=== PATIENT | female | born 1950 | race Caucasian/White ===

== ENCOUNTER 2017-02-24 13:08 | Outpatient (CLI) | payer MEDICARE | END 2017-02-24 13:09 | disposition home or self-care (01) | DX: M51.24 Other intervertebral disc displacement, thoracic region (principal); M79.2 Neuralgia and neuritis, unspecified ==

== ENCOUNTER 2017-04-18 17:46 | Outpatient (CLI) | payer MEDICARE | END 2017-04-18 17:47 | disposition EMS.NT | DX: R41.0 Disorientation, unspecified (principal) ==

== ENCOUNTER 2017-07-02 13:13 | Emergency (ER) | payer MEDICARE ==
[2017-07-02 13:26] VITALS: BP 136/83
[2017-07-02 14:40] LABS: BASOPHILS # (AUTO) 0.1 10^3/uL (0.0-0.1); BASOPHILS % (AUTO) 0.7 %; EOSINOPHILS # (AUTO) 0.1 10^3/uL (0.0-0.7); EOSINOPHILS % (AUTO) 0.8 %; LYMPHOCYTES # (AUTO) 1.5 10^3/uL (1.5-3.5); LYMPHOCYTES % (AUTO) 16.9 %; MEAN CORPUSCULAR HEMOGLOBIN 32.4 pg (27.0-31.0); MEAN CORPUSCULAR VOLUME 95.4 fL (81.0-99.0); MEAN PLATELET VOLUME 6.7 fL (7.9-10.8); MONOCYTES # (AUTO) 0.8 10^3/uL (0.0-1.0); MONOCYTES % (AUTO) 9.2 %; NEUTROPHILS # (AUTO) 6.4 10^3/uL (1.5-6.6); NEUTROPHILS % (AUTO) 72.4 %; NUCLEATED RED BLOOD CELLS AUTO 0.1 /100WBC; RED BLOOD COUNT 4.93 10^6/uL (4.20-5.40); RED CELL DISTRIBUTION WIDTH 13.6 % (12.0-15.0); UNCORRECTED WHITE BLOOD COUNT 8.8 x10^3/uL; WHITE BLOOD COUNT 8.8 x10^3/uL (4.8-10.8)
[2017-07-02 14:55] LABS: ALBUMIN/GLOBULIN RATIO 1.3 (1.0-2.2); BILIRUBIN,TOTAL 1.2 mg/dL (0.2-1.0); CALCIUM 9.6 mg/dL (8.5-10.3); CREATININE 0.7 mg/dL (0.4-1.0); POTASSIUM 4.3 mmol/L (3.5-5.0); TOTAL PROTEIN 7.7 g/dL (6.7-8.2)
[2017-07-02] MEDS ORDERED: ONDANSETRON 4 MG/2 ML VIAL IVP STA (15:16)
[2017-07-02] MEDS ORDERED: SODIUM CHLORIDE 0.9% 1,000 ML IV ONE (15:16)
[2017-07-02] MEDS ORDERED: ONDANSETRON 4 MG/2 ML VIAL ONE (15:37)
[2017-07-02] MEDS ORDERED: ONDANSETRON ODT 4 MG TABLET TL STA (16:10)
[2017-07-02] MEDS ORDERED: ONDANSETRON ODT 4 MG TABLET ONE (16:14)
--- NOTE | 2017-07-02 17:17 | ED Physician Documentation ---
PD HPI ABD PAIN - Stated complaint Stated Complaint: NAUSEA/FEMALE - Chief complaint Chief Complaint: Abd Pain - History obtained from History obtained from: Patient - History of Present Illness Timing - duration: Weeks (several) Timing - details: Still present Location: Epigastric Worsened by: Eating Similar symptoms before: Has not had sx before - Additional information Additional information: The patient is a 67-year-old female who presents with 2 complaints. She complains of being unable to swallow food or water, but states she can drink Diet Coke or red wine without difficulty. She states she has had no food for the past 3 days. She reports similar symptoms intermittently for the past 3 weeks. She denies abdominal pain or fever. She denies chest pain, cough, or shortness of breath. Her second complaint is vaginal soreness. She i concerned that she has a yeast infection. She reports associated dysuria. Review of Systems Constitutional: denies: Fever Nose: denies: Congestion Throat: denies: Sore throat Cardiac: denies: Chest pain / pressure Respiratory: denies: Dyspnea, Cough GI: reports: Nausea. denies: Abdominal Pain, Vomiting, Diarrhea : reports: Dysuria. denies: Frequency, Discharge Skin: denies: Rash Musculoskeletal: denies: Back pain Neurologic: denies: Focal weakness, Numbness, Headache PD PAST MEDICAL HISTORY - Past Medical History Past Medical History: Yes Cardiovascular: None Respiratory: None Neuro: None Endocrine/Autoimmune: Systemic lupus erythematosus GI: Other HEENT: Chronic sinusitis Musculoskeletal: Rheumatoid arthritis - Past Surgical History Past Surgical History: Yes General: Colonoscopy HEENT: Tonsil/Adenoidectomy - Present Medications Home Medications: Ambulatory Orders Medication Instructions Recorded Confirmed Acetaminophen [Tylenol] 650 mg PO Q6H PRN 02/09/14 07/02/17 Pseudoephedrine Syrup [Sudafed] 30 mg PO Q6HR PRN 02/09/14 07/02/17 Ondansetron Odt [Zofran] 4 mg TL Q6H PRN #10 tablet 07/02/17 - Allergies Allergies/Adverse Reactions: Allergies Allergy/AdvReac Type Severity Reaction Status Date / Time erythromycin base Allergy Severe Cramps Verified 07/02/17 13:27 [Erythromycin Base] Penicillins Allergy Severe Rash Verified 07/02/17 13:27 codeine AdvReac Severe Nausea Verified 07/02/17 13:27 - Social History Does the pt smoke?: No Smoking Status: Never smoker Does the pt have substance abuse?: No - Immunizations Immunizations are current?: No Immunizations: TDAP >10years/unknown PD ED PE NORMAL - Vitals Vital signs reviewed: Yes (normal) - General General: Alert and oriented X 3, Well developed/nourished, Other (Anxious appearing.) - HEENT HEENT: Atraumatic, EOMI, Pharynx benign - Neck Neck: No adenopathy, No JVD - Cardiac Cardiac: RRR, No murmur - Respiratory Respiratory: No respiratory distress, Clear bilaterally - Abdomen Abdomen: Normal bowel sounds, Soft, No organomegaly, Other (Mild epigastric tenderness to palpation. No rebound or guarding.) - Female Female : Puff Iron Operator present - Back Back: No CVA TTP - Derm Derm: No rash - Extremities Extremities: No edema, No calf tenderness / cord - Neuro Neuro: Alert and oriented X 3, No motor deficit, Normal speech PD ED PE EXPANDED - Female Female : Normal external, Normal exam, Cultures sent, Puff Iron Operator present, Other (The patient was so anxious about the pelvic exam that she would totally stiffen up with mere touching of her labia. The only way I was able to do a speculum exam was to have her spread her own labia. She was too anxious to allow bimanual exam.). No: Vaginal Discharge Results - Vitals Vitals: Oxygen O2 Source Room air - Labs Labs: Microbiology 07/02/17 16:30 Wet Prep - Final Vaginal 07/02/17 16:40 PATRICK Preparation - Final Other - Vaginal Laboratory Tests 07/02/17 07/02/17 07/02/17 14:34 14:34 15:20 WBC 8.8 RBC 4.93 Hgb 16.0 Hct 47.0 MCV 95.4 MCH 32.4 H MCHC 34.0 RDW 13.6 Plt Count 217 MPV 6.7 L Neut # 6.4 Lymph # 1.5 [place] # 0.8 Eos # 0.1 Baso # 0.1 Absolute Nucleated RBC 0.01 Nucleated RBCs 0.1 Sodium 138 Potassium 4.3 Chloride 97 L Carbon Dioxide 28 Anion Gap 13.0 BUN 7 Creatinine 0.7 Estimated GFR (MDRD) 83 L Glucose 107 H Calcium 9.6 Total Bilirubin 1.2 H AST 195 H ALT 143 H Alkaline Phosphatase 111 Total Protein 7.7 Albumin 4.4 Globulin 3.3 Albumin/Globulin Ratio 1.3 Lipase 23 Urine Color Cancelled Urine Clarity Cancelled Urine pH Cancelled Ur Specific [place] Cancelled Urine Protein Cancelled Urine Glucose (UA) Cancelled Urine Ketones Cancelled Urine Occult Blood Cancelled Urine Nitrite Cancelled Urine Bilirubin Cancelled Urine Urobilinogen Cancelled Ur Leukocyte Esterase Cancelled Ur Microscopic Review Cancelled Urine Culture Comments Cancelled PD MEDICAL DECISION MAKING - ED course Complexity details: reviewed results, re-evaluated patient, considered differential, d/w patient ED course: The patient's presentation is significant for epigastric abdominal discomfort with intermittent difficulty swallowing. Her CBC is normal, but her chemistry panel reveals mildly elevated liver enzymes with a total bilirubin of 1.2, AST 195, ALT 143. Alkaline phosphatase is normal at 111, and lipase is normal at 23. The urine sample she collected was contaminated with toilet tissue, and she was unable to provide another urine sample. Wet mount and PATRICK prep from vaginal source were negative. GC and chlamydia cultures are pending. Multiple attempts at starting a peripheral IV were unsuccessful because of the patient's extreme anxiety, causing her to move her arm with any attempt at IV placement. In fact she complained vociferously about even the tourniquet touching her arm. Treatment in the emergency department included administration of Zofran 4 mg orally. She subsequently demonstrated ability to drink water without recurrent nausea. Before providing a clean urine sample she insisted on leaving the emergency department, stating that she had already been here too long and needed to get home. I do not have adequate explanations for her symptoms of intermittent difficulty swallowing and vaginal soreness. Urinary tract infection remains a consideration, but the patient is not willing to stay to provide a urine specimen. The possibility of esophageal stricture is considered, but her symptoms are atypical for that diagnosis. With a normal lipase, I doubt pancreatitis. Her symptoms also are not typical for biliary colic. I discussed with her the importance of outpatient follow-up, as well as potentially worrisome signs or symptoms that should prompt reevaluation in the emergency department. I discussed with her that in addition to a urinalysis, an ultrasound of the right upper quadrant to evaluate her liver and gallbladder may be an appropriate next step in her evaluation. Departure - Departure Disposition: 01 Home, Self Care Clinical Impression: Elevated liver enzymes Vomiting Qualifiers: Vomiting type: unspecified Vomiting Intractability: non-intractable Nausea presence: with nausea Qualified Code(s): R11.2 - Nausea with vomiting, unspecified Abdominal pain Qualifiers: Abdominal location: right upper quadrant Qualified Code(s): R10.11 - Right upper quadrant pain Condition: Stable Instructions: ED Nausea Vomiting Prescriptions: Ondansetron Odt [Zofran] 4 mg TL Q6H PRN #10 tablet PRN Reason: Nausea / Vomiting Comments: Drink plenty of fluids. Use Zofran as prescribed if needed for nausea. Follow up with primary physician within 2 weeks. Call to schedule an appointment. Return to the emergency department if you develop increasing abdominal pain, persistent vomiting, or otherwise worsening symptoms. Discharge Date/Time: 07/02/17 17:28
[2017-07-02] MEDS ORDERED: SODIUM CHLORIDE FLUSH 0.9% 10 ML SYRINGE IVP ONE (17:19)
== END 2017-07-02 17:28 | disposition home or self-care (01) ==
LOC: ED 13:13
DX: R10.11 Right upper quadrant pain (principal); R11.2 Nausea with vomiting, unspecified; R74.8 Abnormal levels of other serum enzymes
CPT/HCPCS: 36415; 80053; 83690; 85025; 87210; 87220; 87491; 87591; 99283; Q0162; 81001; 81003; 87086

== ENCOUNTER 2017-07-19 10:44 | Emergency (ER) | payer MEDICARE ==
[2017-07-19 11:36] LABS: BILIRUBIN,URINE NEGATIVE (NEGATIVE); UA w/ MICROSCOPIC CHARGE YES
[2017-07-19 11:59] LABS: UR CULTURE IF IND NOT INDICATED; WBC,URINE 0-3 /HPF (0-5)
[2017-07-19 12:17] VITALS: BP 130/66
[2017-07-19] MEDS ORDERED: SODIUM CHLORIDE 0.9% 1,000 ML IV ONE ×2 (12:30→14:00)
--- NOTE | 2017-07-19 12:34 | ED Physician Documentation ---
PD HPI NVD - Stated complaint Stated Complaint: VOMITING - Chief complaint Chief Complaint: Abd Pain - History obtained from History obtained from: Patient - History of Present Illness Timing - onset: How many weeks ago (5) Timing - duration: Weeks (5) Timing - details: Gradual onset, Still present Associated symptoms: Abdominal pain, Dizzy, Near syncope / syncope, Loss of appetite, Weight loss Contributing factors: Alcohol use Improved by: Laying still Worsened by: Moving Similar symptoms before: Has not had sx before Recently seen: Emergency Dept (Seen here) - Additonal information Additional information: 67-year-old female with a history of celiac disease who complains of a 5 week history of a decreased appetite difficulty eating foods and vomiting. She indicates she has vomited daily for the whole 5 weeks. She is having some lower abdominal pain but is not severe. She is not having urinary symptoms and she denies diarrhea. She does indicate a decreased caliber of her stool and a more formed firm stool than usual. She denies any consumption of wheat or wheat products. She indicates that she was well prior to the onset of these symptoms 5 weeks ago. She thinks that she has lost about 10 pounds. She feels dehydrated. Review of Systems Constitutional: reports: Myalgias, Fatigue. denies: Fever Eyes: denies: Decreased vision Nose: denies: Congestion Throat: denies: Sore throat Cardiac: denies: Chest pain / pressure, Palpitations Respiratory: denies: Dyspnea, Cough GI: reports: Abdominal Pain, Nausea, Vomiting, Constipation. denies: Diarrhea : denies: Dysuria, Frequency Skin: denies: Rash Musculoskeletal: reports: Back pain. denies: Neck pain, Extremity pain, Extremity swelling Neurologic: reports: Generalized weakness. denies: Focal weakness, Numbness PD PAST MEDICAL HISTORY - Past Medical History Cardiovascular: None Respiratory: None Neuro: None Endocrine/Autoimmune: Systemic lupus erythematosus GI: Other HEENT: Chronic sinusitis Musculoskeletal: Rheumatoid arthritis - Past Surgical History Past Surgical History: Yes General: Colonoscopy HEENT: Tonsil/Adenoidectomy - Present Medications Home Medications: Ambulatory Orders Medication Instructions Recorded Confirmed Ondansetron Odt [Zofran] 4 mg TL Q6H PRN #10 tablet 07/19/17 - Allergies Allergies/Adverse Reactions: Allergies Allergy/AdvReac Type Severity Reaction Status Date / Time erythromycin base Allergy Severe Cramps Verified 07/19/17 11:06 [Erythromycin Base] Penicillins Allergy Severe Rash Verified 07/19/17 11:06 codeine AdvReac Severe Nausea Verified 07/19/17 11:06 - Social History Does the pt smoke?: No Smoking Status: Never smoker Does the pt have substance abuse?: No - Immunizations Immunizations are current?: No Immunizations: TDAP >10years/unknown - POLST Patient has POLST: No PD ED PE NORMAL - Vitals Vital signs reviewed: Yes (tachy and hypertensive) - General General: No acute distress, Well developed/nourished - HEENT HEENT: Atraumatic, PERRL, EOMI - Neck Neck: Supple, no meningeal sign - Cardiac Cardiac: Other (tachy with hyperdynamic precordium. ) - Respiratory Respiratory: No respiratory distress, Clear bilaterally - Abdomen Abdomen: Soft, Non tender - Back Back: No CVA TTP, No spinal TTP - Derm Derm: Normal color, Warm and dry, No rash - Extremities Extremities: No deformity, No edema - Neuro Neuro: No motor deficit, No sensory deficit, Normal speech - Psych Psych: Normal mood, Normal affect Results - Vitals Vitals: Vital Signs - 24 hr 07/19/17 07/19/17 10:45 12:17 Temperature 36.4 C L Heart Rate 118 H 83 Respiratory 18 16 Rate Blood Pressure 147/91 H 130/66 O2 Saturation 95 96 Oxygen O2 Source Room air - Labs Labs: Laboratory Tests 07/19/17 07/19/17 07/19/17 11:15 13:20 13:20 WBC 7.1 RBC 4.52 Hgb 14.7 Hct 43.0 MCV 95.3 MCH 32.6 H MCHC 34.2 RDW 13.4 Plt Count 148 MPV 7.5 L Neut # 5.6 Lymph # 0.8 L [place] # 0.7 Eos # 0.0 Baso # 0.0 Absolute Nucleated RBC 0.00 Nucleated RBCs 0.0 Sodium 135 Potassium 3.9 Chloride 97 L Carbon Dioxide 28 Anion Gap 10.0 BUN 9 Creatinine 0.8 Estimated GFR (MDRD) 71 L Glucose 106 H Calcium 8.4 L Total Bilirubin 1.2 H AST 257 H ALT 160 H Alkaline Phosphatase 91 Troponin I Total Protein 6.3 L Albumin 3.7 Globulin 2.6 Albumin/Globulin Ratio 1.4 Lipase 26 Urine Color YELLOW Urine Clarity CLEAR Urine pH 6.0 Ur Specific [place] 1.025 Urine Protein 30 H Urine Glucose (UA) NEGATIVE Urine Ketones 15 H Urine Occult Blood TRACE-INTA Urine Nitrite NEGATIVE Urine Bilirubin NEGATIVE Urine Urobilinogen 1 (NORMAL) Ur Leukocyte Esterase TRACE H Urine RBC 3 Urine WBC 0-3 Ur Squamous Epith Cells MOD Squamous H Urine Bacteria Rare Ur Microscopic Review INDICATED Urine Culture Comments NOT INDICATED 07/19/17 13:20 WBC RBC Hgb Hct MCV MCH MCHC RDW Plt Count MPV Neut # Lymph # [place] # Eos # Baso # Absolute Nucleated RBC Nucleated RBCs Sodium Potassium Chloride Carbon Dioxide Anion Gap BUN Creatinine Estimated GFR (MDRD) Glucose Calcium Total Bilirubin AST ALT Alkaline Phosphatase Troponin I < 0.04 Total Protein Albumin Globulin Albumin/Globulin Ratio Lipase Urine Color Urine Clarity Urine pH Ur Specific [place] Urine Protein Urine Glucose (UA) Urine Ketones Urine Occult Blood Urine Nitrite Urine Bilirubin Urine Urobilinogen Ur Leukocyte Esterase Urine RBC Urine WBC Ur Squamous Epith Cells Urine Bacteria Ur Microscopic Review Urine Culture Comments Procedures - IVC sono (time) 1230 Bedside IVC sono: IVC measures (cm) (0.69), Significant dehydration PD MEDICAL DECISION MAKING - ED course Complexity details: reviewed results, re-evaluated patient, considered differential, d/w patient ED course: 67-year-old female with a 5 week history of nausea and vomiting decreased appetite and weight loss is found to be significantly dehydrated on interrogation of the inferior vena cava and IV is begun and fluids are started. Blood work is pending. Her blood work again shows elevated LFT's today this is worse than 2 weeks ago with a stable bilirubin. She feels much improved with the fluids and wants to go home. I discussed further evaluation to include a CT of the abdomen and pelvis to further asses the hepatitis and she declined. My concern for this with weight loss and loss of appetite is pancreatic cancer. She would prefer to go home this afternoon and follow up for any further testing. Departure - Departure Disposition: 01 Home, Self Care Clinical Impression: Dehydration, Elevated liver enzymes Instructions: ED Dehydration, Liver Disease Common Tests Follow-Up: Yassine Banuelos MD [Provider Admit Priv/Credential] - Amira Christianson MD [Provider Admit Priv/Credential] - Prescriptions: Ondansetron Odt [Zofran] 4 mg TL Q6H PRN #10 tablet PRN Reason: Nausea / Vomiting Comments: Today here in the emergency department we found your significantly dehydrated. In addition there are elevations to your liver functions and this will require a follow-up. I have listed to clinics in [place] for you to consider for follow-up. There is blood work that is pending regarding hepatitis type and the follow-up for this should be through a primary care doctor.
[2017-07-19 13:30] LABS: BASOPHILS % (AUTO) 0.5 %; EOSINOPHILS % (AUTO) 0.3 %; HGB - HEMOGLOBIN 14.7 g/dL (12.0-16.0); LYMPHOCYTES # (AUTO) 0.8 10^3/uL (1.5-3.5); LYMPHOCYTES % (AUTO) 10.5 %; MEAN CORPUSCULAR HEMOGLOBIN 32.6 pg (27.0-31.0); MEAN CORPUSCULAR HGB CONC 34.2 g/dL (32.0-36.0); MEAN CORPUSCULAR VOLUME 95.3 fL (81.0-99.0); MEAN PLATELET VOLUME 7.5 fL (7.9-10.8); MONOCYTES # (AUTO) 0.7 10^3/uL (0.0-1.0); MONOCYTES % (AUTO) 10.3 %; NEUTROPHILS # (AUTO) 5.6 10^3/uL (1.5-6.6); NEUTROPHILS % (AUTO) 78.4 %; RED BLOOD COUNT 4.52 10^6/uL (4.20-5.40); RED CELL DISTRIBUTION WIDTH 13.4 % (12.0-15.0); UNCORRECTED WHITE BLOOD COUNT 7.1 x10^3/uL; WHITE BLOOD COUNT 7.1 x10^3/uL (4.8-10.8)
[2017-07-19 13:41] LABS: ALBUMIN/GLOBULIN RATIO 1.4 (1.0-2.2); BILIRUBIN,TOTAL 1.2 mg/dL (0.2-1.0); CALCIUM 8.4 mg/dL (8.5-10.3); CREATININE 0.8 mg/dL (0.4-1.0); POTASSIUM 3.9 mmol/L (3.5-5.0); TOTAL PROTEIN 6.3 g/dL (6.7-8.2)
== END 2017-07-19 14:54 | disposition home or self-care (01) ==
LOC: ED 10:44
DX: E86.0 Dehydration (principal); R74.8 Abnormal levels of other serum enzymes; K90.0 Celiac disease; M32.9 Systemic lupus erythematosus, unspecified; M06.9 Rheumatoid arthritis, unspecified
CPT/HCPCS: 36415; 80053; 80074; 81001; 81003; 83690; 84484; 85025; 87086; 96360; 96361; 99283; 99284

== ENCOUNTER 2017-07-24 11:41 | Emergency (ER) | payer MEDICARE ==
[2017-07-24] MEDS ORDERED: SODIUM CHLORIDE 0.9% 1,000 ML IV ONE ×2 (13:08→13:34)
[2017-07-24 13:30] LABS: BASOPHILS % (AUTO) 0.6 %; EOSINOPHILS # (AUTO) 0.1 10^3/uL (0.0-0.7); EOSINOPHILS % (AUTO) 0.8 %; HCT - HEMATOCRIT 45.5 % (37.0-47.0); HGB - HEMOGLOBIN 15.7 g/dL (12.0-16.0); LYMPHOCYTES # (AUTO) 1.1 10^3/uL (1.5-3.5); LYMPHOCYTES % (AUTO) 15.2 %; MEAN CORPUSCULAR HEMOGLOBIN 32.8 pg (27.0-31.0); MEAN CORPUSCULAR HGB CONC 34.6 g/dL (32.0-36.0); MONOCYTES % (AUTO) 14.3 %; NEUTROPHILS # (AUTO) 4.8 10^3/uL (1.5-6.6); NEUTROPHILS % (AUTO) 69.1 %; NUCLEATED RED BLOOD CELLS AUTO 0.1 /100WBC; RED BLOOD COUNT 4.79 10^6/uL (4.20-5.40); RED CELL DISTRIBUTION WIDTH 13.6 % (12.0-15.0)
[2017-07-24] MEDS ORDERED: PROMETHAZINE INJ 12.5 MG in SODIUM CHLORIDE 0.9% 50 ML IV STA (13:33)
--- NOTE | 2017-07-24 13:37 | ED Physician Documentation ---
History of Present Illness - Stated complaint Stated Complaint: NAUSEA/VOMITING - Chief complaint Chief Complaint: Abd Pain - History obtained from History obtained from: Patient - History of Present Illness Timing: How many weeks ago (6) Pain level max: 0 Pain level now: 0 Improved by: nothing Worsened by: eating - Additonal information Additional information: Patient is a 67-year-old female with a past medical history significant for celiac disease who presents to the emergency department for 6 weeks of vomiting. States unable to tolerate p.o., though also states she does not really try to eat or drink anything because she has no appetite. States Zofran does not help. States her sister has something similar and takes Phenergan for this which seems to help her. Denies any blood in the vomit. States that she is to drink red wine and quit drinking this because it made her vomit as well. Denies any drug use. Does not smoke. Sees a new PCP on 08/12 Review of Systems Ten Systems: 10 systems reviewed and negative Constitutional: denies: Fever, Chills Ears: denies: Ear pain Nose: denies: Rhinorrhea / runny nose, Congestion Respiratory: denies: Cough GI: reports: Nausea, Vomiting. denies: Abdominal Pain, Abdominal Swelling, Diarrhea : denies: Dysuria Skin: denies: Rash Musculoskeletal: denies: Neck pain, Back pain Neurologic: denies: Headache PD PAST MEDICAL HISTORY - Past Medical History Cardiovascular: None Respiratory: None Neuro: None Endocrine/Autoimmune: Systemic lupus erythematosus GI: Other HEENT: Chronic sinusitis Musculoskeletal: Rheumatoid arthritis - Past Surgical History Past Surgical History: Yes General: Colonoscopy HEENT: Tonsil/Adenoidectomy - Present Medications Home Medications: Ambulatory Orders Medication Instructions Recorded Confirmed Ondansetron Odt [Zofran] 4 mg TL Q6H PRN #10 tablet 07/19/17 07/24/17 Famotidine [Pepcid] 20 mg PO BID #60 tablet 07/24/17 Promethazine Sup [Phenergan Supp] 12.5 mg [place] Q6H PRN #20 supp 07/24/17 Promethazine [Phenergan] 25 mg PO Q6H PRN #10 tab 07/24/17 Sucralfate [Carafate] 1 gm PO ACHS #60 tablet 07/24/17 - Allergies Allergies/Adverse Reactions: Allergies Allergy/AdvReac Type Severity Reaction Status Date / Time erythromycin base Allergy Severe Cramps Verified 07/19/17 11:06 [Erythromycin Base] Penicillins Allergy Severe Rash Verified 07/19/17 11:06 codeine AdvReac Severe Nausea Verified 07/19/17 11:06 - Social History Does the pt smoke?: No Smoking Status: Never smoker Does the pt have substance abuse?: No - Immunizations Immunizations are current?: No Immunizations: TDAP >10years/unknown - POLST Patient has POLST: No PD ED PE NORMAL - Vitals Vital signs reviewed: Yes - General General: Alert and oriented X 3 - HEENT HEENT: Moist mucous membranes - Neck Neck: Supple, no meningeal sign - Cardiac Cardiac: RRR - Respiratory Respiratory: No respiratory distress, Clear bilaterally - Abdomen Abdomen: Soft, Non tender, Non distended - Back Back: No CVA TTP, No spinal TTP - Derm Derm: Warm and dry, No rash - Extremities Extremities: No edema, No calf tenderness / cord - Neuro Neuro: Alert and oriented X 3 - Psych Psych: Normal mood, Normal affect Results - Vitals Vitals: Vital Signs - 24 hr 07/24/17 07/24/17 07/24/17 12:03 14:14 15:18 Temperature 36.4 C L Heart Rate 96 77 76 Respiratory 16 18 20 Rate Blood Pressure 139/75 H 164/78 H 138/54 H O2 Saturation 97 97 98 Oxygen O2 Source Room air - Labs Labs: Laboratory Tests 07/24/17 07/24/17 13:27 13:27 WBC 7.0 RBC 4.79 Hgb 15.7 Hct 45.5 MCV 95.0 MCH 32.8 H MCHC 34.6 RDW 13.6 Plt Count 162 MPV 7.0 L Neut # 4.8 Lymph # 1.1 L [place] # 1.0 Eos # 0.1 Baso # 0.0 Absolute Nucleated RBC 0.00 Nucleated RBCs 0.1 Sodium 134 L Potassium 3.2 L Chloride 95 L Carbon Dioxide 24 Anion Gap 15.0 H BUN 12 Creatinine 0.7 Estimated GFR (MDRD) 83 L Glucose 121 H Calcium 9.4 Total Bilirubin 2.2 H AST 267 H ALT 297 H Alkaline Phosphatase 109 Total Protein 6.6 L Albumin 3.8 Globulin 2.8 Albumin/Globulin Ratio 1.4 Lipase 22 - Rads (name of study) CT abd/pelvis Radiology: Prelim report reviewed, EMP read contemporaneously, See rad report ( Steatosis of the liver. No localizing a acute inflammatory process. Left ovarian dermoid. Small hiatal hernia. No dilated bowel or bowel obstruction. ) PD MEDICAL DECISION MAKING - ED course Complexity details: reviewed old records, reviewed results, re-evaluated patient , considered differential, d/w patient ED course: Patient is a 67-year-old female who presents to the emergency department with vomiting for the past several weeks. She has increasingly elevated liver function tests, unclear etiology. Negative hepatitis panel recently. CT scan reveals no acute abnormalities to explain her symptoms. Does feel better after GI cocktail and is able to tolerate p.o. Possible gastritis? Has an appointment with a new PCP coming up. She is comfortable going home at this time and will return if she worsens. Patient is well-appearing, nontoxic. Afebrile. Patient counseled regarding signs and symptoms for which I believe and urgent re-evaluation would be necessary. Patient with good understanding of and agreement to plan and is comfortable going home at this time This document was made in part using voice recognition software. While efforts are made to proofread this document, sound alike and grammatical errors may occur. Departure - Departure Disposition: 01 Home, Self Care Clinical Impression: Elevated liver enzymes, Dehydration, Dermoid cyst Vomiting Qualifiers: Vomiting type: unspecified Vomiting Intractability: non-intractable Nausea presence: with nausea Qualified Code(s): R11.2 - Nausea with vomiting, unspecified Condition: Good Instructions: ED Nausea Vomiting Follow-Up: your,doctor as scheduled [Other] Prescriptions: Sucralfate [Carafate] 1 gm PO ACHS #60 tablet Famotidine [Pepcid] 20 mg PO BID #60 tablet Promethazine [Phenergan] 25 mg PO Q6H PRN #10 tab PRN Reason: Nausea / Vomiting Promethazine Sup [Phenergan Supp] 12.5 mg [place] Q6H PRN #20 supp PRN Reason: Nausea / Vomiting Comments: Return if you worsen. You need to take the medications as prescribed. You need further testing with your doctor regarding your elevated liver enzymes, this may include an ultrasound and/or abdominal MRI/ MRCP. You also have a dermoid cyst on the left ovary that needs follow up with your doctor as well. Discharge Date/Time: 07/24/17 15:23
[2017-07-24 13:43] LABS: ALBUMIN/GLOBULIN RATIO 1.4 (1.0-2.2); BILIRUBIN,TOTAL 2.2 mg/dL (0.2-1.0); CALCIUM 9.4 mg/dL (8.5-10.3); CREATININE 0.7 mg/dL (0.4-1.0); POTASSIUM 3.2 mmol/L (3.5-5.0); TOTAL PROTEIN 6.6 g/dL (6.7-8.2)
[2017-07-24] MEDS ORDERED: PROMETHAZINE 25 MG/1 ML VIAL ONE (13:45)
[2017-07-24] MEDS ORDERED: IOPAMIDOL-300 100 ML VIAL IVP ONE (14:17)
--- NOTE | 2017-07-24 14:49 | CT Preliminary Report ---
Exam: CT Abdomen/Pelvis W/ IMPRESSION: 1. Steatosis of the liver. 2. No localizing a acute inflammatory process. 3. Left ovarian dermoid. 4. Small hiatal hernia. 5. No dilated bowel or bowel obstruction. [facility] SITE ID: [id number]
--- NOTE | 2017-07-24 14:52 | CT Report ---
EXAM: CT ABDOMEN AND PELVIS EXAM DATE: 07/24/2017 02:18 PM. CLINICAL HISTORY: Vomiting x 6 weeks, elevated LFT. COMPARISONS: None. TECHNIQUE: Routine helical CT imaging was performed through the abdomen and pelvis. IV contrast: 100 cc Isovue-300 IV. Enteric contrast: No. Reconstructions: Coronal and sagittal. In accordance with CT protocol optimization, one or more of the following dose reduction techniques w ere utilized for this exam: automated exposure control, adjustment of mA and/or KV based on patient s ize, or use of iterative reconstructive technique. FINDINGS: Lung Bases: Unremarkable. Liver: Normal. No masses. Gallbladder/Bile Ducts: Unremarkable. Spleen: Normal. Pancreas: Normal. Adrenal Glands: Normal. Kidneys: Normal. No masses or hydronephrosis. Peritoneal Cavity/Bowel: Normal. No free fluid, free air or adenopathy. No masses or acute inflammato ry process. No localizing inflammatory process. There is a small hiatal hernia. Pelvic Organs: There is a fat density mass in the left adnexa consistent with a left ovarian dermoid measuring 2.1 cm in diameter. Uterus and right ovary appear unremarkable. Urinary bladder is empty. Vasculature: No aneurysms or other significant abnormality. Bones: No significant abnormality. Other: None. IMPRESSION: 1. Steatosis of the liver. 2. No localizing a acute inflammatory process. 3. Left ovarian dermoid. 4. Small hiatal hernia. 5. No dilated bowel or bowel obstruction. [facility] Referring Provider Line: [phone] SITE ID: [id number]
[2017-07-24] MEDS ORDERED: MAG HYDROX/AL HYDROX/SIMETH 30 ML UDC PO STA (14:58)
[2017-07-24] MEDS ORDERED: SUCRALFATE 1 GM/10 ML UDC PO STA (14:58)
[2017-07-24] MEDS ORDERED: PANTOPRAZOLE 40 MG VIAL IVP STA (14:58)
[2017-07-24] MEDS ORDERED: SUCRALFATE 1 GM/10 ML UDC ONE (15:04)
[2017-07-24] MEDS ORDERED: PANTOPRAZOLE 40 MG VIAL ONE (15:05)
[2017-07-24] MEDS ORDERED: MAG HYDROX/AL HYDROX/SIMETH 30 ML UDC ONE (15:05)
[2017-07-24 15:20] VITALS: BP 138/54
== END 2017-07-24 15:23 | disposition home or self-care (01) ==
LOC: ED 11:41
DX: R79.89 Other specified abnormal findings of blood chemistry (principal); E86.0 Dehydration; D36.9 Benign neoplasm, unspecified site; R11.2 Nausea with vomiting, unspecified; M32.9 Systemic lupus erythematosus, unspecified; K90.0 Celiac disease
CPT/HCPCS: 74177; 80053; 83690; 85025; 96365; 99283; 99284; A9270; J7040; Q9967; 36415

== ENCOUNTER 2017-08-12 14:36 | Outpatient (CLI) | payer MEDICARE ==
[2017-08-12 16:07] LABS: ALBUMIN/GLOBULIN RATIO 1.1 (1.0-2.2); BILIRUBIN,TOTAL 0.9 mg/dL (0.2-1.0); CALCIUM 9.4 mg/dL (8.5-10.3); CREATININE 0.7 mg/dL (0.4-1.0); POTASSIUM 3.9 mmol/L (3.5-5.0)
[2017-08-13 11:19] LABS: TEST RESULT REPORT (())
[2017-08-13 15:23] LABS: HEPATITIS A AB TOTAL(IMMUNITY) NON-REACTIVE (NON-REACTIVE)
[2017-08-14 12:47] LABS: ANA SCREEN NEGATIVE (NEGATIVE)
[2017-08-14 14:52] LABS: TEST RESULT REPORT (())
[2017-08-14 15:37] LABS: ALPHA 1 GLOBULIN 0.4 g/dL (0.2-0.3); ALPHA 2 GLOBULIN 0.9 g/dL (0.5-0.9); BETA 1 GLOBULIN 0.4 g/dL (0.4-0.6); BETA 2 GLOBULIN 0.4 g/dL (0.2-0.5); GAMMA GLOBULIN 0.8 g/dL (0.8-1.7)
[2017-08-14 21:32] LABS: LIVER KIDNEY MICROSOME AB <20.0 U (())
[2017-08-14 22:56] LABS: SMOOTH MUSCLE IGG AB <20 U (())
== END 2017-08-12 14:37 | disposition home or self-care (01) ==
LOC: LAB 14:36
PROVIDERS: ATTEND Internal Medicine
DX: R74.8 Abnormal levels of other serum enzymes (principal); R11.2 Nausea with vomiting, unspecified
CPT/HCPCS: 36415; 80053; 81599; 82390; 82728; 83516; 83540; 84155; 84165; 84466; 86038; 86317; 86376; 86704; 86708; 86709; 86803; 87340

== ENCOUNTER 2017-08-19 14:24 | Outpatient (CLI) | payer MEDICARE, MEDICAID ==
[2017-08-19 15:33] LABS: THYROID STIMULATING HORMONE 2.74 uIU/mL (0.34-5.60)
== END 2017-08-19 14:25 | disposition home or self-care (01) ==
LOC: LAB 14:24
PROVIDERS: ATTEND Internal Medicine
DX: R41.3 Other amnesia (principal)
CPT/HCPCS: 36415; 82607; 84443; 86780

== ENCOUNTER 2017-08-26 11:35 | Day surgery (SDC) | payer MEDICARE, MEDICAID ==
[2017-08-26] MEDS ORDERED: MIDAZOLAM 2 MG/2 ML VIAL IVP ONE (11:36)
[2017-08-26] MEDS ORDERED: fentaNYL 100 MCG/2 ML VIAL IVP ONE (11:36)
[2017-08-26] MEDS ORDERED: ONDANSETRON 4 MG/2 ML VIAL IVP ONE (11:36)
[2017-08-26] MEDS ORDERED: LACTATED RINGERS 1,000 ML IV ONE (12:42)
[2017-08-26] MEDS ORDERED: BENZOCAINE/TETRACAINE/BUTAMBEN SPRAY 56 GM TOP ONE (14:48)
[2017-08-26 15:42] VITALS: BP 122/68
== END 2017-08-26 11:36 | disposition home or self-care (01) ==
LOC: SDS 11:35
PROVIDERS: ATTEND Surgery
PROC: 0DB68ZX Excision of Stomach, Via Natural or Artificial Opening Endoscopic, Diagnostic (ICD-10-PCS; principal; 2017-08-26 12:45)
DX: R11.2 Nausea with vomiting, unspecified (principal)
CPT/HCPCS: 43239; 88305; A9270; J7120

== ENCOUNTER 2017-09-08 13:49 | Outpatient (CLI) | payer MEDICARE, MEDICAID ==
--- NOTE | 2017-09-08 16:47 | CT Report ---
CT OF BRAIN WITHOUT CONTRAST: 09/08/2017 CLINICAL INDICATION: Memory loss. TECHNIQUE: Axial CT images of the brain were obtained without contrast. No previous CT is available f or comparison. FINDINGS: The ventricles and sulci demonstrate mild symmetric enlargement, compatible with atrophy. There is no evidence of hydrocephalus. No hemorrhage, mass effect, or midline shift is present. The b asilar cisterns are patent. The visualized orbital contents and paranasal sinuses are unremarkable. IMPRESSION: MILD ATROPHY. NO HEMORRHAGE OR MASS EFFECT. In accordance with CT protocol optimization, one or more of the following dose reduction techniques w ere utilized for this exam: automated exposure control, adjustment of mA and/or KV based on patient size, or use of iterative reconstructive technique. JOB #: [id number] EXT JOB #:[id number]
== END 2017-09-08 13:50 | disposition home or self-care (01) ==
LOC: DI 13:49
PROVIDERS: ATTEND Internal Medicine
DX: G31.9 Degenerative disease of nervous system, unspecified (principal); R41.3 Other amnesia
CPT/HCPCS: 70450

== ENCOUNTER 2017-09-15 14:07 | Observation (INO) | payer MEDICARE, MEDICAID ==
--- NOTE | 2017-09-15 14:24 | ED Physician Documentation ---
PD HPI ALTERED MENTAL STATUS - Stated complaint Stated Complaint: WELFARE CHECK - Chief complaint Chief Complaint: Neuro - History obtained from History obtained from: EMS - History of Present Illness Timing - onset: Other (67yo woman brought in by EMS for welfare check. Hx from Dr Christianson, has H/O EtOH. Charts shows she was a reasonable historian recently and recent endoscopy with H. Pylori. Seems like an subacute decrease in mental status. Does use EtOH. Per Dr. Christianson she thinks probably a long history of alcohol abuse has caused this. She had a head CT just a few days ago that was grossly negative.) Review of Systems Unable to obtain: AMS PD PAST MEDICAL HISTORY - Past Medical History Cardiovascular: None Respiratory: None Neuro: None Endocrine/Autoimmune: Systemic lupus erythematosus GI: Other : None HEENT: Chronic sinusitis Psych: None Musculoskeletal: Rheumatoid arthritis Derm: None - Past Surgical History Past Surgical History: Yes General: Colonoscopy HEENT: Tonsil/Adenoidectomy - Present Medications Home Medications: Ambulatory Orders Medication Instructions Recorded Confirmed Clarithromycin 500 mg PO BID 09/17/17 09/17/17 Metronidazole 1 tab PO TID 09/17/17 09/17/17 Omeprazole [PriLOSEC] 20 mg PO DAILY 09/17/17 09/17/17 Promethazine [Phenergan] 12.5 mg MN Q6H PRN 09/17/17 09/17/17 - Allergies Allergies/Adverse Reactions: Allergies Allergy/AdvReac Type Severity Reaction Status Date / Time erythromycin base Allergy Severe Cramps Verified 09/15/17 19:18 [Erythromycin Base] Penicillins Allergy Severe Rash Verified 09/15/17 19:18 codeine AdvReac Severe Nausea Verified 09/15/17 19:18 - Social History Does the pt smoke?: No Smoking Status: Never smoker Does the pt have substance abuse?: No - Immunizations Immunizations are current?: No Immunizations: TDAP >10years/unknown - POLST Patient has POLST: No PD ED PE NORMAL - Vitals Vital signs reviewed: Yes - General General: Other (She is pleasant and oriented to person but not place or time, cannot name the date or year. She thinks she is in [place]. She recognizes she is in a hospital but she is at [place].) - HEENT HEENT: Other (Small pupils without nystagmus) - Neck Neck: Supple, no meningeal sign, No bony TTP - Cardiac Cardiac: RRR, No murmur - Respiratory Respiratory: No respiratory distress, Clear bilaterally - Abdomen Abdomen: Normal bowel sounds, Soft, Non tender - Extremities Extremities: No deformity, No tenderness to palpate - Neuro Neuro: campaign analyst 2-12 intact, No motor deficit, No sensory deficit, Other ( Cooperative with good strength in all 4 extremities, no asterixis. Normal finger to nose testing. No evidence of acute intoxication.) - Psych Psych: Normal mood, Normal affect Results - Vitals Vitals: Vital Signs - 24 hr 09/17/17 09/18/17 09/18/17 17:00 00:10 06:37 Temperature 36.6 C Heart Rate 88 86 92 Respiratory 15 16 16 Rate Blood Pressure 146/69 H 151/74 H 158/82 H O2 Saturation 99 99 99 09/18/17 11:48 Temperature 36.0 C L Heart Rate 60 Respiratory 14 Rate Blood Pressure 143/68 H O2 Saturation 99 Oxygen O2 Source Room air - Labs Labs: Laboratory Tests 09/15/17 09/15/17 09/15/17 15:00 15:00 15:00 WBC 13.5 H RBC 4.80 Hgb 15.0 Hct 44.5 MCV 92.6 MCH 31.3 H MCHC 33.8 RDW 13.5 Plt Count 294 MPV 7.3 L Neut # 10.8 H Lymph # 1.4 L [place] # 1.2 H Eos # 0.1 Baso # 0.0 Absolute Nucleated RBC 0.01 Nucleated RBC % 0.0 PT 11.6 INR 1.0 Sodium 135 Potassium 3.4 L Chloride 93 L Carbon Dioxide 27 Anion Gap 15.0 H BUN 15 Creatinine 0.8 Estimated GFR (MDRD) 71 L Glucose 143 H Calcium 9.8 Magnesium 1.9 Total Bilirubin 1.3 H AST 24 ALT 17 Alkaline Phosphatase 72 Ammonia Total Creatine Kinase 18 L Troponin I Total Protein 7.2 Albumin 3.9 Globulin 3.3 Albumin/Globulin Ratio 1.2 Lipase 28 Folate TSH Urine Color Urine Clarity Urine pH Ur Specific [place] Urine Protein Urine Glucose (UA) Urine Ketones Urine Occult Blood Urine Nitrite Urine Bilirubin Urine Urobilinogen Ur Leukocyte Esterase Urine RBC Urine WBC Ur Squamous Epith Cells Urine Bacteria Urine Mucus Ur Microscopic Review Urine Culture Comments Salicylates < 6.0 Urine Opiates Screen Ur Oxycodone Screen Urine Methadone Screen Ur Propoxyphene Screen Acetaminophen < 10 L Ur Barbiturates Screen Ur Tricyclics Screen Ur Phencyclidine Scrn Ur Amphetamine Screen U Methamphetamines Scrn U Benzodiazepines Scrn Urine Cocaine Screen U Cannabinoids Screen Ethyl Alcohol < 5.0 09/15/17 09/15/17 09/15/17 15:00 15:00 15:00 WBC RBC Hgb Hct MCV MCH MCHC RDW Plt Count MPV Neut # Lymph # [place] # Eos # Baso # Absolute Nucleated RBC Nucleated RBC % PT INR Sodium Potassium Chloride Carbon Dioxide Anion Gap BUN Creatinine Estimated GFR (MDRD) Glucose Calcium Magnesium Total Bilirubin AST ALT Alkaline Phosphatase Ammonia 9.0 Total Creatine Kinase Troponin I < 0.04 Total Protein Albumin Globulin Albumin/Globulin Ratio Lipase Folate TSH 1.91 Urine Color Urine Clarity Urine pH Ur Specific [place] Urine Protein Urine Glucose (UA) Urine Ketones Urine Occult Blood Urine Nitrite Urine Bilirubin Urine Urobilinogen Ur Leukocyte Esterase Urine RBC Urine WBC Ur Squamous Epith Cells Urine Bacteria Urine Mucus Ur Microscopic Review Urine Culture Comments Salicylates Urine Opiates Screen Ur Oxycodone Screen Urine Methadone Screen Ur Propoxyphene Screen Acetaminophen Ur Barbiturates Screen Ur Tricyclics Screen Ur Phencyclidine Scrn Ur Amphetamine Screen U Methamphetamines Scrn U Benzodiazepines Scrn Urine Cocaine Screen U Cannabinoids Screen Ethyl Alcohol 09/15/17 09/18/17 09/18/17 16:00 09:39 09:50 WBC RBC Hgb Hct MCV MCH MCHC RDW Plt Count MPV Neut # Lymph # [place] # Eos # Baso # Absolute Nucleated RBC Nucleated RBC % PT INR Sodium Potassium Chloride Carbon Dioxide Anion Gap BUN Creatinine Estimated GFR (MDRD) Glucose Calcium Magnesium Total Bilirubin AST ALT Alkaline Phosphatase Ammonia Total Creatine Kinase Troponin I Total Protein Albumin Globulin Albumin/Globulin Ratio Lipase Folate 3.20 L TSH Urine Color YELLOW YELLOW Urine Clarity CLEAR CLEAR Urine pH 6.0 6.0 Ur Specific [place] <=1.005 1.020 Urine Protein NEGATIVE NEGATIVE Urine Glucose (UA) NEGATIVE NEGATIVE Urine Ketones NEGATIVE NEGATIVE Urine Occult Blood NEGATIVE NEGATIVE Urine Nitrite NEGATIVE NEGATIVE Urine Bilirubin NEGATIVE NEGATIVE Urine Urobilinogen 4 H 2 H Ur Leukocyte Esterase SMALL H NEGATIVE Urine RBC 0-5 Urine WBC 4-5 Ur Squamous Epith Cells MOD Squamous H Urine Bacteria Few Urine Mucus Few Strands Ur Microscopic Review INDICATED NOT INDICATED Urine Culture Comments NOT INDICATED NOT INDICATED Salicylates Urine Opiates Screen NEGATIVE Ur Oxycodone Screen NEGATIVE Urine Methadone Screen NEGATIVE Ur Propoxyphene Screen NEGATIVE Acetaminophen Ur Barbiturates Screen NEGATIVE Ur Tricyclics Screen NEGATIVE Ur Phencyclidine Scrn NEGATIVE Ur Amphetamine Screen NEGATIVE U Methamphetamines Scrn NEGATIVE U Benzodiazepines Scrn NEGATIVE Urine Cocaine Screen NEGATIVE U Cannabinoids Screen NEGATIVE Ethyl Alcohol PD MEDICAL DECISION MAKING - ED course ED course: I had a long conversation with her sister in [place] who is available at [phone]. The patient has a daughter, but per Vira the daughter is estranged from her wants nothing to do with her. She agrees that for a long time she has been drinking and is not drinking anymore but actually has a caser and APS involved. See Dr Ramachandran's and Dr Fish's notes for interim coverage. She was started on H Pylori tx in ED. Per KRISTIE at 3pm on 09/[address] her in obs on the floor. Departure - Departure Disposition: ED Place in Observation Clinical Impression: Gravely disabled Condition: Stable
[2017-09-15 15:12] LABS: BASOPHILS % (AUTO) 0.4 %; EOSINOPHILS # (AUTO) 0.1 10^3/uL (0.0-0.7); EOSINOPHILS % (AUTO) 0.7 %; HCT - HEMATOCRIT 44.5 % (37.0-47.0); LYMPHOCYTES # (AUTO) 1.4 10^3/uL (1.5-3.5); LYMPHOCYTES % (AUTO) 10.6 %; MEAN CORPUSCULAR HEMOGLOBIN 31.3 pg (27.0-31.0); MEAN CORPUSCULAR HGB CONC 33.8 g/dL (32.0-36.0); MEAN CORPUSCULAR VOLUME 92.6 fL (81.0-99.0); MEAN PLATELET VOLUME 7.3 fL (7.9-10.8); MONOCYTES # (AUTO) 1.2 10^3/uL (0.0-1.0); MONOCYTES % (AUTO) 8.8 %; NEUTROPHILS # (AUTO) 10.8 10^3/uL (1.5-6.6); NEUTROPHILS % (AUTO) 79.5 %; RED CELL DISTRIBUTION WIDTH 13.5 % (12.0-15.0); UNCORRECTED WHITE BLOOD COUNT 13.5 x10^3/uL; WHITE BLOOD COUNT 13.5 x10^3/uL (4.8-10.8)
[2017-09-15 15:18] LABS: PT - PROTHROMBIN TIME 11.6 secs (9.9-12.6)
[2017-09-15 15:27] LABS: ALBUMIN/GLOBULIN RATIO 1.2 (1.0-2.2); BILIRUBIN,TOTAL 1.3 mg/dL (0.2-1.0); BUN - BLOOD UREA NITROGEN 15 mg/dL (6-20); CALCIUM 9.8 mg/dL (8.5-10.3); CARBON DIOXIDE - CO2 27 mmol/L (21-32); CHLORIDE 93 mmol/L (101-111); CREATININE 0.8 mg/dL (0.4-1.0); GFR - MDRD 71 (>89); GLUCOSE 143 mg/dL (70-100); LIPASE 28 U/L (22-51); MAGNESIUM 1.9 mg/dL (1.7-2.8); POTASSIUM 3.4 mmol/L (3.5-5.0); SALICYLATE < 6.0 mg/dL; SODIUM 135 mmol/L (135-145); TOTAL PROTEIN 7.2 g/dL (6.7-8.2)
[2017-09-15 15:36] LABS: ACETAMINOPHEN < 10 ug/mL (10-30)
[2017-09-15 16:14] LABS: BILIRUBIN,URINE NEGATIVE (NEGATIVE); UA w/ MICROSCOPIC CHARGE YES
[2017-09-15 16:18] LABS: UR CULTURE IF IND NOT INDICATED
[2017-09-15] MEDS ORDERED: POTASSIUM CHLORIDE 20 MEQ TABLET PO STA (16:26)
[2017-09-15] MEDS ORDERED: THIAMINE 100 MG TABLET PO STA (16:26)
[2017-09-15] MEDS ORDERED: POTASSIUM CHLORIDE 20 MEQ TABLET PO ONE (16:37)
[2017-09-15] MEDS ORDERED: THIAMINE 100 MG TABLET PO ONE (16:37)
[2017-09-15] MEDS ORDERED: LORazepam 0.5 MG TABLET PO STA (22:29)
[2017-09-15] MEDS ORDERED: LORazepam 0.5 MG TABLET ONE (22:35)
--- NOTE | 2017-09-16 08:30 | ED Physician Documentation ---
History of Present Illness - Stated complaint Stated Complaint: WELFARE CHECK - Chief complaint Chief Complaint: Neuro PD PAST MEDICAL HISTORY - Past Medical History Past Medical History: Yes Cardiovascular: None Respiratory: None Neuro: None Endocrine/Autoimmune: Systemic lupus erythematosus GI: Other : None HEENT: Chronic sinusitis Psych: None Musculoskeletal: Rheumatoid arthritis Derm: None - Past Surgical History Past Surgical History: Yes General: Colonoscopy HEENT: Tonsil/Adenoidectomy - Present Medications Home Medications: Ambulatory Orders Medication Instructions Recorded Confirmed No Known Home Medications [No 09/15/17 09/15/17 Known Home Medications] - Allergies Allergies/Adverse Reactions: Allergies Allergy/AdvReac Type Severity Reaction Status Date / Time erythromycin base Allergy Severe Cramps Verified 09/15/17 19:18 [Erythromycin Base] Penicillins Allergy Severe Rash Verified 09/15/17 19:18 codeine AdvReac Severe Nausea Verified 09/15/17 19:18 - Social History Does the pt smoke?: No Smoking Status: Never smoker Does the pt have substance abuse?: No - Immunizations Immunizations are current?: No Immunizations: TDAP >10years/unknown - POLST Patient has POLST: No Results - Vitals Vitals: Vital Signs - 24 hr 09/15/17 09/16/17 09/16/17 22:25 06:28 11:52 Temperature 36.1 C L Heart Rate 84 102 H 80 Respiratory 16 14 16 Rate Blood Pressure 129/68 157/82 H 138/76 H O2 Saturation 99 99 99 09/16/17 09/16/17 15:04 19:24 Temperature 36.0 C L 36.0 C L Heart Rate 100 103 H Respiratory 18 18 Rate Blood Pressure 131/71 H 149/76 H O2 Saturation 96 100 Oxygen O2 Source Room air - EKG (time done) 1821 Rate: Rate (enter#) (104) Rhythm: NSR [place]: Normal Intervals: Normal NE, RBBB Ischemia: Non specific changes - Labs Labs: Laboratory Tests 09/15/17 09/15/17 09/15/17 15:00 15:00 15:00 WBC 13.5 H RBC 4.80 Hgb 15.0 Hct 44.5 MCV 92.6 MCH 31.3 H MCHC 33.8 RDW 13.5 Plt Count 294 MPV 7.3 L Neut # 10.8 H Lymph # 1.4 L [place] # 1.2 H Eos # 0.1 Baso # 0.0 Absolute Nucleated RBC 0.01 Nucleated RBC % 0.0 PT 11.6 INR 1.0 Sodium 135 Potassium 3.4 L Chloride 93 L Carbon Dioxide 27 Anion Gap 15.0 H BUN 15 Creatinine 0.8 Estimated GFR (MDRD) 71 L Glucose 143 H Calcium 9.8 Magnesium 1.9 Total Bilirubin 1.3 H AST 24 ALT 17 Alkaline Phosphatase 72 Ammonia Total Creatine Kinase 18 L Troponin I Total Protein 7.2 Albumin 3.9 Globulin 3.3 Albumin/Globulin Ratio 1.2 Lipase 28 TSH Urine Color Urine Clarity Urine pH Ur Specific [place] Urine Protein Urine Glucose (UA) Urine Ketones Urine Occult Blood Urine Nitrite Urine Bilirubin Urine Urobilinogen Ur Leukocyte Esterase Urine RBC Urine WBC Ur Squamous Epith Cells Urine Bacteria Urine Mucus Ur Microscopic Review Urine Culture Comments Salicylates < 6.0 Urine Opiates Screen Ur Oxycodone Screen Urine Methadone Screen Ur Propoxyphene Screen Acetaminophen < 10 L Ur Barbiturates Screen Ur Tricyclics Screen Ur Phencyclidine Scrn Ur Amphetamine Screen U Methamphetamines Scrn U Benzodiazepines Scrn Urine Cocaine Screen U Cannabinoids Screen Ethyl Alcohol < 5.0 09/15/17 09/15/17 09/15/17 15:00 15:00 15:00 WBC RBC Hgb Hct MCV MCH MCHC RDW Plt Count MPV Neut # Lymph # [place] # Eos # Baso # Absolute Nucleated RBC Nucleated RBC % PT INR Sodium Potassium Chloride Carbon Dioxide Anion Gap BUN Creatinine Estimated GFR (MDRD) Glucose Calcium Magnesium Total Bilirubin AST ALT Alkaline Phosphatase Ammonia 9.0 Total Creatine Kinase Troponin I < 0.04 Total Protein Albumin Globulin Albumin/Globulin Ratio Lipase TSH 1.91 Urine Color Urine Clarity Urine pH Ur Specific [place] Urine Protein Urine Glucose (UA) Urine Ketones Urine Occult Blood Urine Nitrite Urine Bilirubin Urine Urobilinogen Ur Leukocyte Esterase Urine RBC Urine WBC Ur Squamous Epith Cells Urine Bacteria Urine Mucus Ur Microscopic Review Urine Culture Comments Salicylates Urine Opiates Screen Ur Oxycodone Screen Urine Methadone Screen Ur Propoxyphene Screen Acetaminophen Ur Barbiturates Screen Ur Tricyclics Screen Ur Phencyclidine Scrn Ur Amphetamine Screen U Methamphetamines Scrn U Benzodiazepines Scrn Urine Cocaine Screen U Cannabinoids Screen Ethyl Alcohol 09/15/17 16:00 WBC RBC Hgb Hct MCV MCH MCHC RDW Plt Count MPV Neut # Lymph # [place] # Eos # Baso # Absolute Nucleated RBC Nucleated RBC % PT INR Sodium Potassium Chloride Carbon Dioxide Anion Gap BUN Creatinine Estimated GFR (MDRD) Glucose Calcium Magnesium Total Bilirubin AST ALT Alkaline Phosphatase Ammonia Total Creatine Kinase Troponin I Total Protein Albumin Globulin Albumin/Globulin Ratio Lipase TSH Urine Color YELLOW Urine Clarity CLEAR Urine pH 6.0 Ur Specific [place] <=1.005 Urine Protein NEGATIVE Urine Glucose (UA) NEGATIVE Urine Ketones NEGATIVE Urine Occult Blood NEGATIVE Urine Nitrite NEGATIVE Urine Bilirubin NEGATIVE Urine Urobilinogen 4 H Ur Leukocyte Esterase SMALL H Urine RBC 0-5 Urine WBC 4-5 Ur Squamous Epith Cells MOD Squamous H Urine Bacteria Few Urine Mucus Few Strands Ur Microscopic Review INDICATED Urine Culture Comments NOT INDICATED Salicylates Urine Opiates Screen NEGATIVE Ur Oxycodone Screen NEGATIVE Urine Methadone Screen NEGATIVE Ur Propoxyphene Screen NEGATIVE Acetaminophen Ur Barbiturates Screen NEGATIVE Ur Tricyclics Screen NEGATIVE Ur Phencyclidine Scrn NEGATIVE Ur Amphetamine Screen NEGATIVE U Methamphetamines Scrn NEGATIVE U Benzodiazepines Scrn NEGATIVE Urine Cocaine Screen NEGATIVE U Cannabinoids Screen NEGATIVE Ethyl Alcohol PD MEDICAL DECISION MAKING - ED course ED course: assumed are 7 AM per turn over from cook night pt was living alone and her family called for a welfare check and it was found that pt is no longer able to safely care for herself no reported injury or illness brought to ER labs done and fine per Dr Nassar's note he spoke to Dr Marie yesterday and she is aware of pt declining mental status and iit is subacute and she has already gotten a CTH which did not show any acute process and it is believed these sc may be due to sequelae of a long hx of EtOH abuse waiting for SW to try and place pt for her safety I went to see pt - she has no complaints or concerns RRR CTAB pt awake and alert and cooperative but not remember her address, where her car is, she spoke to 5 min ago, thinks she lives with her sister (who is in [place] per turnover etc) I alos spoke to Dr Marie who explains pt has has severe memeory loss and diff with basic tasks since jul when pt established with that clinic - in fact the clinic staff had to accompany the pt to the hospital to get her CTH done, although pt signed consent for EGD she has no recollection of the surgery, per Dr Christianson her sister was going to come get er and take her to [place] but then "gave up on her" which is when Dr Christianson called APS per SW most recent update pt has no money or snf care insurance to pay for assisted living SNF memory care etc, may need to have a guardian appointed etc, unlikely to be placed any time soon, gave lovenox and updated nurse manager lab for ER based on pts memory loss and descrption of her house and Dr Knott observations feel this pt is gravely disabled and not able to care for herself - rec DCR eval for geripsych so that was initiated DCR Khushbu May saw pt - agrees gravely disabled - [facility] may accept - they requested labs (done already) CTH (done this week for same sx0 and EKG (done per req shows RBBB) and all these results were faxed awaiting [facility] review and hopefully acceptance turned over to night EMP Dr Le Departure - Departure Clinical Impression: Gravely disabled
[2017-09-16] MEDS ORDERED: POTASSIUM CHLORIDE 20 MEQ TABLET PO STA (18:13)
[2017-09-16] MEDS ORDERED: POTASSIUM CHLORIDE 20 MEQ TABLET PO ONE (18:38)
[2017-09-16] MEDS ORDERED: ENOXAPARIN 40 MG/0.4 ML SYRINGE SUBQ ONE (18:38)
[2017-09-16] MEDS ORDERED: ENOXAPARIN 40 MG/0.4 ML SYRINGE SUBQ STA (19:06)
--- NOTE | 2017-09-16 23:03 | ED Physician Documentation ---
ED Addendum - Addendum Addendum: 09/16/17 23:01 [facility] Khushbu Ospina and Enoch, saw patient and no psychiatric facilities are willing to take the patient as they state that she has dementia. Enoch talked with the patients sister, Vira and she states she will come tomorrow with a friend to see her sister and possibly take her home. Patient will stay in the ED tonight.
[2017-09-17] MEDS ORDERED: LORazepam 0.5 MG TABLET PO STA ×2 (00:32→21:22)
[2017-09-17] MEDS ORDERED: LORazepam 0.5 MG TABLET ONE ×2 (00:35→21:28)
[2017-09-17] MEDS ORDERED: ENOXAPARIN 40 MG/0.4 ML SYRINGE SUBQ SCH (09:00)
[2017-09-17] MEDS ORDERED: A & D OINTMENT 5 GM PACKET TOP ONE (17:38)
[2017-09-17] MEDS ORDERED: ACETAMINOPHEN 325 MG TABLET PO STA (17:44)
[2017-09-17] MEDS ORDERED: ENOXAPARIN 40 MG/0.4 ML SYRINGE SUBQ ONE (17:52)
[2017-09-17] MEDS ORDERED: ACETAMINOPHEN 325 MG TABLET PO ONE (17:52)
--- NOTE | 2017-09-17 19:47 | ED Physician Documentation ---
ED Addendum - Addendum Addendum: 09/17/17 19:46 Patient's sister states patient is supposed to be on clarithromycin 500mg PO BID and metronidazole 500mg PO TID for H. Pylori. This was ordered.
[2017-09-17] MEDS ORDERED: CLARITHROMYCIN 500 MG TABLET PO SCH (20:00)
[2017-09-17] MEDS ORDERED: metroNIDAZOLE 250 MG TABLET PO ONE (21:12)
[2017-09-17] MEDS ORDERED: CLARITHROMYCIN 500 MG TABLET PO ONE (21:18)
[2017-09-17] MEDS: metroNIDAZOLE 250 MG TABLET PO SCH (21:24)
[2017-09-18] MEDS: metroNIDAZOLE 250 MG TABLET PO SCH ×3 (07:01→21:11)
[2017-09-18] MEDS ORDERED: metroNIDAZOLE 250 MG TABLET PO ONE ×2 (07:05→14:44)
--- NOTE | 2017-09-18 08:09 | ED Physician Documentation ---
History of Present Illness - Stated complaint Stated Complaint: WELFARE CHECK - Chief complaint Chief Complaint: Neuro PD PAST MEDICAL HISTORY - Past Medical History Past Medical History: Yes Cardiovascular: None Respiratory: None Neuro: None Endocrine/Autoimmune: Systemic lupus erythematosus GI: Other : None HEENT: Chronic sinusitis Psych: None Musculoskeletal: Rheumatoid arthritis Derm: None Other Past Medical History: Fm Hx aortic aneurysm - Past Surgical History Past Surgical History: Yes General: Colonoscopy HEENT: Tonsil/Adenoidectomy - Present Medications Home Medications: Ambulatory Orders Medication Instructions Recorded Confirmed Clarithromycin 500 mg PO BID 09/17/17 09/17/17 Metronidazole 1 tab PO TID 09/17/17 09/17/17 Omeprazole [PriLOSEC] 20 mg PO DAILY 09/17/17 09/17/17 Promethazine [Phenergan] 12.5 mg RI Q6H PRN 09/17/17 09/17/17 - Allergies Allergies/Adverse Reactions: Allergies Allergy/AdvReac Type Severity Reaction Status Date / Time erythromycin base Allergy Severe Cramps Verified 09/15/17 19:18 [Erythromycin Base] Penicillins Allergy Severe Rash Verified 09/15/17 19:18 gluten Allergy Cramps Verified 09/18/17 16:44 codeine AdvReac Severe Nausea Verified 09/15/17 19:18 - Social History Does the pt smoke?: No Smoking Status: Never smoker Does the pt have substance abuse?: No - Immunizations Immunizations are current?: No Immunizations: TDAP >10years/unknown - POLST Patient has POLST: No Results - Vitals Vitals: Oxygen O2 Source Room air - Labs Labs: Laboratory Tests 09/15/17 09/15/17 09/15/17 15:00 15:00 15:00 WBC 13.5 H RBC 4.80 Hgb 15.0 Hct 44.5 MCV 92.6 MCH 31.3 H MCHC 33.8 RDW 13.5 Plt Count 294 MPV 7.3 L Neut # 10.8 H Lymph # 1.4 L [place] # 1.2 H Eos # 0.1 Baso # 0.0 Absolute Nucleated RBC 0.01 Nucleated RBC % 0.0 PT 11.6 INR 1.0 Sodium 135 Potassium 3.4 L Chloride 93 L Carbon Dioxide 27 Anion Gap 15.0 H BUN 15 Creatinine 0.8 Estimated GFR (MDRD) 71 L Glucose 143 H Calcium 9.8 Magnesium 1.9 Total Bilirubin 1.3 H AST 24 ALT 17 Alkaline Phosphatase 72 Ammonia Total Creatine Kinase 18 L Troponin I Total Protein 7.2 Albumin 3.9 Globulin 3.3 Albumin/Globulin Ratio 1.2 Lipase 28 TSH Urine Color Urine Clarity Urine pH Ur Specific [place] Urine Protein Urine Glucose (UA) Urine Ketones Urine Occult Blood Urine Nitrite Urine Bilirubin Urine Urobilinogen Ur Leukocyte Esterase Urine RBC Urine WBC Ur Squamous Epith Cells Urine Bacteria Urine Mucus Ur Microscopic Review Urine Culture Comments Salicylates < 6.0 Urine Opiates Screen Ur Oxycodone Screen Urine Methadone Screen Ur Propoxyphene Screen Acetaminophen < 10 L Ur Barbiturates Screen Ur Tricyclics Screen Ur Phencyclidine Scrn Ur Amphetamine Screen U Methamphetamines Scrn U Benzodiazepines Scrn Urine Cocaine Screen U Cannabinoids Screen Ethyl Alcohol < 5.0 09/15/17 09/15/17 09/15/17 15:00 15:00 15:00 WBC RBC Hgb Hct MCV MCH MCHC RDW Plt Count MPV Neut # Lymph # [place] # Eos # Baso # Absolute Nucleated RBC Nucleated RBC % PT INR Sodium Potassium Chloride Carbon Dioxide Anion Gap BUN Creatinine Estimated GFR (MDRD) Glucose Calcium Magnesium Total Bilirubin AST ALT Alkaline Phosphatase Ammonia 9.0 Total Creatine Kinase Troponin I < 0.04 Total Protein Albumin Globulin Albumin/Globulin Ratio Lipase TSH 1.91 Urine Color Urine Clarity Urine pH Ur Specific [place] Urine Protein Urine Glucose (UA) Urine Ketones Urine Occult Blood Urine Nitrite Urine Bilirubin Urine Urobilinogen Ur Leukocyte Esterase Urine RBC Urine WBC Ur Squamous Epith Cells Urine Bacteria Urine Mucus Ur Microscopic Review Urine Culture Comments Salicylates Urine Opiates Screen Ur Oxycodone Screen Urine Methadone Screen Ur Propoxyphene Screen Acetaminophen Ur Barbiturates Screen Ur Tricyclics Screen Ur Phencyclidine Scrn Ur Amphetamine Screen U Methamphetamines Scrn U Benzodiazepines Scrn Urine Cocaine Screen U Cannabinoids Screen Ethyl Alcohol 09/15/17 16:00 WBC RBC Hgb Hct MCV MCH MCHC RDW Plt Count MPV Neut # Lymph # [place] # Eos # Baso # Absolute Nucleated RBC Nucleated RBC % PT INR Sodium Potassium Chloride Carbon Dioxide Anion Gap BUN Creatinine Estimated GFR (MDRD) Glucose Calcium Magnesium Total Bilirubin AST ALT Alkaline Phosphatase Ammonia Total Creatine Kinase Troponin I Total Protein Albumin Globulin Albumin/Globulin Ratio Lipase TSH Urine Color YELLOW Urine Clarity CLEAR Urine pH 6.0 Ur Specific [place] <=1.005 Urine Protein NEGATIVE Urine Glucose (UA) NEGATIVE Urine Ketones NEGATIVE Urine Occult Blood NEGATIVE Urine Nitrite NEGATIVE Urine Bilirubin NEGATIVE Urine Urobilinogen 4 H Ur Leukocyte Esterase SMALL H Urine RBC 0-5 Urine WBC 4-5 Ur Squamous Epith Cells MOD Squamous H Urine Bacteria Few Urine Mucus Few Strands Ur Microscopic Review INDICATED Urine Culture Comments NOT INDICATED Salicylates Urine Opiates Screen NEGATIVE Ur Oxycodone Screen NEGATIVE Urine Methadone Screen NEGATIVE Ur Propoxyphene Screen NEGATIVE Acetaminophen Ur Barbiturates Screen NEGATIVE Ur Tricyclics Screen NEGATIVE Ur Phencyclidine Scrn NEGATIVE Ur Amphetamine Screen NEGATIVE U Methamphetamines Scrn NEGATIVE U Benzodiazepines Scrn NEGATIVE Urine Cocaine Screen NEGATIVE U Cannabinoids Screen NEGATIVE Ethyl Alcohol - Rads (name of study) brain MRI Radiology: See rad report (no acute infarct mass bleed. senescent changes, mild white matter flair is non specific but tyoically small vessel ischemic changes) hips/pelvis Radiology: See rad report (normal) PD MEDICAL DECISION MAKING - ED course ED course: assumed care again 7 AM 67 female brought in after a welfare check indicated she was unsafe to live alone seems pt has subacute / chronic progressive memory loss (per PMD and NN/SW notes summarizing family and friend conversation this has been progressive since at least last spring - though review of 3 ER notes from Jun and early Jul 2017 all indicate pt was alert and oriented and able to provide an appropriate history herself PMD has seen pt for same and done a work up including CTH and also filed an APS report pt is now gravely disabled and unable to safely care for herself so was brought to ER for her safety she has no POA, limited finances, and her family members can not assume responsibility and care of her (see SW notes) pt was seen by DCR and attempts were made to place her for geripsych but she was declined since facilities felt she has dementia (not actually dx with dementia though) pt boarding in ER pending placement for safety went to see pt - she seems worse than when I cared for her 2 days ago, more confused, having hip pain L > R with any movement, per NN pt fell two nights ago , unwitnessed, did not seem to have any injuries at that time head atraumatic, pt no c/of EASON C spine NT RRR CTAB TTP L > R hip, shuffling gait, needs assist to transfer now strong urine odor, pt in an adult diaper based on prior notes pt has a hx of EtOH abuse so this may be [place] (or more likely [place] at this late pt in time) - pt was given thiamine on the first day but not since - labs unlikely to be helpful, CT did not show typical findings but MRI may be more sensitive will image pelvis will try and get MRI brain and rpt UA as pt may have developed a UTI family inquired re neuro eval - we have no neuro at [facility], unlikely pt would be accepted in tranfer to a tertiary care facility given subacute to chronic nature this is really an outpt wup and pt would not have a dispo after eval, will ask if tele neuro is possible spoke to [facility] to req tele neuro eval - they do not normally do tele neuro except for strokes - but advised to call back after MRI to discuss possible transfer for neuro eval and advised high dose thiamine (per up to date 200-500mg IV TID for 2-7 days) friend Chapo (name ?) came to visit and I spoke to him - he states pt started to decline last spring - prior to that she lived in a nice rental on [address] in [place] and worked at [employer], due to memory issues [facility] had to let her go but paif for her to have an extensive eval for memeory loss at [facility], due to job loss she was then evicted from her rental and [facility] at [facility] helped her find the apy she now lives in - we called Noah Curiel for results of evaluation done last spring but now it is Wednesday and medical records is closed MRi showed no acute processs I spoke to [facility] again - they cannot do a tele neuro eval for Jhoan - neuro rec this is an outpt work up and pt does not need transfer to see neuro per Tonya Chan admin has advised pt to be placed in obs on "admin days" while admitted pt should continue to receive high dose thiamine and hospitalist should fup on pending thiamine and folate results daughter Griselda from [place] called for an update, pt said i could speak to sister about results, sister was concerned pt had a AAA ( I reassured pt had a CT AP a month ago and no aneurysm seen), wanted to know MRI results and about discussion with neuro and I updated her that MRI showed no acute and tele neuro wasn't possible and neuro at [facility] recommended an ouptpt wup and not transfer , also i advised that pt apparently had an extensive wup already at [facility] and sister was unaware of this, I also said that at some point it may be necessary for a relative to be made Ms Shanae FITZPATRICK and Griselda says that would be her sister Vira in [place], states they are hoping we will place pt somewhere in [place] (I explained that it will likely be very diff for a hospital in [facility] to place a pt on the other side of the [facility] but that I will document their wishes), also Griselda states that their mother had very similar sx and was txed with aricept and promptly improved ( relayed this info to hospitalist by phone) Departure - Departure Disposition: ED Place in Observation Clinical Impression: Gravely disabled Condition: Stable Discharge Date/Time: 09/18/17 17:06
[2017-09-18] MEDS ORDERED: THIAMINE 100 MG TABLET PO SCH (09:00)
[2017-09-18] MEDS ORDERED: THIAMINE 100 MG TABLET PO ONE (09:30)
[2017-09-18] MEDS ORDERED: THIAMINE 100 MG/1 ML 2 ML MDV ONE ×2 (09:31→14:44)
[2017-09-18] MEDS: THIAMINE 100 MG/1 ML 2 ML MDV IM SCH ×3 (09:36→21:12)
--- NOTE | 2017-09-18 09:44 | XRAY Preliminary Report ---
Exam: XR HIPS 2V BILAT IMPRESSION: Normal pelvis and bilateral hip radiography for age. [facility] SITE ID: [id number]
--- NOTE | 2017-09-18 09:47 | XRAY Report ---
EXAM: PELVIS AND BILATERAL HIPS RADIOGRAPHY EXAM DATE: 09/18/2017 09:28 AM. CLINICAL HISTORY: Fell, ruth hip pain, diff ambulating. COMPARISON: CT abdomen pelvis 07/24/2017. TECHNIQUE: 1 view of the pelvis and 1 view of each hip. 3 images are provided. FINDINGS: Bones: Normal for age. No fracture or bone lesion. Joints: The bilateral hip, pubis symphysis, and sacroiliac joints are preserved. Soft Tissues: No significant abnormality. IMPRESSION: Normal pelvis and bilateral hip radiography for age. [facility] Referring Provider Line: [phone] SITE ID: [id number]
[2017-09-18 09:48] LABS: BILIRUBIN,URINE NEGATIVE (NEGATIVE); UA CHARGE (STRIP ONLY) YES; UR CULTURE IF IND NOT INDICATED
[2017-09-18] MEDS ORDERED: THIAMINE 100 MG/1 ML 2 ML MDV IM SCH (10:00)
--- NOTE | 2017-09-18 12:01 | MRI Report ---
EXAM: MRI BRAIN WITHOUT CONTRAST EXAM DATE: 09/18/2017 11:42 AM. CLINICAL HISTORY: Progressive memory loss and worsening weakness. Altered mental status. COMPARISON: CT scan of the head 09/08/2017. TECHNIQUE: Multiplanar, multisequence T1-weighted and fluid-sensitive MR sequences of the brain were performed. Sequences optimized for routine evaluation. Other: None. IV Contrast: None. FINDINGS: (Study is somewhat limited by motion artifact). Brain Volume: Mild age advanced volume loss is present. Parenchyma/Dura: No mass, acute infarct or hemorrhage. Mild confluent periventricular and scattered d eep and subcortical white matter T2 and FLAIR bright signal is seen in the cerebral hemispheres. Ventricles/Cisterns: No hydrocephalus. No abnormal extra-axial fluid collection or hemorrhage. Orbits: Symmetric and unremarkable. Sella Turc[place]: The pituitary gland, cavernous sinuses, suprasellar cistern and optic chiasm are unrem arkable. IAC: Symmetric and unremarkable. Vasculature: Normal signal flow void is seen. Sinuses: No acute appearing sinus disease. Bones: No focal pathologic appearing marrow signal changes. Other: None. IMPRESSION: (Study somewhat limited by motion artifact). 1. No acute intracranial abnormality. No acute infarct, mass, or hemorrhage. 2. Senescent change. Mild white matter T2/FLAIR bright signal is seen throughout the cerebral hemisph eres. This is nonspecific but typically secondary to small vessel ischemic change. Referring Provider Line: [phone] SITE ID: [id number]
[2017-09-18] MEDS ORDERED: CLARITHROMYCIN 500 MG TABLET PO SCH (12:10)
[2017-09-18] MEDS ORDERED: CLARITHROMYCIN 500 MG TABLET PO ONE (12:47)
[2017-09-18] MEDS ORDERED: PROCHLORPERAZINE 10 MG/2 ML VIAL IVP PRN (15:43)
[2017-09-18] MEDS ORDERED: ENOXAPARIN 40 MG/0.4 ML SYRINGE SUBQ SCH (18:00)
[2017-09-18] MEDS: ENOXAPARIN 40 MG/0.4 ML SYRINGE SUBQ SCH (19:20)
[2017-09-18] MEDS ORDERED: LORazepam 0.5 MG TABLET PO SCH (21:00)
[2017-09-18] MEDS ORDERED: SODIUM CHLORIDE FLUSH 0.9% 10 ML SYRINGE IVP ONE (21:04)
[2017-09-18] MEDS: CLARITHROMYCIN 500 MG TABLET PO SCH (21:12)
[2017-09-18] MEDS: DONEPEZIL 5 MG TABLET PO SCH (21:12)
--- NOTE | 2017-09-18 22:25 | HISTORY & PHYSICAL EXAMINATION ---
DATE OF ADMISSION: 09/17/2017 HISTORY OF PRESENT ILLNESS: This is a 67-year-old white female with history of alcohol abuse, celiac disease, who has had a rapid worsening of mental status due to severe dementia recently, which began over the last 1 year. She had workup for this at an outlying hospital. The results of these are not known. She has not been started on any Aricept or other medications for dementia. The patient was noted to be found wandering around her neighborhood, called 911 to be let into her own house, forgot what she was eating, where she was, and was brought here for a welfare check and has been deemed to have the need for assisted nursing care for ADLs because of severe disability from dementia. She has been in the emergency room for 72 hours in attempt for social workers to find her permanent jail placement and it has been unable to be achieved. Therefore, she is now being admitted under observation for further overall medical management while she has permanent placement arranged. She has been started on treatment for H. pylori and Thiamine high dose treatment, since being in the ER. MEDICATIONS: 1. Clarithromycin. 2. Metronidazole. 3. Omeprazole. 4. Phenergan (all started in our emergency room 3 days ago). ALLERGIES 1. PENICILLIN. 2. CODEINE. 3. ERYTHROMYCIN. SOCIAL HISTORY: The patient is a nonsmoker who never smoked, uses no illicit drugs, still does drink alcohol but of unknown quantity. REVIEW OF SYSTEMS: This was performed by evaluation of all records available to me, and the pertinent positives are stated in the HPI and past medical history. PHYSICAL EXAMINATION GENERAL: An elderly white female in no distress in bed with head of bed elevated and eating. VITAL SIGNS: Blood pressure 150/80. Heart rate is in the 60s-100s in sinus rhythm. She is afebrile. HEENT: Unremarkable. Her mucosa is moist. NECK: No JVD in a vertical position. Neck is supple. CHEST: Clear at the anterior bases. HEART: Sounds are normal. No audible murmurs. There is no heave or gallop. ABDOMEN: Soft. Positive bowel sounds. EXTREMITIES: No clubbing, cyanosis, or edema. NEUROLOGIC: As described in the HPI. LABORATORY DATA: Sodium 135, potassium 3.4 (from 3 days ago), BUN 15, creatinine 0.8. INR normal. CBC: 13.5, normal hemoglobin and platelet count ( from 3 days ago). IMPRESSION 1. Dementia with marked disability from this. 2. History of celiac disease. 3. History of Helicobacter pylori on treatment. 4. History of alcohol abuse. PLAN: Continue the thiamine at high doses as was recommended from a Neurology phone recommendation with our emergency room physician. Continue with H pylori treatment. Begin Aricept empirically. Determine the patient's code status if family members become available. The patient is to be admitted under administrative days for safe placement. JOB #: [id number] EXT JOB #:[id number] MTDAnnamaria
[2017-09-19] MEDS: THIAMINE 100 MG/1 ML 2 ML MDV IM SCH ×3 (06:36→21:26)
[2017-09-19] MEDS: metroNIDAZOLE 250 MG TABLET PO SCH ×3 (06:39→21:26)
[2017-09-19] MEDS: CLARITHROMYCIN 500 MG TABLET PO SCH ×2 (08:14→21:26)
[2017-09-19] MEDS: POLYETHYLENE GLYCOL 3350 17 GM PACKET PO SCH (08:14)
[2017-09-19] MEDS: ENOXAPARIN 40 MG/0.4 ML SYRINGE SUBQ SCH (19:14)
[2017-09-19] MEDS: DONEPEZIL 5 MG TABLET PO SCH (21:26)
--- NOTE | 2017-09-19 22:12 | PROVIDER PROGRESS NOTE ---
Assessment/Plan - Problem List (1) Dementia Qualifiers: Alzheimer's disease onset: unspecified onset Assessment/Plan: Aricept was started empirically yesterday. High dose thiamine being administered. No improvement in mentation seen yet. (2) H. pylori infection Assessment/Plan: On treatment. - Current Meds Current Meds: Current Medications Generic Name Dose Route Start Last Admin Trade Name Freq PRN Reason Stop Dose Admin Clarithromycin 500 mg 09/18/17 21:00 09/19/17 21:26 Biaxin PO 500 mg BID NAYELI Administration Donepezil HCl 5 mg 09/18/17 21:00 09/19/17 21:26 Aricept PO 5 mg QPM NAYELI Administration Enoxaparin Sodium 40 mg 09/18/17 18:00 09/19/17 19:14 Lovenox SUBQ 40 mg Q24H NAYELI Administration Metronidazole 500 mg 09/18/17 22:00 09/19/17 21:26 Flagyl PO 500 mg TID NAYELI Administration Polyethylene Glycol 17 gm 09/19/17 09:00 09/19/17 08:14 Miralax PO Not Given DAILY NAYELI Thiamine HCl 200 mg 09/18/17 22:00 09/19/17 21:26 Vitamin B-1 Inj IM 09/20/17 22:01 200 mg TID NAYELI Administration - Lab Result Fish Bone Diagrams: 09/15/17 15:00 09/15/17 15:00 - Additional Planning My Orders: My Active Orders 09/18/17 22:00 Thiamine Inj [Vitamin B-1 Inj] 200 mg IM TID metroNIDAZOLE [Flagyl] 500 mg PO TID 09/19/17 09:00 Polyethylene Glycol 3350 [Miralax] 17 gm PO DAILY Subjective - Subjective Patient Reports: No Complaints Nursing Reports: Confused Objective Vital Signs: Vital Signs - 24 hr 09/18/17 09/19/17 09/19/17 23:55 05:51 07:46 Temperature 36.9 C 36.7 C 36.6 C Heart Rate [ 98 95 95 Brachial] Respiratory 16 16 Rate Blood Pressure 132/63 H 132/83 H 133/77 H [Right Brachial artery] O2 Saturation 98 98 100 09/19/17 16:04 Temperature 36.4 C L Heart Rate [ 103 H Brachial] Respiratory 16 Rate Blood Pressure 151/97 H [Right Brachial artery] O2 Saturation 97 Oxygen O2 Source Room air I&O (Last 24 Hrs): Intake and Output Totals x24h 09/17/17 09/18/17 09/19/17 23:59 23:59 23:59 Intake Total 858 983 4021 Output Total 100 Balance 594 420 1736 General: No acute distress HEENT: Mucous membr. moist/pink Neck: Supple Cardiovascular: Regular rate Respiratory: No respiratory distress Extremities: No edema - Results Results: Laboratory Results WBC 13.5 x10^3/uL (4.8-10.8) H 09/15/17 15:00 RBC 4.80 10^6/uL (4.20-5.40) 09/15/17 15:00 Hgb 15.0 g/dL (12.0-16.0) 09/15/17 15:00 Hct 44.5 % (37.0-47.0) 09/15/17 15:00 MCV 92.6 fL (81.0-99.0) 09/15/17 15:00 MCH 31.3 pg (27.0-31.0) H 09/15/17 15:00 MCHC 33.8 g/dL (32.0-36.0) 09/15/17 15:00 RDW 13.5 % (12.0-15.0) 09/15/17 15:00 Plt Count 294 10^3/uL (130-450) 09/15/17 15:00 MPV 7.3 fL (7.9-10.8) L 09/15/17 15:00 Neut # 10.8 10^3/uL (1.5-6.6) H 09/15/17 15:00 Lymph # 1.4 10^3/uL (1.5-3.5) L 09/15/17 15:00 Ashley # 1.2 10^3/uL (0.0-1.0) H 09/15/17 15:00 Eos # 0.1 10^3/uL (0.0-0.7) 09/15/17 15:00 Baso # 0.0 10^3/uL (0.0-0.1) 09/15/17 15:00 Absolute Nucleated RBC 0.01 x10^3/uL 09/15/17 15:00 Nucleated RBC % 0.0 /100WBC 09/15/17 15:00 PT 11.6 secs (9.9-12.6) 09/15/17 15:00 INR 1.0 (0.8-1.2) 09/15/17 15:00 Sodium 135 mmol/L (135-145) 09/15/17 15:00 Potassium 3.4 mmol/L (3.5-5.0) L 09/15/17 15:00 Chloride 93 mmol/L (101-111) L 09/15/17 15:00 Carbon Dioxide 27 mmol/L (21-32) 09/15/17 15:00 Anion Gap 15.0 (6-13) H 09/15/17 15:00 BUN 15 mg/dL (6-20) 09/15/17 15:00 Creatinine 0.8 mg/dL (0.4-1.0) 09/15/17 15:00 Estimated GFR (MDRD) 71 (>89) L 09/15/17 15:00 Glucose 143 mg/dL (70-100) H 09/15/17 15:00 Calcium 9.8 mg/dL (8.5-10.3) 09/15/17 15:00 Magnesium 1.9 mg/dL (1.7-2.8) 09/15/17 15:00 Total Bilirubin 1.3 mg/dL (0.2-1.0) H 09/15/17 15:00 AST 24 IU/L (10-42) 09/15/17 15:00 ALT 17 IU/L (10-60) 09/15/17 15:00 Alkaline Phosphatase 72 IU/L (42-121) 09/15/17 15:00 Ammonia 9.0 umol/L (7-35) 09/15/17 15:00 Total Creatine Kinase 18 IU/L (22-269) L 09/15/17 15:00 Troponin I < 0.04 ng/mL (<0.49) 09/15/17 15:00 Total Protein 7.2 g/dL (6.7-8.2) 09/15/17 15:00 Albumin 3.9 g/dL (3.2-5.5) 09/15/17 15:00 Globulin 3.3 g/dL (2.1-4.2) 09/15/17 15:00 Albumin/Globulin Ratio 1.2 (1.0-2.2) 09/15/17 15:00 Lipase 28 U/L (22-51) 09/15/17 15:00 Folate 3.20 ng/mL (5.90 - >24.8) L 09/18/17 09:50 TSH 1.91 uIU/mL (0.34-5.60) 09/15/17 15:00 Urine Color YELLOW 09/18/17 09:39 Urine Clarity CLEAR (CLEAR) 09/18/17 09:39 Urine pH 6.0 PH (5.0-7.5) 09/18/17 09:39 Ur Specific [place] 1.020 (1.002-1.030) 09/18/17 09:39 Urine Protein NEGATIVE mg/dL (NEGATIVE) 09/18/17 09:39 Urine Glucose (UA) NEGATIVE mg/dL (NEGATIVE) 09/18/17 09:39 Urine Ketones NEGATIVE mg/dL (NEGATIVE) 09/18/17 09:39 Urine Occult Blood NEGATIVE (NEGATIVE) 09/18/17 09:39 Urine Nitrite NEGATIVE (NEGATIVE) 09/18/17 09:39 Urine Bilirubin NEGATIVE (NEGATIVE) 09/18/17 09:39 Urine Urobilinogen 2 E.U./dL (NORMAL) H 09/18/17 09:39 Ur Leukocyte Esterase NEGATIVE (NEGATIVE) 09/18/17 09:39 Urine RBC 0-5 /HPF (0-5) 09/15/17 16:00 Urine WBC 4-5 /HPF (0-5) 09/15/17 16:00 Ur Squamous Epith Cells MOD Squamous (<= Few) H 09/15/17 16:00 Urine Bacteria Few /HPF (None Seen) 09/15/17 16:00 Urine Mucus Few Strands 09/15/17 16:00 Ur Microscopic Review NOT INDICATED 09/18/17 09:39 Urine Culture Comments NOT INDICATED 09/18/17 09:39 Salicylates < 6.0 mg/dL 09/15/17 15:00 Urine Opiates Screen NEGATIVE (NEGATIVE) 09/15/17 16:00 Ur Oxycodone Screen NEGATIVE (NEGATIVE) 09/15/17 16:00 Urine Methadone Screen NEGATIVE (NEGATIVE) 09/15/17 16:00 Ur Propoxyphene Screen NEGATIVE (NEGATIVE) 09/15/17 16:00 Acetaminophen < 10 ug/mL (10-30) L 09/15/17 15:00 Ur Barbiturates Screen NEGATIVE (NEGATIVE) 09/15/17 16:00 Ur Tricyclics Screen NEGATIVE (NEGATIVE) 09/15/17 16:00 Ur Phencyclidine Scrn NEGATIVE (NEGATIVE) 09/15/17 16:00 Ur Amphetamine Screen NEGATIVE (NEGATIVE) 09/15/17 16:00 U Methamphetamines Scrn NEGATIVE (NEGATIVE) 09/15/17 16:00 U Benzodiazepines Scrn NEGATIVE (NEGATIVE) 09/15/17 16:00 Urine Cocaine Screen NEGATIVE (NEGATIVE) 09/15/17 16:00 U Cannabinoids Screen NEGATIVE (NEGATIVE) 09/15/17 16:00 Ethyl Alcohol < 5.0 mg/dL 09/15/17 15:00 - Procedures Procedures: Procedures ESOPHAGOGASTRODUODENOSCOPY [EGD] W/CLOSED BIOPSY (02/12/14) EXCISION OF STOMACH, ENDO, DIAGN (08/26/17)
[2017-09-20] MEDS: metroNIDAZOLE 250 MG TABLET PO SCH ×3 (06:29→21:06)
[2017-09-20] MEDS: THIAMINE 100 MG/1 ML 2 ML MDV IM SCH ×3 (06:29→21:06)
[2017-09-20] MEDS: CLARITHROMYCIN 500 MG TABLET PO SCH ×2 (09:22→21:06)
[2017-09-20] MEDS: POLYETHYLENE GLYCOL 3350 17 GM PACKET PO SCH (09:22)
--- NOTE | 2017-09-20 18:53 | PROVIDER PROGRESS NOTE ---
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 She does not understand her diagnoses. She is unaware of where she is. She does not have capacity to make safe decisions regarding her healthcare. I spoke to daughter Brittani Ortiz who stated that she "needed a while to process the information" after she was reached by our [employer] and after my conversation with her. I also spoke to her sister, Aline Ortiz, who would be willing to be POA and wishes that the Pt be placed near [place], [place]. Continue Thiamine and Aricept. (2) H. pylori infection Assessment/Plan: Continue treatment - Current Meds Current Meds: Current Medications Generic Name Dose Route Start Last Admin Trade Name Freq PRN Reason Stop Dose Admin Clarithromycin 500 mg 09/18/17 21:00 09/20/17 09:22 Biaxin PO 500 mg BID NAYELI Administration Donepezil HCl 5 mg 09/18/17 21:00 09/19/17 21:26 Aricept PO 5 mg QPM NAYEIL Administration Enoxaparin Sodium 40 mg 09/18/17 18:00 09/19/17 19:14 Lovenox SUBQ 40 mg Q24H NAYELI Administration Metronidazole 500 mg 09/18/17 22:00 09/20/17 14:29 Flagyl PO 500 mg TID NAYELI Administration Polyethylene Glycol 17 gm 09/19/17 09:00 09/20/17 09:22 Miralax PO Not Given DAILY NAYELI Thiamine HCl 200 mg 09/18/17 22:00 09/20/17 14:29 Vitamin B-1 Inj IM 09/20/17 22:01 200 mg TID NAYELI Administration - Lab Result Fish Bone Diagrams: 09/15/17 15:00 09/15/17 15:00 Subjective - Subjective Patient Reports: No Complaints Nursing Reports: No Complaints Objective Vital Signs: Vital Signs - 24 hr 09/20/17 09/20/17 09/20/17 00:00 07:01 07:48 Temperature 36.8 C 36.8 C 36.8 C Heart Rate [ 107 H 90 89 Brachial] Respiratory 16 18 18 Rate Blood Pressure 129/52 L 136/67 H 131/67 H [Right Brachial artery] O2 Saturation 95 97 97 09/20/17 09/20/17 14:13 16:10 Temperature 36.7 C 36.6 C Heart Rate [ 105 H 99 Brachial] Respiratory 19 18 Rate Blood Pressure 135/66 H 134/62 H [Right Brachial artery] O2 Saturation 99 100 Oxygen O2 Source Room air I&O (Last 24 Hrs): Intake and Output Totals x24h 09/18/17 09/19/17 09/20/17 23:59 23:59 23:59 Intake Total 240 1380 1040 Output Total 100 Balance 240 1280 1040 General: Other (Disoriented) HEENT: Mucous membr. moist/pink Neck: Supple Cardiovascular: No murmurs Respiratory: No respiratory distress Extremities: No edema - Results Results: Laboratory Results WBC 13.5 x10^3/uL (4.8-10.8) H 09/15/17 15:00 RBC 4.80 10^6/uL (4.20-5.40) 09/15/17 15:00 Hgb 15.0 g/dL (12.0-16.0) 09/15/17 15:00 Hct 44.5 % (37.0-47.0) 09/15/17 15:00 MCV 92.6 fL (81.0-99.0) 09/15/17 15:00 MCH 31.3 pg (27.0-31.0) H 09/15/17 15:00 MCHC 33.8 g/dL (32.0-36.0) 09/15/17 15:00 RDW 13.5 % (12.0-15.0) 09/15/17 15:00 Plt Count 294 10^3/uL (130-450) 09/15/17 15:00 MPV 7.3 fL (7.9-10.8) L 09/15/17 15:00 Neut # 10.8 10^3/uL (1.5-6.6) H 09/15/17 15:00 Lymph # 1.4 10^3/uL (1.5-3.5) L 09/15/17 15:00 [place] # 1.2 10^3/uL (0.0-1.0) H 09/15/17 15:00 Eos # 0.1 10^3/uL (0.0-0.7) 09/15/17 15:00 Baso # 0.0 10^3/uL (0.0-0.1) 09/15/17 15:00 Absolute Nucleated RBC 0.01 x10^3/uL 09/15/17 15:00 Nucleated RBC % 0.0 /100WBC 09/15/17 15:00 PT 11.6 secs (9.9-12.6) 09/15/17 15:00 INR 1.0 (0.8-1.2) 09/15/17 15:00 Sodium 135 mmol/L (135-145) 09/15/17 15:00 Potassium 3.4 mmol/L (3.5-5.0) L 09/15/17 15:00 Chloride 93 mmol/L (101-111) L 09/15/17 15:00 Carbon Dioxide 27 mmol/L (21-32) 09/15/17 15:00 Anion Gap 15.0 (6-13) H 09/15/17 15:00 BUN 15 mg/dL (6-20) 09/15/17 15:00 Creatinine 0.8 mg/dL (0.4-1.0) 09/15/17 15:00 Estimated GFR (MDRD) 71 (>89) L 09/15/17 15:00 Glucose 143 mg/dL (70-100) H 09/15/17 15:00 Calcium 9.8 mg/dL (8.5-10.3) 09/15/17 15:00 Magnesium 1.9 mg/dL (1.7-2.8) 09/15/17 15:00 Total Bilirubin 1.3 mg/dL (0.2-1.0) H 09/15/17 15:00 AST 24 IU/L (10-42) 09/15/17 15:00 ALT 17 IU/L (10-60) 09/15/17 15:00 Alkaline Phosphatase 72 IU/L (42-121) 09/15/17 15:00 Ammonia 9.0 umol/L (7-35) 09/15/17 15:00 Total Creatine Kinase 18 IU/L (22-269) L 09/15/17 15:00 Troponin I < 0.04 ng/mL (<0.49) 09/15/17 15:00 Total Protein 7.2 g/dL (6.7-8.2) 09/15/17 15:00 Albumin 3.9 g/dL (3.2-5.5) 09/15/17 15:00 Globulin 3.3 g/dL (2.1-4.2) 09/15/17 15:00 Albumin/Globulin Ratio 1.2 (1.0-2.2) 09/15/17 15:00 Lipase 28 U/L (22-51) 09/15/17 15:00 Folate 3.20 ng/mL (5.90 - >24.8) L 09/18/17 09:50 TSH 1.91 uIU/mL (0.34-5.60) 09/15/17 15:00 Urine Color YELLOW 09/18/17 09:39 Urine Clarity CLEAR (CLEAR) 09/18/17 09:39 Urine pH 6.0 PH (5.0-7.5) 09/18/17 09:39 Ur Specific [place] 1.020 (1.002-1.030) 09/18/17 09:39 Urine Protein NEGATIVE mg/dL (NEGATIVE) 09/18/17 09:39 Urine Glucose (UA) NEGATIVE mg/dL (NEGATIVE) 09/18/17 09:39 Urine Ketones NEGATIVE mg/dL (NEGATIVE) 09/18/17 09:39 Urine Occult Blood NEGATIVE (NEGATIVE) 09/18/17 09:39 Urine Nitrite NEGATIVE (NEGATIVE) 09/18/17 09:39 Urine Bilirubin NEGATIVE (NEGATIVE) 09/18/17 09:39 Urine Urobilinogen 2 E.U./dL (NORMAL) H 09/18/17 09:39 Ur Leukocyte Esterase NEGATIVE (NEGATIVE) 09/18/17 09:39 Urine RBC 0-5 /HPF (0-5) 09/15/17 16:00 Urine WBC 4-5 /HPF (0-5) 09/15/17 16:00 Ur Squamous Epith Cells MOD Squamous (<= Few) H 09/15/17 16:00 Urine Bacteria Few /HPF (None Seen) 09/15/17 16:00 Urine Mucus Few Strands 09/15/17 16:00 Ur Microscopic Review NOT INDICATED 09/18/17 09:39 Urine Culture Comments NOT INDICATED 09/18/17 09:39 Salicylates < 6.0 mg/dL 09/15/17 15:00 Urine Opiates Screen NEGATIVE (NEGATIVE) 09/15/17 16:00 Ur Oxycodone Screen NEGATIVE (NEGATIVE) 09/15/17 16:00 Urine Methadone Screen NEGATIVE (NEGATIVE) 09/15/17 16:00 Ur Propoxyphene Screen NEGATIVE (NEGATIVE) 09/15/17 16:00 Acetaminophen < 10 ug/mL (10-30) L 09/15/17 15:00 Ur Barbiturates Screen NEGATIVE (NEGATIVE) 09/15/17 16:00 Ur Tricyclics Screen NEGATIVE (NEGATIVE) 09/15/17 16:00 Ur Phencyclidine Scrn NEGATIVE (NEGATIVE) 09/15/17 16:00 Ur Amphetamine Screen NEGATIVE (NEGATIVE) 09/15/17 16:00 U Methamphetamines Scrn NEGATIVE (NEGATIVE) 09/15/17 16:00 U Benzodiazepines Scrn NEGATIVE (NEGATIVE) 09/15/17 16:00 Urine Cocaine Screen NEGATIVE (NEGATIVE) 09/15/17 16:00 U Cannabinoids Screen NEGATIVE (NEGATIVE) 09/15/17 16:00 Ethyl Alcohol < 5.0 mg/dL 09/15/17 15:00 - Procedures Procedures: Procedures ESOPHAGOGASTRODUODENOSCOPY [EGD] W/CLOSED BIOPSY (02/12/14) EXCISION OF STOMACH, ENDO, DIAGN (08/26/17)
[2017-09-20] MEDS: DONEPEZIL 5 MG TABLET PO SCH (21:06)
[2017-09-20] MEDS: ENOXAPARIN 40 MG/0.4 ML SYRINGE SUBQ SCH (21:06)
[2017-09-21] MEDS ORDERED: HYDROcod/ACET 5/325 Prepack 6 PO ONE (04:00)
[2017-09-21] MEDS ORDERED: CYCLOBENZAPRINE 10 MG Prepack 2 PO ONE (04:01)
[2017-09-21] MEDS: metroNIDAZOLE 250 MG TABLET PO SCH ×3 (06:40→21:03)
[2017-09-21] MEDS: POLYETHYLENE GLYCOL 3350 17 GM PACKET PO SCH (08:44)
[2017-09-21] MEDS: CLARITHROMYCIN 500 MG TABLET PO SCH ×2 (08:44→21:04)
[2017-09-21] MEDS ORDERED: HALOPERIDOL 5 MG/ML VIAL IM SCH (12:30)
[2017-09-21] MEDS: FOLIC ACID 1 MG TABLET PO SCH (15:13)
--- NOTE | 2017-09-21 17:24 | PROVIDER PROGRESS NOTE ---
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 She does not understand her diagnoses. She is unaware of where she is. She does not have capacity to make safe decisions regarding her healthcare. I spoke to daughter Brittani Ortiz who stated that she did not want her aunt to be the DPOA and would like to make decisions for the patient. Social work will contact the Brittani today to discuss this further. The patient refused to be seen for assessment by [facility]. Social work spoke with patients daughter who agrees to serve as medical POA for pt. Daughter resides in [place] and would prefer placement closer to [place], NOEMI stated would start search in that area, explained that placement location cannot be guaranteed. NOEMI explained that [facility] would pay for room, board , and care and pt would not have money remaining to pay for current rent/ utilities. Daughter inquired as to why she wasn't called about pt until yesterday, NOEMI explained that she was not listed in contact information and that pt sister had to provide information. NOEMI received call from Cher at [facility] ([phone]), provided update of [facility] assessment and discussions with pt daughter, including daughter willingness to serve as POA. Cher states she will discuss guardianship with daughter. Continue Thiamine and Aricept. Start Folic acid (2) H. pylori infection Assessment/Plan: Continue treatment Stable - Current Meds Current Meds: Current Medications Generic Name Dose Route Start Last Admin Trade Name Freq PRN Reason Stop Dose Admin Clarithromycin 500 mg 09/18/17 21:00 09/21/17 08:44 Biaxin PO 500 mg BID NAYELI Administration Donepezil HCl 5 mg 09/18/17 21:00 09/20/17 21:06 Aricept PO 5 mg QPM NAYELI Administration Enoxaparin Sodium 40 mg 09/18/17 18:00 09/20/17 21:06 Lovenox SUBQ 40 mg Q24H NAYELI Administration Folic Acid 1 mg 09/21/17 14:00 09/21/17 15:13 PO 1 mg DAILY NAYELI Administration Metronidazole 500 mg 09/18/17 22:00 09/21/17 15:13 Flagyl PO 500 mg TID NAYELI Administration Polyethylene Glycol 17 gm 09/19/17 09:00 09/21/17 08:44 Miralax PO Not Given DAILY NAYELI - Lab Result Lab results reviewed: Yes Fish Bone Diagrams: 09/15/17 15:00 09/15/17 15:00 - Diagnostic Imaging Results Diagnostic Imaging Results: Final report reviewed - Additional Planning Condition/Complexity: Guarded My Orders: My Active Orders 09/21/17 14:00 Folic Acid 1 mg PO DAILY 09/21/17 15:30 LORazepam [Ativan] 1 mg PO Q6H PRN Zolpidem [Ambien] 5 mg PO QPM PRN Consult/Specialty: Other (Social Work) Plan Discussed with:: Patient, Family Time Spent: 31-60 minutes Subjective - Subjective Patient Reports: Other (Patient is still very confused. Does not know why she is in the hospital. She wants to go home. She thinks she lives in [place]. She denies any complaints at this time.) Nursing Reports: Confused Objective Vital Signs: Vital Signs - 24 hr 09/20/17 09/20/17 09/21/17 20:15 23:49 05:00 Temperature 36.9 C 36.6 C 36.9 C Heart Rate [ 97 98 101 H Brachial] Respiratory 18 16 16 Rate Blood Pressure 137/71 H 134/79 H 139/83 H [Right Brachial artery] O2 Saturation 99 98 96 09/21/17 09/21/17 07:52 12:00 Temperature 36.5 C 36.3 C L Heart Rate [ 109 H 103 H Brachial] Respiratory 18 19 Rate Blood Pressure 153/73 H 135/55 H [Right Brachial artery] O2 Saturation 99 100 Oxygen O2 Source Room air I&O (Last 24 Hrs): Intake and Output Totals x24h 09/19/17 09/20/17 09/21/17 23:59 23:59 23:59 Intake Total 1380 1800 1640 Output Total 100 Balance 1280 1800 1640 General: Alert, Other (Not cooperative, oriented x1) HEENT: Atraumatic, PERRLA, EOMI, Mucous membr. moist/pink Neck: Supple, No JVD, No thyromegaly, +2 carotid pulse wo bruit, No LAD Lymphatic: no adenopathy Neuro: Alert, Disoriented, Non Focal, CN 2-12 Grossly Intact Cardiovascular: Regular rate, Normal S1, Normal S2, No murmurs Respiratory: Chest non-tender, No respiratory distress, Breath sounds nml Abdomen: Normal bowel sounds, Soft, No tenderness, No hepatospenomegaly Extremities: No clubbing, No cyanosis, No edema, Normal pulses Skin: No rashes, No breakdown, No significant lesion - Results Results: Laboratory Results WBC 13.5 x10^3/uL (4.8-10.8) H 09/15/17 15:00 RBC 4.80 10^6/uL (4.20-5.40) 09/15/17 15:00 Hgb 15.0 g/dL (12.0-16.0) 09/15/17 15:00 Hct 44.5 % (37.0-47.0) 09/15/17 15:00 MCV 92.6 fL (81.0-99.0) 09/15/17 15:00 MCH 31.3 pg (27.0-31.0) H 09/15/17 15:00 MCHC 33.8 g/dL (32.0-36.0) 09/15/17 15:00 RDW 13.5 % (12.0-15.0) 09/15/17 15:00 Plt Count 294 10^3/uL (130-450) 09/15/17 15:00 MPV 7.3 fL (7.9-10.8) L 09/15/17 15:00 Neut # 10.8 10^3/uL (1.5-6.6) H 09/15/17 15:00 Lymph # 1.4 10^3/uL (1.5-3.5) L 09/15/17 15:00 [place] # 1.2 10^3/uL (0.0-1.0) H 09/15/17 15:00 Eos # 0.1 10^3/uL (0.0-0.7) 09/15/17 15:00 Baso # 0.0 10^3/uL (0.0-0.1) 09/15/17 15:00 Absolute Nucleated RBC 0.01 x10^3/uL 09/15/17 15:00 Nucleated RBC % 0.0 /100WBC 09/15/17 15:00 PT 11.6 secs (9.9-12.6) 09/15/17 15:00 INR 1.0 (0.8-1.2) 09/15/17 15:00 Sodium 135 mmol/L (135-145) 09/15/17 15:00 Potassium 3.4 mmol/L (3.5-5.0) L 09/15/17 15:00 Chloride 93 mmol/L (101-111) L 09/15/17 15:00 Carbon Dioxide 27 mmol/L (21-32) 09/15/17 15:00 Anion Gap 15.0 (6-13) H 09/15/17 15:00 BUN 15 mg/dL (6-20) 09/15/17 15:00 Creatinine 0.8 mg/dL (0.4-1.0) 09/15/17 15:00 Estimated GFR (MDRD) 71 (>89) L 09/15/17 15:00 Glucose 143 mg/dL (70-100) H 09/15/17 15:00 Calcium 9.8 mg/dL (8.5-10.3) 09/15/17 15:00 Magnesium 1.9 mg/dL (1.7-2.8) 09/15/17 15:00 Total Bilirubin 1.3 mg/dL (0.2-1.0) H 09/15/17 15:00 AST 24 IU/L (10-42) 09/15/17 15:00 ALT 17 IU/L (10-60) 09/15/17 15:00 Alkaline Phosphatase 72 IU/L (42-121) 09/15/17 15:00 Ammonia 9.0 umol/L (7-35) 09/15/17 15:00 Total Creatine Kinase 18 IU/L (22-269) L 09/15/17 15:00 Troponin I < 0.04 ng/mL (<0.49) 09/15/17 15:00 Total Protein 7.2 g/dL (6.7-8.2) 09/15/17 15:00 Albumin 3.9 g/dL (3.2-5.5) 09/15/17 15:00 Globulin 3.3 g/dL (2.1-4.2) 09/15/17 15:00 Albumin/Globulin Ratio 1.2 (1.0-2.2) 09/15/17 15:00 Lipase 28 U/L (22-51) 09/15/17 15:00 Folate 3.20 ng/mL (5.90 - >24.8) L 09/18/17 09:50 TSH 1.91 uIU/mL (0.34-5.60) 09/15/17 15:00 Urine Color YELLOW 09/18/17 09:39 Urine Clarity CLEAR (CLEAR) 09/18/17 09:39 Urine pH 6.0 PH (5.0-7.5) 09/18/17 09:39 Ur Specific [place] 1.020 (1.002-1.030) 09/18/17 09:39 Urine Protein NEGATIVE mg/dL (NEGATIVE) 09/18/17 09:39 Urine Glucose (UA) NEGATIVE mg/dL (NEGATIVE) 09/18/17 09:39 Urine Ketones NEGATIVE mg/dL (NEGATIVE) 09/18/17 09:39 Urine Occult Blood NEGATIVE (NEGATIVE) 09/18/17 09:39 Urine Nitrite NEGATIVE (NEGATIVE) 09/18/17 09:39 Urine Bilirubin NEGATIVE (NEGATIVE) 09/18/17 09:39 Urine Urobilinogen 2 E.U./dL (NORMAL) H 09/18/17 09:39 Ur Leukocyte Esterase NEGATIVE (NEGATIVE) 09/18/17 09:39 Urine RBC 0-5 /HPF (0-5) 09/15/17 16:00 Urine WBC 4-5 /HPF (0-5) 09/15/17 16:00 Ur Squamous Epith Cells MOD Squamous (<= Few) H 09/15/17 16:00 Urine Bacteria Few /HPF (None Seen) 09/15/17 16:00 Urine Mucus Few Strands 09/15/17 16:00 Ur Microscopic Review NOT INDICATED 09/18/17 09:39 Urine Culture Comments NOT INDICATED 09/18/17 09:39 Salicylates < 6.0 mg/dL 09/15/17 15:00 Urine Opiates Screen NEGATIVE (NEGATIVE) 09/15/17 16:00 Ur Oxycodone Screen NEGATIVE (NEGATIVE) 09/15/17 16:00 Urine Methadone Screen NEGATIVE (NEGATIVE) 09/15/17 16:00 Ur Propoxyphene Screen NEGATIVE (NEGATIVE) 09/15/17 16:00 Acetaminophen < 10 ug/mL (10-30) L 09/15/17 15:00 Ur Barbiturates Screen NEGATIVE (NEGATIVE) 09/15/17 16:00 Ur Tricyclics Screen NEGATIVE (NEGATIVE) 09/15/17 16:00 Ur Phencyclidine Scrn NEGATIVE (NEGATIVE) 09/15/17 16:00 Ur Amphetamine Screen NEGATIVE (NEGATIVE) 09/15/17 16:00 U Methamphetamines Scrn NEGATIVE (NEGATIVE) 09/15/17 16:00 U Benzodiazepines Scrn NEGATIVE (NEGATIVE) 09/15/17 16:00 Urine Cocaine Screen NEGATIVE (NEGATIVE) 09/15/17 16:00 U Cannabinoids Screen NEGATIVE (NEGATIVE) 09/15/17 16:00 Ethyl Alcohol < 5.0 mg/dL 09/15/17 15:00 - Procedures Procedures: Procedures ESOPHAGOGASTRODUODENOSCOPY [EGD] W/CLOSED BIOPSY (02/12/14) EXCISION OF STOMACH, ENDO, DIAGN (08/26/17)
[2017-09-21] MEDS: ENOXAPARIN 40 MG/0.4 ML SYRINGE SUBQ SCH (18:57)
[2017-09-21] MEDS: LORazepam 0.5 MG TABLET PO PRN (21:04)
[2017-09-21] MEDS: DONEPEZIL 5 MG TABLET PO SCH (21:04)
[2017-09-22] MEDS: metroNIDAZOLE 250 MG TABLET PO SCH ×3 (06:03→22:43)
[2017-09-22] MEDS: METOPROLOL TARTRATE 25 MG TABLET PO SCH ×3 (08:37→20:09)
[2017-09-22] MEDS: POLYETHYLENE GLYCOL 3350 17 GM PACKET PO SCH (08:38)
[2017-09-22] MEDS: CLARITHROMYCIN 500 MG TABLET PO SCH ×2 (08:38→20:08)
[2017-09-22] MEDS: FOLIC ACID 1 MG TABLET PO SCH (08:38)
[2017-09-22] MEDS: LORazepam 0.5 MG TABLET PO PRN ×2 (13:53→20:09)
[2017-09-22] MEDS ORDERED: ACETAMINOPHEN 325 MG TABLET PO ONE (15:25)
[2017-09-22] MEDS ORDERED: IBUPROFEN 400 MG TABLET PO ONE (15:26)
--- NOTE | 2017-09-22 16:22 | PROVIDER PROGRESS NOTE ---
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 She does not understand her diagnoses. She is unaware of where she is. She does not have capacity to make safe decisions regarding her healthcare. I spoke to daughter Brittani Ortiz who stated that she did not want her aunt to be the DPOA and would like to make decisions for the patient. The patient refused to be seen for assessment by [facility]. Social work spoke with patients daughter who agrees to serve as medical POA for pt. Daughter resides in [place] and would prefer placement closer to [place], SW stated would start search in that area, explained that placement location cannot be guaranteed. SW explained that [facility] would pay for room, board , and care and pt would not have money remaining to pay for current rent/ utilities. Daughter inquired as to why she wasn't called about pt until yesterday, SW explained that she was not listed in contact information and that pt sister had to provide information. NOEMI received call from Cher at [facility] ([phone]), provided update of [facility] assessment and discussions with pt daughter, including daughter willingness to serve as POA. Cher states she will discuss guardianship with daughter. Patients daughter called again today and was upset that her mother was allowed to give her house keys to a male friend who was present with her in the ER. Continue Thiamine and Aricept. Start Folic acid (2) H. pylori infection Assessment/Plan: Continue treatment till Sep 24 to complete course Stable (3) Hypertension Assessment/Plan: Patient continues to have persistently elevated BP Start Metoprolol this morning Monitor Titrate metoprolol - Current Meds Current Meds: Current Medications Generic Name Dose Route Start Last Admin Trade Name Freq PRN Reason Stop Dose Admin Clarithromycin 500 mg 09/18/17 21:00 09/22/17 08:38 Biaxin PO 500 mg BID NAYELI Administration Donepezil HCl 5 mg 09/18/17 21:00 09/21/17 21:04 Aricept PO 5 mg QPM NAYELI Administration Enoxaparin Sodium 40 mg 09/18/17 18:00 09/21/17 18:57 Lovenox SUBQ 40 mg Q24H NAYELI Administration Folic Acid 1 mg 09/21/17 14:00 09/22/17 08:38 PO 1 mg DAILY NAYELI Administration Lorazepam 1 mg 09/21/17 15:30 09/22/17 13:53 Ativan PO 1 mg Q6H PRN Administration Anxiety Metoprolol Tartrate 25 mg 09/22/17 08:00 09/22/17 08:40 Lopressor PO Not Given BID NAYELI Metronidazole 500 mg 09/18/17 22:00 09/22/17 13:53 Flagyl PO 500 mg TID NAYELI Administration Polyethylene Glycol 17 gm 09/19/17 09:00 09/22/17 08:38 Miralax PO Not Given DAILY NAYELI - Lab Result Lab results reviewed: Yes Fish Bone Diagrams: 09/15/17 15:00 09/15/17 15:00 Other Lab Results: Laboratory Results WBC 13.5 x10^3/uL (4.8-10.8) H 09/15/17 15:00 RBC 4.80 10^6/uL (4.20-5.40) 09/15/17 15:00 Hgb 15.0 g/dL (12.0-16.0) 09/15/17 15:00 Hct 44.5 % (37.0-47.0) 09/15/17 15:00 MCV 92.6 fL (81.0-99.0) 09/15/17 15:00 MCH 31.3 pg (27.0-31.0) H 09/15/17 15:00 MCHC 33.8 g/dL (32.0-36.0) 09/15/17 15:00 RDW 13.5 % (12.0-15.0) 09/15/17 15:00 Plt Count 294 10^3/uL (130-450) 09/15/17 15:00 MPV 7.3 fL (7.9-10.8) L 09/15/17 15:00 Neut # 10.8 10^3/uL (1.5-6.6) H 09/15/17 15:00 Lymph # 1.4 10^3/uL (1.5-3.5) L 09/15/17 15:00 Meade # 1.2 10^3/uL (0.0-1.0) H 09/15/17 15:00 Eos # 0.1 10^3/uL (0.0-0.7) 09/15/17 15:00 Baso # 0.0 10^3/uL (0.0-0.1) 09/15/17 15:00 Absolute Nucleated RBC 0.01 x10^3/uL 09/15/17 15:00 Nucleated RBC % 0.0 /100WBC 09/15/17 15:00 PT 11.6 secs (9.9-12.6) 09/15/17 15:00 INR 1.0 (0.8-1.2) 09/15/17 15:00 Sodium 135 mmol/L (135-145) 09/15/17 15:00 Potassium 3.4 mmol/L (3.5-5.0) L 09/15/17 15:00 Chloride 93 mmol/L (101-111) L 09/15/17 15:00 Carbon Dioxide 27 mmol/L (21-32) 09/15/17 15:00 Anion Gap 15.0 (6-13) H 09/15/17 15:00 BUN 15 mg/dL (6-20) 09/15/17 15:00 Creatinine 0.8 mg/dL (0.4-1.0) 09/15/17 15:00 Estimated GFR (MDRD) 71 (>89) L 09/15/17 15:00 Glucose 143 mg/dL (70-100) H 09/15/17 15:00 Calcium 9.8 mg/dL (8.5-10.3) 09/15/17 15:00 Magnesium 1.9 mg/dL (1.7-2.8) 09/15/17 15:00 Total Bilirubin 1.3 mg/dL (0.2-1.0) H 09/15/17 15:00 AST 24 IU/L (10-42) 09/15/17 15:00 ALT 17 IU/L (10-60) 09/15/17 15:00 Alkaline Phosphatase 72 IU/L (42-121) 09/15/17 15:00 Ammonia 9.0 umol/L (7-35) 09/15/17 15:00 Total Creatine Kinase 18 IU/L (22-269) L 09/15/17 15:00 Troponin I < 0.04 ng/mL (<0.49) 09/15/17 15:00 Total Protein 7.2 g/dL (6.7-8.2) 09/15/17 15:00 Albumin 3.9 g/dL (3.2-5.5) 09/15/17 15:00 Globulin 3.3 g/dL (2.1-4.2) 09/15/17 15:00 Albumin/Globulin Ratio 1.2 (1.0-2.2) 09/15/17 15:00 Lipase 28 U/L (22-51) 09/15/17 15:00 Folate 3.20 ng/mL (5.90 - >24.8) L 09/18/17 09:50 TSH 1.91 uIU/mL (0.34-5.60) 09/15/17 15:00 Urine Color YELLOW 09/18/17 09:39 Urine Clarity CLEAR (CLEAR) 09/18/17 09:39 Urine pH 6.0 PH (5.0-7.5) 09/18/17 09:39 Ur Specific [place] 1.020 (1.002-1.030) 09/18/17 09:39 Urine Protein NEGATIVE mg/dL (NEGATIVE) 09/18/17 09:39 Urine Glucose (UA) NEGATIVE mg/dL (NEGATIVE) 09/18/17 09:39 Urine Ketones NEGATIVE mg/dL (NEGATIVE) 09/18/17 09:39 Urine Occult Blood NEGATIVE (NEGATIVE) 09/18/17 09:39 Urine Nitrite NEGATIVE (NEGATIVE) 09/18/17 09:39 Urine Bilirubin NEGATIVE (NEGATIVE) 09/18/17 09:39 Urine Urobilinogen 2 E.U./dL (NORMAL) H 09/18/17 09:39 Ur Leukocyte Esterase NEGATIVE (NEGATIVE) 09/18/17 09:39 Urine RBC 0-5 /HPF (0-5) 09/15/17 16:00 Urine WBC 4-5 /HPF (0-5) 09/15/17 16:00 Ur Squamous Epith Cells MOD Squamous (<= Few) H 09/15/17 16:00 Urine Bacteria Few /HPF (None Seen) 09/15/17 16:00 Urine Mucus Few Strands 09/15/17 16:00 Ur Microscopic Review NOT INDICATED 09/18/17 09:39 Urine Culture Comments NOT INDICATED 09/18/17 09:39 Salicylates < 6.0 mg/dL 09/15/17 15:00 Urine Opiates Screen NEGATIVE (NEGATIVE) 09/15/17 16:00 Ur Oxycodone Screen NEGATIVE (NEGATIVE) 09/15/17 16:00 Urine Methadone Screen NEGATIVE (NEGATIVE) 09/15/17 16:00 Ur Propoxyphene Screen NEGATIVE (NEGATIVE) 09/15/17 16:00 Acetaminophen < 10 ug/mL (10-30) L 09/15/17 15:00 Ur Barbiturates Screen NEGATIVE (NEGATIVE) 09/15/17 16:00 Ur Tricyclics Screen NEGATIVE (NEGATIVE) 09/15/17 16:00 Ur Phencyclidine Scrn NEGATIVE (NEGATIVE) 09/15/17 16:00 Ur Amphetamine Screen NEGATIVE (NEGATIVE) 09/15/17 16:00 U Methamphetamines Scrn NEGATIVE (NEGATIVE) 09/15/17 16:00 U Benzodiazepines Scrn NEGATIVE (NEGATIVE) 09/15/17 16:00 Urine Cocaine Screen NEGATIVE (NEGATIVE) 09/15/17 16:00 U Cannabinoids Screen NEGATIVE (NEGATIVE) 09/15/17 16:00 Ethyl Alcohol < 5.0 mg/dL 09/15/17 15:00 - Diagnostic Imaging Results Diagnostic Imaging Results: Final report reviewed - Additional Planning Condition/Complexity: Guarded My Orders: My Active Orders 09/21/17 15:30 LORazepam [Ativan] 1 mg PO Q6H PRN Zolpidem [Ambien] 5 mg PO QPM PRN 09/22/17 08:00 Metoprolol Tartrate [Lopressor] 25 mg PO BID 09/22/17 Breakfast Regular Diet [DIET] Consult/Specialty: Other (Social Work) Plan Discussed with:: Patient, Family Time Spent: 31-60 minutes Subjective - Subjective Patient Reports: Resting Comfortably, Other (Patient still confused, she does not know where she is or why she is here. She denies any complaints. No headaches, no fevers, no chest pain.) Nursing Reports: Confused Objective Vital Signs: Vital Signs - 24 hr 09/21/17 09/21/17 09/21/17 17:00 21:00 23:48 Temperature 36.7 C 36.7 C 36.5 C Heart Rate [ 99 106 H 102 H Brachial] Respiratory 18 18 16 Rate Blood Pressure Blood Pressure 142/62 H 132/62 H 132/69 H [Right Brachial artery] O2 Saturation 99 98 96 09/22/17 09/22/17 09/22/17 05:00 08:21 08:37 Temperature 36.6 C 36.8 C Heart Rate [ 102 H 100 Brachial] Respiratory 16 16 Rate Blood Pressure 137/80 H Blood Pressure 139/80 H 137/80 H [Right Brachial artery] O2 Saturation 97 97 09/22/17 13:00 Temperature 36.4 C L Heart Rate [ 72 Brachial] Respiratory 18 Rate Blood Pressure Blood Pressure 112/55 L [Right Brachial artery] O2 Saturation 100 Oxygen O2 Source Room air I&O (Last 24 Hrs): Intake and Output Totals x24h 09/20/17 09/21/17 09/22/17 23:59 23:59 23:59 Intake Total 1800 2019 Balance 1800 2019 750 General: Alert, Cooperative, No acute distress, Other (Oriented x2) HEENT: Atraumatic, PERRLA, EOMI, Mucous membr. moist/pink Neck: Supple, No JVD, No thyromegaly, +2 carotid pulse wo bruit, No LAD Lymphatic: no adenopathy Neuro: Alert, Disoriented, Non Focal, CN 2-12 Grossly Intact, Other (Lacks insight) Cardiovascular: Regular rate, Normal S1, Normal S2, No murmurs Respiratory: Chest non-tender, No respiratory distress, Breath sounds nml Abdomen: Normal bowel sounds, Soft, No tenderness, No hepatospenomegaly Extremities: No clubbing, No cyanosis, No edema, Normal pulses Skin: No rashes, No breakdown - Results Results: Laboratory Results WBC 13.5 x10^3/uL (4.8-10.8) H 09/15/17 15:00 RBC 4.80 10^6/uL (4.20-5.40) 09/15/17 15:00 Hgb 15.0 g/dL (12.0-16.0) 09/15/17 15:00 Hct 44.5 % (37.0-47.0) 09/15/17 15:00 MCV 92.6 fL (81.0-99.0) 09/15/17 15:00 MCH 31.3 pg (27.0-31.0) H 09/15/17 15:00 MCHC 33.8 g/dL (32.0-36.0) 09/15/17 15:00 RDW 13.5 % (12.0-15.0) 09/15/17 15:00 Plt Count 294 10^3/uL (130-450) 09/15/17 15:00 MPV 7.3 fL (7.9-10.8) L 09/15/17 15:00 Neut # 10.8 10^3/uL (1.5-6.6) H 09/15/17 15:00 Lymph # 1.4 10^3/uL (1.5-3.5) L 09/15/17 15:00 Meade # 1.2 10^3/uL (0.0-1.0) H 09/15/17 15:00 Eos # 0.1 10^3/uL (0.0-0.7) 09/15/17 15:00 Baso # 0.0 10^3/uL (0.0-0.1) 09/15/17 15:00 Absolute Nucleated RBC 0.01 x10^3/uL 09/15/17 15:00 Nucleated RBC % 0.0 /100WBC 09/15/17 15:00 PT 11.6 secs (9.9-12.6) 09/15/17 15:00 INR 1.0 (0.8-1.2) 09/15/17 15:00 Sodium 135 mmol/L (135-145) 09/15/17 15:00 Potassium 3.4 mmol/L (3.5-5.0) L 09/15/17 15:00 Chloride 93 mmol/L (101-111) L 09/15/17 15:00 Carbon Dioxide 27 mmol/L (21-32) 09/15/17 15:00 Anion Gap 15.0 (6-13) H 09/15/17 15:00 BUN 15 mg/dL (6-20) 09/15/17 15:00 Creatinine 0.8 mg/dL (0.4-1.0) 09/15/17 15:00 Estimated GFR (MDRD) 71 (>89) L 09/15/17 15:00 Glucose 143 mg/dL (70-100) H 09/15/17 15:00 Calcium 9.8 mg/dL (8.5-10.3) 09/15/17 15:00 Magnesium 1.9 mg/dL (1.7-2.8) 09/15/17 15:00 Total Bilirubin 1.3 mg/dL (0.2-1.0) H 09/15/17 15:00 AST 24 IU/L (10-42) 09/15/17 15:00 ALT 17 IU/L (10-60) 09/15/17 15:00 Alkaline Phosphatase 72 IU/L (42-121) 09/15/17 15:00 Ammonia 9.0 umol/L (7-35) 09/15/17 15:00 Total Creatine Kinase 18 IU/L (22-269) L 09/15/17 15:00 Troponin I < 0.04 ng/mL (<0.49) 09/15/17 15:00 Total Protein 7.2 g/dL (6.7-8.2) 09/15/17 15:00 Albumin 3.9 g/dL (3.2-5.5) 09/15/17 15:00 Globulin 3.3 g/dL (2.1-4.2) 09/15/17 15:00 Albumin/Globulin Ratio 1.2 (1.0-2.2) 09/15/17 15:00 Lipase 28 U/L (22-51) 09/15/17 15:00 Folate 3.20 ng/mL (5.90 - >24.8) L 09/18/17 09:50 TSH 1.91 uIU/mL (0.34-5.60) 09/15/17 15:00 Urine Color YELLOW 09/18/17 09:39 Urine Clarity CLEAR (CLEAR) 09/18/17 09:39 Urine pH 6.0 PH (5.0-7.5) 09/18/17 09:39 Ur Specific [place]iss 1.020 (1.002-1.030) 09/18/17 09:39 Urine Protein NEGATIVE mg/dL (NEGATIVE) 09/18/17 09:39 Urine Glucose (UA) NEGATIVE mg/dL (NEGATIVE) 09/18/17 09:39 Urine Ketones NEGATIVE mg/dL (NEGATIVE) 09/18/17 09:39 Urine Occult Blood NEGATIVE (NEGATIVE) 09/18/17 09:39 Urine Nitrite NEGATIVE (NEGATIVE) 09/18/17 09:39 Urine Bilirubin NEGATIVE (NEGATIVE) 09/18/17 09:39 Urine Urobilinogen 2 E.U./dL (NORMAL) H 09/18/17 09:39 Ur Leukocyte Esterase NEGATIVE (NEGATIVE) 09/18/17 09:39 Urine RBC 0-5 /HPF (0-5) 09/15/17 16:00 Urine WBC 4-5 /HPF (0-5) 09/15/17 16:00 Ur Squamous Epith Cells MOD Squamous (<= Few) H 09/15/17 16:00 Urine Bacteria Few /HPF (None Seen) 09/15/17 16:00 Urine Mucus Few Strands 09/15/17 16:00 Ur Microscopic Review NOT INDICATED 09/18/17 09:39 Urine Culture Comments NOT INDICATED 09/18/17 09:39 Salicylates < 6.0 mg/dL 09/15/17 15:00 Urine Opiates Screen NEGATIVE (NEGATIVE) 09/15/17 16:00 Ur Oxycodone Screen NEGATIVE (NEGATIVE) 09/15/17 16:00 Urine Methadone Screen NEGATIVE (NEGATIVE) 09/15/17 16:00 Ur Propoxyphene Screen NEGATIVE (NEGATIVE) 09/15/17 16:00 Acetaminophen < 10 ug/mL (10-30) L 09/15/17 15:00 Ur Barbiturates Screen NEGATIVE (NEGATIVE) 09/15/17 16:00 Ur Tricyclics Screen NEGATIVE (NEGATIVE) 09/15/17 16:00 Ur Phencyclidine Scrn NEGATIVE (NEGATIVE) 09/15/17 16:00 Ur Amphetamine Screen NEGATIVE (NEGATIVE) 09/15/17 16:00 U Methamphetamines Scrn NEGATIVE (NEGATIVE) 09/15/17 16:00 U Benzodiazepines Scrn NEGATIVE (NEGATIVE) 09/15/17 16:00 Urine Cocaine Screen NEGATIVE (NEGATIVE) 09/15/17 16:00 U Cannabinoids Screen NEGATIVE (NEGATIVE) 09/15/17 16:00 Ethyl Alcohol < 5.0 mg/dL 09/15/17 15:00 - Procedures Procedures: Procedures ESOPHAGOGASTRODUODENOSCOPY [EGD] W/CLOSED BIOPSY (02/12/14) EXCISION OF STOMACH, ENDO, DIAGN (08/26/17)
[2017-09-22] MEDS: ENOXAPARIN 40 MG/0.4 ML SYRINGE SUBQ SCH (20:07)
[2017-09-22] MEDS: DONEPEZIL 5 MG TABLET PO SCH (20:10)
[2017-09-23] MEDS: metroNIDAZOLE 250 MG TABLET PO SCH ×3 (05:36→20:51)
[2017-09-23] MEDS: CLARITHROMYCIN 500 MG TABLET PO SCH ×2 (09:45→20:55)
[2017-09-23] MEDS: FOLIC ACID 1 MG TABLET PO SCH (09:45)
[2017-09-23] MEDS: METOPROLOL TARTRATE 25 MG TABLET PO SCH ×2 (09:46→20:52)
--- NOTE | 2017-09-23 11:15 | PROVIDER PROGRESS NOTE ---
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 She does not understand her diagnoses. She is unaware of where she is. She does not have capacity to make safe decisions regarding her healthcare. Daughter is DPOA Social work is working to find the patient a Medicaid Bed for placement Continue Thiamine and Aricept. Start Folic acid (2) H. pylori infection Assessment/Plan: Continue treatment till Sep 24 to complete course Stable (3) Hypertension Assessment/Plan: On metoprolol BP better controlled Stable - Current Meds Current Meds: Current Medications Generic Name Dose Route Start Last Admin Trade Name Freq PRN Reason Stop Dose Admin Clarithromycin 500 mg 09/18/17 21:00 09/23/17 09:45 Biaxin PO 500 mg BID NAYELI Administration Donepezil HCl 5 mg 09/18/17 21:00 09/22/17 20:10 Aricept PO 5 mg QPM NAYELI Administration Enoxaparin Sodium 40 mg 09/18/17 18:00 09/22/17 20:07 Lovenox SUBQ Not Given Q24H NAYELI Folic Acid 1 mg 09/21/17 14:00 09/23/17 09:45 PO 1 mg DAILY NAYELI Administration Lorazepam 1 mg 09/21/17 15:30 09/22/17 20:09 Ativan PO 1 mg Q6H PRN Administration Anxiety Metoprolol Tartrate 25 mg 09/22/17 08:00 09/23/17 09:46 Lopressor PO 25 mg BID NAYELI Administration Metronidazole 500 mg 09/18/17 22:00 09/23/17 05:36 Flagyl PO 500 mg TID NAYELI Administration Polyethylene Glycol 17 gm 09/19/17 09:00 09/22/17 08:38 Miralax PO Not Given DAILY NAYELI - Lab Result Lab results reviewed: Yes Fish Bone Diagrams: 09/15/17 15:00 09/15/17 15:00 - Diagnostic Imaging Results Diagnostic Imaging Results: Final report reviewed - Additional Planning Condition/Complexity: Guarded Plan Discussed with:: Patient Time Spent: 15-30 minutes Subjective - Subjective Patient Reports: Feeling Better, Resting Comfortably, No Complaints (Patient denies any fevers, chills, headaches, chest pain.) Nursing Reports: Confused Objective Vital Signs: Vital Signs - 24 hr 09/22/17 09/22/1709/22/17 13:00 16:47 19:33 Temperature 36.4 C L 36.5 C 36.8 C Heart Rate [ 72 84 92 Brachial] Respiratory 18 18 18 Rate Blood Pressure Blood Pressure 112/55 L 118/38 L 141/66 H [Right Brachial artery] O2 Saturation 100 100 99 09/22/17 09/23/17 09/23/17 20:09 00:02 05:29 Temperature 36.5 C 36.7 C Heart Rate [ 81 86 Brachial] Respiratory 16 16 Rate Blood Pressure 141/66 H Blood Pressure 121/71 145/68 H [Right Brachial artery] O2 Saturation 97 98 09/23/17 09/23/17 08:15 09:46 Temperature 36.4 C L Heart Rate [ 96 Brachial] Respiratory 19 Rate Blood Pressure 124/67 Blood Pressure 124/67 [Right Brachial artery] O2 Saturation 100 Oxygen O2 Source Room air I&O (Last 24 Hrs): Intake and Output Totals x24h 09/21/17 09/22/17 09/23/17 23:59 23:59 23:59 Intake Total 2019 1650 460 Balance 2019 1650 460 General: Alert, Cooperative, No acute distress, Other (Oriented x2) HEENT: Atraumatic, PERRLA, EOMI, Mucous membr. moist/pink Neck: Supple, No JVD, No thyromegaly, +2 carotid pulse wo bruit, No LAD Lymphatic: no adenopathy Neuro: Alert, Disoriented, Non Focal, CN 2-12 Grossly Intact Cardiovascular: Regular rate, Normal S1, Normal S2, No murmurs Respiratory: Chest non-tender, No respiratory distress, Breath sounds nml Abdomen: Normal bowel sounds, Soft, No tenderness, No hepatospenomegaly Extremities: No clubbing, No cyanosis, No edema, Normal pulses Skin: No rashes, No breakdown, No significant lesion - Results Results: Laboratory Results WBC 13.5 x10^3/uL (4.8-10.8) H 09/15/17 15:00 RBC 4.80 10^6/uL (4.20-5.40) 09/15/17 15:00 Hgb 15.0 g/dL (12.0-16.0) 09/15/17 15:00 Hct 44.5 % (37.0-47.0) 09/15/17 15:00 MCV 92.6 fL (81.0-99.0) 09/15/17 15:00 MCH 31.3 pg (27.0-31.0) H 09/15/17 15:00 MCHC 33.8 g/dL (32.0-36.0) 09/15/17 15:00 RDW 13.5 % (12.0-15.0) 09/15/17 15:00 Plt Count 294 10^3/uL (130-450) 09/15/17 15:00 MPV 7.3 fL (7.9-10.8) L 09/15/17 15:00 Neut # 10.8 10^3/uL (1.5-6.6) H 09/15/17 15:00 Lymph # 1.4 10^3/uL (1.5-3.5) L 09/15/17 15:00 [place] # 1.2 10^3/uL (0.0-1.0) H 09/15/17 15:00 Eos # 0.1 10^3/uL (0.0-0.7) 09/15/17 15:00 Baso # 0.0 10^3/uL (0.0-0.1) 09/15/17 15:00 Absolute Nucleated RBC 0.01 x10^3/uL 09/15/17 15:00 Nucleated RBC % 0.0 /100WBC 09/15/17 15:00 PT 11.6 secs (9.9-12.6) 09/15/17 15:00 INR 1.0 (0.8-1.2) 09/15/17 15:00 Sodium 135 mmol/L (135-145) 09/15/17 15:00 Potassium 3.4 mmol/L (3.5-5.0) L 09/15/17 15:00 Chloride 93 mmol/L (101-111) L 09/15/17 15:00 Carbon Dioxide 27 mmol/L (21-32) 09/15/17 15:00 Anion Gap 15.0 (6-13) H 09/15/17 15:00 BUN 15 mg/dL (6-20) 09/15/17 15:00 Creatinine 0.8 mg/dL (0.4-1.0) 09/15/17 15:00 Estimated GFR (MDRD) 71 (>89) L 09/15/17 15:00 Glucose 143 mg/dL (70-100) H 09/15/17 15:00 Calcium 9.8 mg/dL (8.5-10.3) 09/15/17 15:00 Magnesium 1.9 mg/dL (1.7-2.8) 09/15/17 15:00 Total Bilirubin 1.3 mg/dL (0.2-1.0) H 09/15/17 15:00 AST 24 IU/L (10-42) 09/15/17 15:00 ALT 17 IU/L (10-60) 09/15/17 15:00 Alkaline Phosphatase 72 IU/L (42-121) 09/15/17 15:00 Ammonia 9.0 umol/L (7-35) 09/15/17 15:00 Total Creatine Kinase 18 IU/L (22-269) L 09/15/17 15:00 Troponin I < 0.04 ng/mL (<0.49) 09/15/17 15:00 Total Protein 7.2 g/dL (6.7-8.2) 09/15/17 15:00 Albumin 3.9 g/dL (3.2-5.5) 09/15/17 15:00 Globulin 3.3 g/dL (2.1-4.2) 09/15/17 15:00 Albumin/Globulin Ratio 1.2 (1.0-2.2) 09/15/17 15:00 Lipase 28 U/L (22-51) 09/15/17 15:00 Folate 3.20 ng/mL (5.90 - >24.8) L 09/18/17 09:50 TSH 1.91 uIU/mL (0.34-5.60) 09/15/17 15:00 Urine Color YELLOW 09/18/17 09:39 Urine Clarity CLEAR (CLEAR) 09/18/17 09:39 Urine pH 6.0 PH (5.0-7.5) 09/18/17 09:39 Ur Specific [place] 1.020 (1.002-1.030) 09/18/17 09:39 Urine Protein NEGATIVE mg/dL (NEGATIVE) 09/18/17 09:39 Urine Glucose (UA) NEGATIVE mg/dL (NEGATIVE) 09/18/17 09:39 Urine Ketones NEGATIVE mg/dL (NEGATIVE) 09/18/17 09:39 Urine Occult Blood NEGATIVE (NEGATIVE) 09/18/17 09:39 Urine Nitrite NEGATIVE (NEGATIVE) 09/18/17 09:39 Urine Bilirubin NEGATIVE (NEGATIVE) 09/18/17 09:39 Urine Urobilinogen 2 E.U./dL (NORMAL) H 09/18/17 09:39 Ur Leukocyte Esterase NEGATIVE (NEGATIVE) 09/18/17 09:39 Urine RBC 0-5 /HPF (0-5) 09/15/17 16:00 Urine WBC 4-5 /HPF (0-5) 09/15/17 16:00 Ur Squamous Epith Cells MOD Squamous (<= Few) H 09/15/17 16:00 Urine Bacteria Few /HPF (None Seen) 09/15/17 16:00 Urine Mucus Few Strands 09/15/17 16:00 Ur Microscopic Review NOT INDICATED 09/18/17 09:39 Urine Culture Comments NOT INDICATED 09/18/17 09:39 Salicylates < 6.0 mg/dL 09/15/17 15:00 Urine Opiates Screen NEGATIVE (NEGATIVE) 09/15/17 16:00 Ur Oxycodone Screen NEGATIVE (NEGATIVE) 09/15/17 16:00 Urine Methadone Screen NEGATIVE (NEGATIVE) 09/15/17 16:00 Ur Propoxyphene Screen NEGATIVE (NEGATIVE) 09/15/17 16:00 Acetaminophen < 10 ug/mL (10-30) L 09/15/17 15:00 Ur Barbiturates Screen NEGATIVE (NEGATIVE) 09/15/17 16:00 Ur Tricyclics Screen NEGATIVE (NEGATIVE) 09/15/17 16:00 Ur Phencyclidine Scrn NEGATIVE (NEGATIVE) 09/15/17 16:00 Ur Amphetamine Screen NEGATIVE (NEGATIVE) 09/15/17 16:00 U Methamphetamines Scrn NEGATIVE (NEGATIVE) 09/15/17 16:00 U Benzodiazepines Scrn NEGATIVE (NEGATIVE) 09/15/17 16:00 Urine Cocaine Screen NEGATIVE (NEGATIVE) 09/15/17 16:00 U Cannabinoids Screen NEGATIVE (NEGATIVE) 09/15/17 16:00 Ethyl Alcohol < 5.0 mg/dL 09/15/17 15:00 - Procedures Procedures: Procedures ESOPHAGOGASTRODUODENOSCOPY [EGD] W/CLOSED BIOPSY (02/12/14) EXCISION OF STOMACH, ENDO, DIAGN (08/26/17)
[2017-09-23] MEDS: POLYETHYLENE GLYCOL 3350 17 GM PACKET PO SCH (11:19)
[2017-09-23] MEDS: ENOXAPARIN 40 MG/0.4 ML SYRINGE SUBQ SCH (17:44)
[2017-09-23] MEDS: DONEPEZIL 5 MG TABLET PO SCH (20:55)
[2017-09-24] MEDS: ZOLPIDEM 5 MG TABLET PO PRN (01:36)
[2017-09-24] MEDS: ACETAMINOPHEN 325 MG TABLET PO PRN (01:36)
[2017-09-24] MEDS: metroNIDAZOLE 250 MG TABLET PO SCH ×3 (05:40→21:49)
[2017-09-24] MEDS: FOLIC ACID 1 MG TABLET PO SCH (08:08)
[2017-09-24] MEDS: CLARITHROMYCIN 500 MG TABLET PO SCH ×2 (08:09→20:14)
[2017-09-24] MEDS: METOPROLOL TARTRATE 25 MG TABLET PO SCH ×2 (08:09→20:15)
[2017-09-24] MEDS: POLYETHYLENE GLYCOL 3350 17 GM PACKET PO SCH (08:09)
--- NOTE | 2017-09-24 14:46 | PROVIDER PROGRESS NOTE ---
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 She does not understand her diagnoses. She is unaware of where she is. She does not have capacity to make safe decisions regarding her healthcare. Daughter is DPOA Social work is working to find the patient a Medicaid Bed for placement Continue Thiamine and Aricept. Start Folic acid (2) H. pylori infection Assessment/Plan: Treatment will be completed (3) Hypertension Assessment/Plan: On metoprolol BP controlled - Current Meds Current Meds: Current Medications Generic Name Dose Route Start Last Admin Trade Name Freq PRN Reason Stop Dose Admin Acetaminophen 650 mg 09/18/17 15:43 09/24/17 01:36 Tylenol PO 650 mg Q4HR PRN Administration Pain 1 to 4 Clarithromycin 500 mg 09/18/17 21:00 09/24/17 08:09 Biaxin PO 500 mg BID NAYELI Administration Donepezil HCl 5 mg 09/18/17 21:00 09/23/17 20:55 Aricept PO 5 mg QPM NAYELI Administration Enoxaparin Sodium 40 mg 09/18/17 18:00 09/23/17 17:44 Lovenox SUBQ 40 mg Q24H NAYELI Administration Folic Acid 1 mg 09/21/17 14:00 09/24/17 08:08 PO 1 mg DAILY NAYELI Administration Lorazepam 1 mg 09/21/17 15:30 09/22/17 20:09 Ativan PO 1 mg Q6H PRN Administration Anxiety Metoprolol Tartrate 25 mg 09/22/17 08:00 09/24/17 08:09 Lopressor PO 25 mg BID NAYELI Administration Metronidazole 500 mg 09/18/17 22:00 09/24/17 13:42 Flagyl PO 500 mg TID NAYELI Administration Polyethylene Glycol 17 gm 09/19/17 09:00 09/24/17 08:09 Miralax PO Not Given DAILY NAYELI Zolpidem Tartrate 5 mg 09/21/17 15:30 09/24/17 01:36 Ambien PO 5 mg QPM PRN Administration Insomnia - Lab Result Lab results reviewed: Yes Fish Bone Diagrams: 09/15/17 15:00 09/15/17 15:00 - Additional Planning Condition/Complexity: Guarded Plan Discussed with:: Patient Time Spent: 15-30 minutes Subjective - Subjective Patient Reports: No Complaints (Patient still confused. Does not know where she is or why. She denies any complaints.) Nursing Reports: No Complaints Objective Vital Signs: Vital Signs - 24 hr 09/23/17 09/23/17 09/23/17 15:49 19:55 20:52 Temperature 36.9 C 36.9 C Heart Rate [ 76 85 Brachial] Respiratory 19 19 Rate Blood Pressure 133/62 H Blood Pressure 134/72 H 143/70 H [Right Brachial artery] O2 Saturation 100 99 09/23/17 09/24/17 09/24/17 23:35 05:00 07:26 Temperature 37.1 C 36.8 C 36.8 C Heart Rate [ 79 77 91 Brachial] Respiratory 16 16 16 Rate Blood Pressure Blood Pressure 118/79 129/48 L 138/52 H [Right Brachial artery] O2 Saturation 98 96 100 09/24/17 12:48 Temperature 36.8 C Heart Rate [ 75 Brachial] Respiratory 16 Rate Blood Pressure Blood Pressure 138/59 H [Right Brachial artery] O2 Saturation 99 Oxygen O2 Source Room air I&O (Last 24 Hrs): Intake and Output Totals x24h 09/22/17 09/23/17 09/24/17 23:59 23:59 23:59 Intake Total 1650 1050 120 Balance 1650 1050 120 General: Alert, Cooperative, No acute distress, Other (Oriented x1) HEENT: Atraumatic, PERRLA, EOMI, Mucous membr. moist/pink Neck: Supple, No JVD, No thyromegaly, +2 carotid pulse wo bruit, No LAD Lymphatic: no adenopathy Neuro: Alert, Disoriented, Non Focal, CN 2-12 Grossly Intact Cardiovascular: Regular rate, Normal S1, Normal S2, No murmurs Respiratory: Chest non-tender, No respiratory distress, Breath sounds nml Abdomen: Normal bowel sounds, Soft, No tenderness, No hepatospenomegaly Extremities: No clubbing, No cyanosis, No edema, Normal pulses Skin: No rashes, No breakdown, No significant lesion - Results Results: Laboratory Results WBC 13.5 x10^3/uL (4.8-10.8) H 09/15/17 15:00 RBC 4.80 10^6/uL (4.20-5.40) 09/15/17 15:00 Hgb 15.0 g/dL (12.0-16.0) 09/15/17 15:00 Hct 44.5 % (37.0-47.0) 09/15/17 15:00 MCV 92.6 fL (81.0-99.0) 09/15/17 15:00 MCH 31.3 pg (27.0-31.0) H 09/15/17 15:00 MCHC 33.8 g/dL (32.0-36.0) 09/15/17 15:00 RDW 13.5 % (12.0-15.0) 09/15/17 15:00 Plt Count 294 10^3/uL (130-450) 09/15/17 15:00 MPV 7.3 fL (7.9-10.8) L 09/15/17 15:00 Neut # 10.8 10^3/uL (1.5-6.6) H 09/15/17 15:00 Lymph # 1.4 10^3/uL (1.5-3.5) L 09/15/17 15:00 [place] # 1.2 10^3/uL (0.0-1.0) H 09/15/17 15:00 Eos # 0.1 10^3/uL (0.0-0.7) 09/15/17 15:00 Baso # 0.0 10^3/uL (0.0-0.1) 09/15/17 15:00 Absolute Nucleated RBC 0.01 x10^3/uL 09/15/17 15:00 Nucleated RBC % 0.0 /100WBC 09/15/17 15:00 PT 11.6 secs (9.9-12.6) 09/15/17 15:00 INR 1.0 (0.8-1.2) 09/15/17 15:00 Sodium 135 mmol/L (135-145) 09/15/17 15:00 Potassium 3.4 mmol/L (3.5-5.0) L 09/15/17 15:00 Chloride 93 mmol/L (101-111) L 09/15/17 15:00 Carbon Dioxide 27 mmol/L (21-32) 09/15/17 15:00 Anion Gap 15.0 (6-13) H 09/15/17 15:00 BUN 15 mg/dL (6-20) 09/15/17 15:00 Creatinine 0.8 mg/dL (0.4-1.0) 09/15/17 15:00 Estimated GFR (MDRD) 71 (>89) L 09/15/17 15:00 Glucose 143 mg/dL (70-100) H 09/15/17 15:00 Calcium 9.8 mg/dL (8.5-10.3) 09/15/17 15:00 Magnesium 1.9 mg/dL (1.7-2.8) 09/15/17 15:00 Total Bilirubin 1.3 mg/dL (0.2-1.0) H 09/15/17 15:00 AST 24 IU/L (10-42) 09/15/17 15:00 ALT 17 IU/L (10-60) 09/15/17 15:00 Alkaline Phosphatase 72 IU/L (42-121) 09/15/17 15:00 Ammonia 9.0 umol/L (7-35) 09/15/17 15:00 Total Creatine Kinase 18 IU/L (22-269) L 09/15/17 15:00 Troponin I < 0.04 ng/mL (<0.49) 09/15/17 15:00 Total Protein 7.2 g/dL (6.7-8.2) 09/15/17 15:00 Albumin 3.9 g/dL (3.2-5.5) 09/15/17 15:00 Globulin 3.3 g/dL (2.1-4.2) 09/15/17 15:00 Albumin/Globulin Ratio 1.2 (1.0-2.2) 09/15/17 15:00 Lipase 28 U/L (22-51) 09/15/17 15:00 Folate 3.20 ng/mL (5.90 - >24.8) L 09/18/17 09:50 TSH 1.91 uIU/mL (0.34-5.60) 09/15/17 15:00 Urine Color YELLOW 09/18/17 09:39 Urine Clarity CLEAR (CLEAR) 09/18/17 09:39 Urine pH 6.0 PH (5.0-7.5) 09/18/17 09:39 Ur Specific [place] 1.020 (1.002-1.030) 09/18/17 09:39 Urine Protein NEGATIVE mg/dL (NEGATIVE) 09/18/17 09:39 Urine Glucose (UA) NEGATIVE mg/dL (NEGATIVE) 09/18/17 09:39 Urine Ketones NEGATIVE mg/dL (NEGATIVE) 09/18/17 09:39 Urine Occult Blood NEGATIVE (NEGATIVE) 09/18/17 09:39 Urine Nitrite NEGATIVE (NEGATIVE) 09/18/17 09:39 Urine Bilirubin NEGATIVE (NEGATIVE) 09/18/17 09:39 Urine Urobilinogen 2 E.U./dL (NORMAL) H 09/18/17 09:39 Ur Leukocyte Esterase NEGATIVE (NEGATIVE) 09/18/17 09:39 Urine RBC 0-5 /HPF (0-5) 09/15/17 16:00 Urine WBC 4-5 /HPF (0-5) 09/15/17 16:00 Ur Squamous Epith Cells MOD Squamous (<= Few) H 09/15/17 16:00 Urine Bacteria Few /HPF (None Seen) 09/15/17 16:00 Urine Mucus Few Strands 09/15/17 16:00 Ur Microscopic Review NOT INDICATED 09/18/17 09:39 Urine Culture Comments NOT INDICATED 09/18/17 09:39 Salicylates < 6.0 mg/dL 09/15/17 15:00 Urine Opiates Screen NEGATIVE (NEGATIVE) 09/15/17 16:00 Ur Oxycodone Screen NEGATIVE (NEGATIVE) 09/15/17 16:00 Urine Methadone Screen NEGATIVE (NEGATIVE) 09/15/17 16:00 Ur Propoxyphene Screen NEGATIVE (NEGATIVE) 09/15/17 16:00 Acetaminophen < 10 ug/mL (10-30) L 09/15/17 15:00 Ur Barbiturates Screen NEGATIVE (NEGATIVE) 09/15/17 16:00 Ur Tricyclics Screen NEGATIVE (NEGATIVE) 09/15/17 16:00 Ur Phencyclidine Scrn NEGATIVE (NEGATIVE) 09/15/17 16:00 Ur Amphetamine Screen NEGATIVE (NEGATIVE) 09/15/17 16:00 U Methamphetamines Scrn NEGATIVE (NEGATIVE) 09/15/17 16:00 U Benzodiazepines Scrn NEGATIVE (NEGATIVE) 09/15/17 16:00 Urine Cocaine Screen NEGATIVE (NEGATIVE) 09/15/17 16:00 U Cannabinoids Screen NEGATIVE (NEGATIVE) 09/15/17 16:00 Ethyl Alcohol < 5.0 mg/dL 09/15/17 15:00 - Procedures Procedures: Procedures ESOPHAGOGASTRODUODENOSCOPY [EGD] W/CLOSED BIOPSY (02/12/14) EXCISION OF STOMACH, ENDO, DIAGN (08/26/17)
[2017-09-24] MEDS: ENOXAPARIN 40 MG/0.4 ML SYRINGE SUBQ SCH (17:49)
[2017-09-24] MEDS: LORazepam 0.5 MG TABLET PO PRN (18:48)
[2017-09-24] MEDS: PROMETHAZINE 12.5 MG TABLET PO PRN (20:14)
[2017-09-24] MEDS: DONEPEZIL 5 MG TABLET PO SCH (20:15)
[2017-09-25] MEDS: metroNIDAZOLE 250 MG TABLET PO SCH (07:01)
[2017-09-25] MEDS: FOLIC ACID 1 MG TABLET PO SCH (08:29)
[2017-09-25] MEDS: CLARITHROMYCIN 500 MG TABLET PO SCH (08:29)
[2017-09-25] MEDS: METOPROLOL TARTRATE 25 MG TABLET PO SCH ×2 (08:29→20:02)
[2017-09-25] MEDS: POLYETHYLENE GLYCOL 3350 17 GM PACKET PO SCH (08:29)
--- NOTE | 2017-09-25 14:02 | PROVIDER PROGRESS NOTE ---
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 She does not understand her diagnoses. She is unaware of where she is. She does not have capacity to make safe decisions regarding her healthcare. Daughter is DPOA Social work is working to find the patient a Medicaid Bed for placement Continue Thiamine and Aricept. Start Folic acid Today patient walked out of her room into another patient room to use the bathroom. Nursing could not find patient for sometime but the patient is now safe in her bed. Patients sister visited today and patient did recognize her sister but continues to have no idea why she is here or what the plan is for her despite being told everyday. (2) H. pylori infection Assessment/Plan: Completed treatment Stable (3) Hypertension Assessment/Plan: On metoprolol BP controlled - Current Meds Current Meds: Current Medications Generic Name Dose Route Start Last Admin Trade Name Freq PRN Reason Stop Dose Admin Acetaminophen 650 mg 09/18/17 15:43 09/24/17 01:36 Tylenol PO 650 mg Q4HR PRN Administration Pain 1 to 4 Donepezil HCl 5 mg 09/18/17 21:00 09/24/17 20:15 Aricept PO 5 mg QPM NAYELI Administration Enoxaparin Sodium 40 mg 09/18/17 18:00 09/24/17 17:49 Lovenox SUBQ Not Given Q24H NAYELI Folic Acid 1 mg 09/21/17 14:00 09/25/17 08:29 PO 1 mg DAILY NAYELI Administration Lorazepam 1 mg 09/21/17 15:30 09/24/17 18:48 Ativan PO 1 mg Q6H PRN Administration Anxiety Metoprolol Tartrate 25 mg 09/22/17 08:00 09/25/17 08:29 Lopressor PO 25 mg BID NAYELI Administration Polyethylene Glycol 17 gm 09/19/17 09:00 09/25/17 08:29 Miralax PO Not Given DAILY NAYELI Promethazine HCl 12.5 mg 09/18/17 15:57 09/24/17 20:14 Phenergan PO 12.5 mg Q6H PRN Administration Nausea / Vomiting Zolpidem Tartrate 5 mg 09/21/17 15:30 09/24/17 01:36 Ambien PO 5 mg QPM PRN Administration Insomnia - Lab Result Lab results reviewed: Yes Fish Bone Diagrams: 09/15/17 15:00 09/15/17 15:00 - Additional Planning Condition/Complexity: Guarded Consult/Specialty: Other (Social Work) Plan Discussed with:: Patient, Family Time Spent: 15-30 minutes Subjective - Subjective Patient Reports: Feeling Better, Resting Comfortably, No Complaints (Patient pleasantly confused. Denies any complaints.) Nursing Reports: No Complaints Objective Vital Signs: Vital Signs - 24 hr 09/24/17 09/24/17 09/24/17 15:27 19:13 23:46 Temperature 36.8 C 36.9 C 36.8 C Heart Rate [ 87 85 82 Brachial] Respiratory 17 17 16 Rate Blood Pressure 135/73 H 129/56 L 131/71 H [Right Brachial artery] O2 Saturation 99 99 99 09/25/17 07:54 Temperature 36.2 C L Heart Rate [ 95 Brachial] Respiratory 19 Rate Blood Pressure 136/77 H [Right Brachial artery] O2 Saturation 99 Oxygen O2 Source Room air I&O (Last 24 Hrs): Intake and Output Totals x24h 09/23/17 09/24/17 09/25/17 23:59 23:59 23:59 Intake Total 1050 820 240 Balance 1050 820 240 General: Alert, Cooperative, No acute distress, Other (Oriented x1 today) HEENT: Atraumatic, PERRLA, EOMI Neck: Supple, No JVD, No thyromegaly, +2 carotid pulse wo bruit, No LAD Lymphatic: no adenopathy Neuro: Alert, Disoriented, Non Focal, CN 2-12 Grossly Intact, Oriented Times 3 Cardiovascular: Regular rate, Normal S1, Normal S2, No murmurs Respiratory: Chest non-tender, No respiratory distress, Breath sounds nml Abdomen: Normal bowel sounds, Soft, No tenderness Extremities: No clubbing, No cyanosis, No edema, Normal pulses Skin: No rashes, No breakdown - Results Results: Laboratory Results WBC 13.5 x10^3/uL (4.8-10.8) H 09/15/17 15:00 RBC 4.80 10^6/uL (4.20-5.40) 09/15/17 15:00 Hgb 15.0 g/dL (12.0-16.0) 09/15/17 15:00 Hct 44.5 % (37.0-47.0) 09/15/17 15:00 MCV 92.6 fL (81.0-99.0) 09/15/17 15:00 MCH 31.3 pg (27.0-31.0) H 09/15/17 15:00 MCHC 33.8 g/dL (32.0-36.0) 09/15/17 15:00 RDW 13.5 % (12.0-15.0) 09/15/17 15:00 Plt Count 294 10^3/uL (130-450) 09/15/17 15:00 MPV 7.3 fL (7.9-10.8) L 09/15/17 15:00 Neut # 10.8 10^3/uL (1.5-6.6) H 09/15/17 15:00 Lymph # 1.4 10^3/uL (1.5-3.5) L 09/15/17 15:00 [place] # 1.2 10^3/uL (0.0-1.0) H 09/15/17 15:00 Eos # 0.1 10^3/uL (0.0-0.7) 09/15/17 15:00 Baso # 0.0 10^3/uL (0.0-0.1) 09/15/17 15:00 Absolute Nucleated RBC 0.01 x10^3/uL 09/15/17 15:00 Nucleated RBC % 0.0 /100WBC 09/15/17 15:00 PT 11.6 secs (9.9-12.6) 09/15/17 15:00 INR 1.0 (0.8-1.2) 09/15/17 15:00 Sodium 135 mmol/L (135-145) 09/15/17 15:00 Potassium 3.4 mmol/L (3.5-5.0) L 09/15/17 15:00 Chloride 93 mmol/L (101-111) L 09/15/17 15:00 Carbon Dioxide 27 mmol/L (21-32) 09/15/17 15:00 Anion Gap 15.0 (6-13) H 09/15/17 15:00 BUN 15 mg/dL (6-20) 09/15/17 15:00 Creatinine 0.8 mg/dL (0.4-1.0) 09/15/17 15:00 Estimated GFR (MDRD) 71 (>89) L 09/15/17 15:00 Glucose 143 mg/dL (70-100) H 09/15/17 15:00 Calcium 9.8 mg/dL (8.5-10.3) 09/15/17 15:00 Magnesium 1.9 mg/dL (1.7-2.8) 09/15/17 15:00 Total Bilirubin 1.3 mg/dL (0.2-1.0) H 09/15/17 15:00 AST 24 IU/L (10-42) 09/15/17 15:00 ALT 17 IU/L (10-60) 09/15/17 15:00 Alkaline Phosphatase 72 IU/L (42-121) 09/15/17 15:00 Ammonia 9.0 umol/L (7-35) 09/15/17 15:00 Total Creatine Kinase 18 IU/L (22-269) L 09/15/17 15:00 Troponin I < 0.04 ng/mL (<0.49) 09/15/17 15:00 Total Protein 7.2 g/dL (6.7-8.2) 09/15/17 15:00 Albumin 3.9 g/dL (3.2-5.5) 09/15/17 15:00 Globulin 3.3 g/dL (2.1-4.2) 09/15/17 15:00 Albumin/Globulin Ratio 1.2 (1.0-2.2) 09/15/17 15:00 Lipase 28 U/L (22-51) 09/15/17 15:00 Folate 3.20 ng/mL (5.90 - >24.8) L 09/18/17 09:50 TSH 1.91 uIU/mL (0.34-5.60) 09/15/17 15:00 Urine Color YELLOW 09/18/17 09:39 Urine Clarity CLEAR (CLEAR) 09/18/17 09:39 Urine pH 6.0 PH (5.0-7.5) 09/18/17 09:39 Ur Specific [place] 1.020 (1.002-1.030) 09/18/17 09:39 Urine Protein NEGATIVE mg/dL (NEGATIVE) 09/18/17 09:39 Urine Glucose (UA) NEGATIVE mg/dL (NEGATIVE) 09/18/17 09:39 Urine Ketones NEGATIVE mg/dL (NEGATIVE) 09/18/17 09:39 Urine Occult Blood NEGATIVE (NEGATIVE) 09/18/17 09:39 Urine Nitrite NEGATIVE (NEGATIVE) 09/18/17 09:39 Urine Bilirubin NEGATIVE (NEGATIVE) 09/18/17 09:39 Urine Urobilinogen 2 E.U./dL (NORMAL) H 09/18/17 09:39 Ur Leukocyte Esterase NEGATIVE (NEGATIVE) 09/18/17 09:39 Urine RBC 0-5 /HPF (0-5) 09/15/17 16:00 Urine WBC 4-5 /HPF (0-5) 09/15/17 16:00 Ur Squamous Epith Cells MOD Squamous (<= Few) H 09/15/17 16:00 Urine Bacteria Few /HPF (None Seen) 09/15/17 16:00 Urine Mucus Few Strands 09/15/17 16:00 Ur Microscopic Review NOT INDICATED 09/18/17 09:39 Urine Culture Comments NOT INDICATED 09/18/17 09:39 Salicylates < 6.0 mg/dL 09/15/17 15:00 Urine Opiates Screen NEGATIVE (NEGATIVE) 09/15/17 16:00 Ur Oxycodone Screen NEGATIVE (NEGATIVE) 09/15/17 16:00 Urine Methadone Screen NEGATIVE (NEGATIVE) 09/15/17 16:00 Ur Propoxyphene Screen NEGATIVE (NEGATIVE) 09/15/17 16:00 Acetaminophen < 10 ug/mL (10-30) L 09/15/17 15:00 Ur Barbiturates Screen NEGATIVE (NEGATIVE) 09/15/17 16:00 Ur Tricyclics Screen NEGATIVE (NEGATIVE) 09/15/17 16:00 Ur Phencyclidine Scrn NEGATIVE (NEGATIVE) 09/15/17 16:00 Ur Amphetamine Screen NEGATIVE (NEGATIVE) 09/15/17 16:00 U Methamphetamines Scrn NEGATIVE (NEGATIVE) 09/15/17 16:00 U Benzodiazepines Scrn NEGATIVE (NEGATIVE) 09/15/17 16:00 Urine Cocaine Screen NEGATIVE (NEGATIVE) 09/15/17 16:00 U Cannabinoids Screen NEGATIVE (NEGATIVE) 09/15/17 16:00 Ethyl Alcohol < 5.0 mg/dL 09/15/17 15:00 - Procedures Procedures: Procedures ESOPHAGOGASTRODUODENOSCOPY [EGD] W/CLOSED BIOPSY (02/12/14) EXCISION OF STOMACH, ENDO, DIAGN (08/26/17)
[2017-09-25] MEDS: LORazepam 0.5 MG TABLET PO PRN (20:02)
[2017-09-25] MEDS: DONEPEZIL 5 MG TABLET PO SCH (20:02)
[2017-09-26] MEDS: METOPROLOL TARTRATE 25 MG TABLET PO SCH ×2 (08:35→20:08)
[2017-09-26] MEDS: FOLIC ACID 1 MG TABLET PO SCH (08:35)
[2017-09-26] MEDS: POLYETHYLENE GLYCOL 3350 17 GM PACKET PO SCH (08:37)
--- NOTE | 2017-09-26 13:48 | PROVIDER PROGRESS NOTE ---
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 She does not understand her diagnoses. She is unaware of where she is. She does not have capacity to make safe decisions regarding her healthcare. Daughter is DPOA Social work is working to find the patient a Medicaid Bed for placement Continue Thiamine and Aricept. Start Folic acid Patient is pleasantly demented, no complaints. She is calm sitting in bed with her sister by the bed side. (2) Hypertension Assessment/Plan: On metoprolol BP controlled - Current Meds Current Meds: Current Medications Generic Name Dose Route Start Last Admin Trade Name Freq PRN Reason Stop Dose Admin Acetaminophen 650 mg 09/18/17 15:43 09/24/17 01:36 Tylenol PO 650 mg Q4HR PRN Administration Pain 1 to 4 Donepezil HCl 5 mg 09/18/17 21:00 09/25/17 20:02 Aricept PO 5 mg QPM NAYELI Administration Folic Acid 1 mg 09/21/17 14:00 09/26/17 08:35 PO 1 mg DAILY NAYELI Administration Lorazepam 1 mg 09/21/17 15:30 09/25/17 20:02 Ativan PO 1 mg Q6H PRN Administration Anxiety Metoprolol Tartrate 25 mg 09/22/17 08:00 09/26/17 08:35 Lopressor PO 25 mg BID NAYELI Administration Polyethylene Glycol 17 gm 09/19/17 09:00 09/26/17 08:37 Miralax PO Not Given DAILY NAYELI Promethazine HCl 12.5 mg 09/18/17 15:57 09/24/17 20:14 Phenergan PO 12.5 mg Q6H PRN Administration Nausea / Vomiting Zolpidem Tartrate 5 mg 09/21/17 15:30 09/24/17 01:36 Ambien PO 5 mg QPM PRN Administration Insomnia - Lab Result Fish Bone Diagrams: 09/15/17 15:00 09/15/17 15:00 - Additional Planning Condition/Complexity: Stable My Orders: My Active Orders 09/25/17 16:33 DVT Prophylaxis [RC] .ONCE Consult/Specialty: Other (SOcial work) Plan Discussed with:: Patient, Family Time Spent: 15-30 minutes Subjective - Subjective Patient Reports: Resting Comfortably, No Complaints (patient is pleasantly demented. Does not know why she is in the hospital but very calm and cooperative. Her sister is at the bedside.) Nursing Reports: No Complaints Objective Vital Signs: Vital Signs - 24 hr 09/25/17 09/26/17 09/26/17 16:31 00:06 08:34 Temperature 36.5 C 36.7 C Heart Rate [ 85 78 107 H Brachial] Respiratory 18 18 Rate Blood Pressure Blood Pressure 110/57 L 130/66 117/57 L [Right Brachial artery] O2 Saturation 96 100 09/26/17 08:35 Temperature Heart Rate [ Brachial] Respiratory Rate Blood Pressure 117/57 L Blood Pressure [Right Brachial artery] O2 Saturation Oxygen O2 Source Room air I&O (Last 24 Hrs): Intake and Output Totals x24h 09/24/17 09/25/17 09/26/17 23:59 23:59 22:59 Intake Total 820 460 400 Balance 820 460 400 General: Alert, Cooperative, No acute distress, Other (Oriented x2) HEENT: Atraumatic, PERRLA, EOMI, Mucous membr. moist/pink Neck: Supple, No JVD, No thyromegaly, +2 carotid pulse wo bruit, No LAD Lymphatic: no adenopathy Neuro: Alert, Disoriented, Non Focal, CN 2-12 Grossly Intact Cardiovascular: Regular rate, Normal S1, Normal S2, No murmurs Respiratory: Chest non-tender, No respiratory distress, Breath sounds nml Abdomen: Normal bowel sounds, Soft, No tenderness, No hepatospenomegaly Extremities: No clubbing, No cyanosis, No edema, Normal pulses Skin: No rashes, No breakdown - Results Results: Laboratory Results WBC 13.5 x10^3/uL (4.8-10.8) H 09/15/17 15:00 RBC 4.80 10^6/uL (4.20-5.40) 09/15/17 15:00 Hgb 15.0 g/dL (12.0-16.0) 09/15/17 15:00 Hct 44.5 % (37.0-47.0) 09/15/17 15:00 MCV 92.6 fL (81.0-99.0) 09/15/17 15:00 MCH 31.3 pg (27.0-31.0) H 09/15/17 15:00 MCHC 33.8 g/dL (32.0-36.0) 09/15/17 15:00 RDW 13.5 % (12.0-15.0) 09/15/17 15:00 Plt Count 294 10^3/uL (130-450) 09/15/17 15:00 MPV 7.3 fL (7.9-10.8) L 09/15/17 15:00 Neut # 10.8 10^3/uL (1.5-6.6) H 09/15/17 15:00 Lymph # 1.4 10^3/uL (1.5-3.5) L 09/15/17 15:00 [place] # 1.2 10^3/uL (0.0-1.0) H 09/15/17 15:00 Eos # 0.1 10^3/uL (0.0-0.7) 09/15/17 15:00 Baso # 0.0 10^3/uL (0.0-0.1) 09/15/17 15:00 Absolute Nucleated RBC 0.01 x10^3/uL 09/15/17 15:00 Nucleated RBC % 0.0 /100WBC 09/15/17 15:00 PT 11.6 secs (9.9-12.6) 09/15/17 15:00 INR 1.0 (0.8-1.2) 09/15/17 15:00 Sodium 135 mmol/L (135-145) 09/15/17 15:00 Potassium 3.4 mmol/L (3.5-5.0) L 09/15/17 15:00 Chloride 93 mmol/L (101-111) L 09/15/17 15:00 Carbon Dioxide 27 mmol/L (21-32) 09/15/17 15:00 Anion Gap 15.0 (6-13) H 09/15/17 15:00 BUN 15 mg/dL (6-20) 09/15/17 15:00 Creatinine 0.8 mg/dL (0.4-1.0) 09/15/17 15:00 Estimated GFR (MDRD) 71 (>89) L 09/15/17 15:00 Glucose 143 mg/dL (70-100) H 09/15/17 15:00 Calcium 9.8 mg/dL (8.5-10.3) 09/15/17 15:00 Magnesium 1.9 mg/dL (1.7-2.8) 09/15/17 15:00 Total Bilirubin 1.3 mg/dL (0.2-1.0) H 09/15/17 15:00 AST 24 IU/L (10-42) 09/15/17 15:00 ALT 17 IU/L (10-60) 09/15/17 15:00 Alkaline Phosphatase 72 IU/L (42-121) 09/15/17 15:00 Ammonia 9.0 umol/L (7-35) 09/15/17 15:00 Total Creatine Kinase 18 IU/L (22-269) L 09/15/17 15:00 Troponin I < 0.04 ng/mL (<0.49) 09/15/17 15:00 Total Protein 7.2 g/dL (6.7-8.2) 09/15/17 15:00 Albumin 3.9 g/dL (3.2-5.5) 09/15/17 15:00 Globulin 3.3 g/dL (2.1-4.2) 09/15/17 15:00 Albumin/Globulin Ratio 1.2 (1.0-2.2) 09/15/17 15:00 Lipase 28 U/L (22-51) 09/15/17 15:00 Folate 3.20 ng/mL (5.90 - >24.8) L 09/18/17 09:50 TSH 1.91 uIU/mL (0.34-5.60) 09/15/17 15:00 Urine Color YELLOW 09/18/17 09:39 Urine Clarity CLEAR (CLEAR) 09/18/17 09:39 Urine pH 6.0 PH (5.0-7.5) 09/18/17 09:39 Ur Specific [place] 1.020 (1.002-1.030) 09/18/17 09:39 Urine Protein NEGATIVE mg/dL (NEGATIVE) 09/18/17 09:39 Urine Glucose (UA) NEGATIVE mg/dL (NEGATIVE) 09/18/17 09:39 Urine Ketones NEGATIVE mg/dL (NEGATIVE) 09/18/17 09:39 Urine Occult Blood NEGATIVE (NEGATIVE) 09/18/17 09:39 Urine Nitrite NEGATIVE (NEGATIVE) 09/18/17 09:39 Urine Bilirubin NEGATIVE (NEGATIVE) 09/18/17 09:39 Urine Urobilinogen 2 E.U./dL (NORMAL) H 09/18/17 09:39 Ur Leukocyte Esterase NEGATIVE (NEGATIVE) 09/18/17 09:39 Urine RBC 0-5 /HPF (0-5) 09/15/17 16:00 Urine WBC 4-5 /HPF (0-5) 09/15/17 16:00 Ur Squamous Epith Cells MOD Squamous (<= Few) H 09/15/17 16:00 Urine Bacteria Few /HPF (None Seen) 09/15/17 16:00 Urine Mucus Few Strands 09/15/17 16:00 Ur Microscopic Review NOT INDICATED 09/18/17 09:39 Urine Culture Comments NOT INDICATED 09/18/17 09:39 Salicylates < 6.0 mg/dL 09/15/17 15:00 Urine Opiates Screen NEGATIVE (NEGATIVE) 09/15/17 16:00 Ur Oxycodone Screen NEGATIVE (NEGATIVE) 09/15/17 16:00 Urine Methadone Screen NEGATIVE (NEGATIVE) 09/15/17 16:00 Ur Propoxyphene Screen NEGATIVE (NEGATIVE) 09/15/17 16:00 Acetaminophen < 10 ug/mL (10-30) L 09/15/17 15:00 Ur Barbiturates Screen NEGATIVE (NEGATIVE) 09/15/17 16:00 Ur Tricyclics Screen NEGATIVE (NEGATIVE) 09/15/17 16:00 Ur Phencyclidine Scrn NEGATIVE (NEGATIVE) 09/15/17 16:00 Ur Amphetamine Screen NEGATIVE (NEGATIVE) 09/15/17 16:00 U Methamphetamines Scrn NEGATIVE (NEGATIVE) 09/15/17 16:00 U Benzodiazepines Scrn NEGATIVE (NEGATIVE) 09/15/17 16:00 Urine Cocaine Screen NEGATIVE (NEGATIVE) 09/15/17 16:00 U Cannabinoids Screen NEGATIVE (NEGATIVE) 09/15/17 16:00 Ethyl Alcohol < 5.0 mg/dL 09/15/17 15:00 - Procedures Procedures: Procedures ESOPHAGOGASTRODUODENOSCOPY [EGD] W/CLOSED BIOPSY (02/12/14) EXCISION OF STOMACH, ENDO, DIAGN (08/26/17)
[2017-09-26] MEDS: DONEPEZIL 5 MG TABLET PO SCH (20:08)
[2017-09-27] MEDS: ZOLPIDEM 5 MG TABLET PO PRN ×2 (00:04→23:56)
--- NOTE | 2017-09-27 08:56 | PROVIDER PROGRESS NOTE ---
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 She does not understand her diagnoses. She is unaware of where she is. She does not have capacity to make safe decisions regarding her healthcare. Daughter is DPOA Social work is working to find the patient a Medicaid Bed for placement Continue Thiamine and Aricept and Folic acid Patient is pleasantly demented, no complaints. Still awaiting placement (2) Hypertension Assessment/Plan: On metoprolol BP controlled - Current Meds Current Meds: Current Medications Generic Name Dose Route Start Last Admin Trade Name Freq PRN Reason Stop Dose Admin Acetaminophen 650 mg 09/18/17 15:43 09/24/17 01:36 Tylenol PO 650 mg Q4HR PRN Administration Pain 1 to 4 Donepezil HCl 5 mg 09/18/17 21:00 09/26/17 20:08 Aricept PO 5 mg QPM NAYELI Administration Folic Acid 1 mg 09/21/17 14:00 09/26/17 08:35 PO 1 mg DAILY NAYELI Administration Lorazepam 1 mg 09/21/17 15:30 09/25/17 20:02 Ativan PO 1 mg Q6H PRN Administration Anxiety Metoprolol Tartrate 25 mg 09/22/17 08:00 09/26/17 20:08 Lopressor PO 25 mg BID NAYELI Administration Polyethylene Glycol 17 gm 09/19/17 09:00 09/26/17 08:37 Miralax PO Not Given DAILY NAYELI Promethazine HCl 12.5 mg 09/18/17 15:57 09/24/17 20:14 Phenergan PO 12.5 mg Q6H PRN Administration Nausea / Vomiting Zolpidem Tartrate 5 mg 09/21/17 15:30 09/27/17 00:04 Ambien PO 5 mg QPM PRN Administration Insomnia - Lab Result Lab results reviewed: Yes Fish Bone Diagrams: 09/15/17 15:00 09/15/17 15:00 - Additional Planning Condition/Complexity: Stable Consult/Specialty: Other (Social work) Plan Discussed with:: Patient Time Spent: 15-30 minutes Subjective - Subjective Patient Reports: Resting Comfortably, No Complaints (Does not know where she is or why she is here. She is very pleasant and calm. She does not have any complaints.) Nursing Reports: No Complaints Objective Vital Signs: Vital Signs - 24 hr 09/26/17 09/26/17 09/26/17 13:59 16:21 20:08 Temperature 36.9 C 36.8 C Heart Rate [ 84 87 Brachial] Respiratory 18 20 Rate Blood Pressure 133/66 H Blood Pressure 129/53 L 134/69 H [Right Brachial artery] O2 Saturation 95 97 09/26/17 23:31 Temperature 36.6 C Heart Rate [ 83 Brachial] Respiratory 16 Rate Blood Pressure Blood Pressure 136/67 H [Right Brachial artery] O2 Saturation 98 Oxygen O2 Source Room air I&O (Last 24 Hrs): Intake and Output Totals x24h 09/26/17 09/26/17 09/27/17 00:59 23:59 23:59 Intake Total 90 Balance 90 General: Alert, Cooperative, No acute distress, Other (Oriented x1) Neck: Supple, No JVD, No thyromegaly, +2 carotid pulse wo bruit, No LAD Lymphatic: no adenopathy Neuro: Alert, Disoriented, Non Focal, CN 2-12 Grossly Intact Cardiovascular: Regular rate, Normal S1, Normal S2, No murmurs Respiratory: Chest non-tender, No respiratory distress, Breath sounds nml Abdomen: Normal bowel sounds, Soft, No tenderness, No hepatospenomegaly Extremities: No clubbing, No cyanosis, No edema, Normal pulses Skin: No rashes, No breakdown - Results Results: Laboratory Results WBC 13.5 x10^3/uL (4.8-10.8) H 09/15/17 15:00 RBC 4.80 10^6/uL (4.20-5.40) 09/15/17 15:00 Hgb 15.0 g/dL (12.0-16.0) 09/15/17 15:00 Hct 44.5 % (37.0-47.0) 09/15/17 15:00 MCV 92.6 fL (81.0-99.0) 09/15/17 15:00 MCH 31.3 pg (27.0-31.0) H 09/15/17 15:00 MCHC 33.8 g/dL (32.0-36.0) 09/15/17 15:00 RDW 13.5 % (12.0-15.0) 09/15/17 15:00 Plt Count 294 10^3/uL (130-450) 09/15/17 15:00 MPV 7.3 fL (7.9-10.8) L 09/15/17 15:00 Neut # 10.8 10^3/uL (1.5-6.6) H 09/15/17 15:00 Lymph # 1.4 10^3/uL (1.5-3.5) L 09/15/17 15:00 [place] # 1.2 10^3/uL (0.0-1.0) H 09/15/17 15:00 Eos # 0.1 10^3/uL (0.0-0.7) 09/15/17 15:00 Baso # 0.0 10^3/uL (0.0-0.1) 09/15/17 15:00 Absolute Nucleated RBC 0.01 x10^3/uL 09/15/17 15:00 Nucleated RBC % 0.0 /100WBC 09/15/17 15:00 PT 11.6 secs (9.9-12.6) 09/15/17 15:00 INR 1.0 (0.8-1.2) 09/15/17 15:00 Sodium 135 mmol/L (135-145) 09/15/17 15:00 Potassium 3.4 mmol/L (3.5-5.0) L 09/15/17 15:00 Chloride 93 mmol/L (101-111) L 09/15/17 15:00 Carbon Dioxide 27 mmol/L (21-32) 09/15/17 15:00 Anion Gap 15.0 (6-13) H 09/15/17 15:00 BUN 15 mg/dL (6-20) 09/15/17 15:00 Creatinine 0.8 mg/dL (0.4-1.0) 09/15/17 15:00 Estimated GFR (MDRD) 71 (>89) L 09/15/17 15:00 Glucose 143 mg/dL (70-100) H 09/15/17 15:00 Calcium 9.8 mg/dL (8.5-10.3) 09/15/17 15:00 Magnesium 1.9 mg/dL (1.7-2.8) 09/15/17 15:00 Total Bilirubin 1.3 mg/dL (0.2-1.0) H 09/15/17 15:00 AST 24 IU/L (10-42) 09/15/17 15:00 ALT 17 IU/L (10-60) 09/15/17 15:00 Alkaline Phosphatase 72 IU/L (42-121) 09/15/17 15:00 Ammonia 9.0 umol/L (7-35) 09/15/17 15:00 Total Creatine Kinase 18 IU/L (22-269) L 09/15/17 15:00 Troponin I < 0.04 ng/mL (<0.49) 09/15/17 15:00 Total Protein 7.2 g/dL (6.7-8.2) 09/15/17 15:00 Albumin 3.9 g/dL (3.2-5.5) 09/15/17 15:00 Globulin 3.3 g/dL (2.1-4.2) 09/15/17 15:00 Albumin/Globulin Ratio 1.2 (1.0-2.2) 09/15/17 15:00 Lipase 28 U/L (22-51) 09/15/17 15:00 Whole Bld Vitamin B1 >1200 nmol/L (78-185) H 09/18/17 09:50 Folate 3.20 ng/mL (5.90 - >24.8) L 09/18/17 09:50 TSH 1.91 uIU/mL (0.34-5.60) 09/15/17 15:00 Urine Color YELLOW 09/18/17 09:39 Urine Clarity CLEAR (CLEAR) 09/18/17 09:39 Urine pH 6.0 PH (5.0-7.5) 09/18/17 09:39 Ur Specific [place] 1.020 (1.002-1.030) 09/18/17 09:39 Urine Protein NEGATIVE mg/dL (NEGATIVE) 09/18/17 09:39 Urine Glucose (UA) NEGATIVE mg/dL (NEGATIVE) 09/18/17 09:39 Urine Ketones NEGATIVE mg/dL (NEGATIVE) 09/18/17 09:39 Urine Occult Blood NEGATIVE (NEGATIVE) 09/18/17 09:39 Urine Nitrite NEGATIVE (NEGATIVE) 09/18/17 09:39 Urine Bilirubin NEGATIVE (NEGATIVE) 09/18/17 09:39 Urine Urobilinogen 2 E.U./dL (NORMAL) H 09/18/17 09:39 Ur Leukocyte Esterase NEGATIVE (NEGATIVE) 09/18/17 09:39 Urine RBC 0-5 /HPF (0-5) 09/15/17 16:00 Urine WBC 4-5 /HPF (0-5) 09/15/17 16:00 Ur Squamous Epith Cells MOD Squamous (<= Few) H 09/15/17 16:00 Urine Bacteria Few /HPF (None Seen) 09/15/17 16:00 Urine Mucus Few Strands 09/15/17 16:00 Ur Microscopic Review NOT INDICATED 09/18/17 09:39 Urine Culture Comments NOT INDICATED 09/18/17 09:39 Salicylates < 6.0 mg/dL 09/15/17 15:00 Urine Opiates Screen NEGATIVE (NEGATIVE) 09/15/17 16:00 Ur Oxycodone Screen NEGATIVE (NEGATIVE) 09/15/17 16:00 Urine Methadone Screen NEGATIVE (NEGATIVE) 09/15/17 16:00 Ur Propoxyphene Screen NEGATIVE (NEGATIVE) 09/15/17 16:00 Acetaminophen < 10 ug/mL (10-30) L 09/15/17 15:00 Ur Barbiturates Screen NEGATIVE (NEGATIVE) 09/15/17 16:00 Ur Tricyclics Screen NEGATIVE (NEGATIVE) 09/15/17 16:00 Ur Phencyclidine Scrn NEGATIVE (NEGATIVE) 09/15/17 16:00 Ur Amphetamine Screen NEGATIVE (NEGATIVE) 09/15/17 16:00 U Methamphetamines Scrn NEGATIVE (NEGATIVE) 09/15/17 16:00 U Benzodiazepines Scrn NEGATIVE (NEGATIVE) 09/15/17 16:00 Urine Cocaine Screen NEGATIVE (NEGATIVE) 09/15/17 16:00 U Cannabinoids Screen NEGATIVE (NEGATIVE) 09/15/17 16:00 Ethyl Alcohol < 5.0 mg/dL 09/15/17 15:00 - Procedures Procedures: Procedures ESOPHAGOGASTRODUODENOSCOPY [EGD] W/CLOSED BIOPSY (02/12/14) EXCISION OF STOMACH, ENDO, DIAGN (08/26/17)
[2017-09-27] MEDS: FOLIC ACID 1 MG TABLET PO SCH (10:00)
[2017-09-27] MEDS: METOPROLOL TARTRATE 25 MG TABLET PO SCH ×2 (10:00→20:27)
[2017-09-27] MEDS: POLYETHYLENE GLYCOL 3350 17 GM PACKET PO SCH (10:42)
[2017-09-27] MEDS: DONEPEZIL 5 MG TABLET PO SCH (20:27)
[2017-09-27] MEDS: ACETAMINOPHEN 325 MG TABLET PO PRN (22:48)
[2017-09-28] MEDS: METOPROLOL TARTRATE 25 MG TABLET PO SCH ×2 (08:44→20:50)
[2017-09-28] MEDS: POLYETHYLENE GLYCOL 3350 17 GM PACKET PO SCH (08:44)
[2017-09-28] MEDS: FOLIC ACID 1 MG TABLET PO SCH (08:44)
--- NOTE | 2017-09-28 15:40 | PROVIDER PROGRESS NOTE ---
Assessment/Plan - Problem List (1) Dementia Qualifiers: Alzheimer's disease onset: unspecified onset Assessment/Plan: unchanged mental ststus Daughter will be making application for POA Social work is working on permanent placement (2) H. pylori infection Assessment/Plan: Treatment completed - Current Meds Current Meds: Current Medications Generic Name Dose Route Start Last Admin Trade Name Freq PRN Reason Stop Dose Admin Acetaminophen 650 mg 09/18/17 15:43 09/27/17 22:48 Tylenol PO 650 mg Q4HR PRN Administration Pain 1 to 4 Donepezil HCl 5 mg 09/18/17 21:00 09/27/17 20:27 Aricept PO 5 mg QPM NAYELI Administration Folic Acid 1 mg 09/21/17 14:00 09/28/17 08:44 PO 1 mg DAILY NAYELI Administration Lorazepam 1 mg 09/21/17 15:30 09/25/17 20:02 Ativan PO 1 mg Q6H PRN Administration Anxiety Metoprolol Tartrate 25 mg 09/22/17 08:00 09/28/17 08:44 Lopressor PO 25 mg BID NAYELI Administration Polyethylene Glycol 17 gm 09/19/17 09:00 09/28/17 08:44 Miralax PO Not Given DAILY NAYELI Promethazine HCl 12.5 mg 09/18/17 15:57 09/24/17 20:14 Phenergan PO 12.5 mg Q6H PRN Administration Nausea / Vomiting Zolpidem Tartrate 5 mg 09/21/17 15:30 09/27/17 23:56 Ambien PO 5 mg QPM PRN Administration Insomnia - Lab Result Fish Bone Diagrams: 09/15/17 15:00 09/15/17 15:00 Subjective - Subjective Patient Reports: No Complaints Nursing Reports: No Complaints Objective Vital Signs: Vital Signs - 24 hr 09/27/17 09/27/17 09/27/17 15:45 20:27 23:52 Temperature 36.7 C 36.7 C Heart Rate [ 86 77 Brachial] Respiratory 18 16 Rate Blood Pressure 138/66 H Blood Pressure 131/62 H 118/66 [Right Brachial artery] O2 Saturation 100 96 09/28/17 09/28/17 09/28/17 05:23 08:00 08:44 Temperature 36.5 C 36.5 C Heart Rate [ 79 93 Brachial] Respiratory 18 20 Rate Blood Pressure 129/63 Blood Pressure 129/63 117/68 [Right Brachial artery] O2 Saturation 97 98 Oxygen O2 Source Room air I&O (Last 24 Hrs): Intake and Output Totals x24h 09/26/17 09/27/17 09/28/17 23:59 23:59 23:59 Intake Total 1310 820 Balance 1310 820 General: No acute distress Neuro: Alert, Other (Disoriented) - Results Results: Laboratory Results WBC 13.5 x10^3/uL (4.8-10.8) H 09/15/17 15:00 RBC 4.80 10^6/uL (4.20-5.40) 09/15/17 15:00 Hgb 15.0 g/dL (12.0-16.0) 09/15/17 15:00 Hct 44.5 % (37.0-47.0) 09/15/17 15:00 MCV 92.6 fL (81.0-99.0) 09/15/17 15:00 MCH 31.3 pg (27.0-31.0) H 09/15/17 15:00 MCHC 33.8 g/dL (32.0-36.0) 09/15/17 15:00 RDW 13.5 % (12.0-15.0) 09/15/17 15:00 Plt Count 294 10^3/uL (130-450) 09/15/17 15:00 MPV 7.3 fL (7.9-10.8) L 09/15/17 15:00 Neut # 10.8 10^3/uL (1.5-6.6) H 09/15/17 15:00 Lymph # 1.4 10^3/uL (1.5-3.5) L 09/15/17 15:00 [place] # 1.2 10^3/uL (0.0-1.0) H 09/15/17 15:00 Eos # 0.1 10^3/uL (0.0-0.7) 09/15/17 15:00 Baso # 0.0 10^3/uL (0.0-0.1) 09/15/17 15:00 Absolute Nucleated RBC 0.01 x10^3/uL 09/15/17 15:00 Nucleated RBC % 0.0 /100WBC 09/15/17 15:00 PT 11.6 secs (9.9-12.6) 09/15/17 15:00 INR 1.0 (0.8-1.2) 09/15/17 15:00 Sodium 135 mmol/L (135-145) 09/15/17 15:00 Potassium 3.4 mmol/L (3.5-5.0) L 09/15/17 15:00 Chloride 93 mmol/L (101-111) L 09/15/17 15:00 Carbon Dioxide 27 mmol/L (21-32) 09/15/17 15:00 Anion Gap 15.0 (6-13) H 09/15/17 15:00 BUN 15 mg/dL (6-20) 09/15/17 15:00 Creatinine 0.8 mg/dL (0.4-1.0) 09/15/17 15:00 Estimated GFR (MDRD) 71 (>89) L 09/15/17 15:00 Glucose 143 mg/dL (70-100) H 09/15/17 15:00 Calcium 9.8 mg/dL (8.5-10.3) 09/15/17 15:00 Magnesium 1.9 mg/dL (1.7-2.8) 09/15/17 15:00 Total Bilirubin 1.3 mg/dL (0.2-1.0) H 09/15/17 15:00 AST 24 IU/L (10-42) 09/15/17 15:00 ALT 17 IU/L (10-60) 09/15/17 15:00 Alkaline Phosphatase 72 IU/L (42-121) 09/15/17 15:00 Ammonia 9.0 umol/L (7-35) 09/15/17 15:00 Total Creatine Kinase 18 IU/L (22-269) L 09/15/17 15:00 Troponin I < 0.04 ng/mL (<0.49) 09/15/17 15:00 Total Protein 7.2 g/dL (6.7-8.2) 09/15/17 15:00 Albumin 3.9 g/dL (3.2-5.5) 09/15/17 15:00 Globulin 3.3 g/dL (2.1-4.2) 09/15/17 15:00 Albumin/Globulin Ratio 1.2 (1.0-2.2) 09/15/17 15:00 Lipase 28 U/L (22-51) 09/15/17 15:00 Whole Bld Vitamin B1 >1200 nmol/L (78-185) H 09/18/17 09:50 Folate 3.20 ng/mL (5.90 - >24.8) L 09/18/17 09:50 TSH 1.91 uIU/mL (0.34-5.60) 09/15/17 15:00 Urine Color YELLOW 09/18/17 09:39 Urine Clarity CLEAR (CLEAR) 09/18/17 09:39 Urine pH 6.0 PH (5.0-7.5) 09/18/17 09:39 Ur Specific [place] 1.020 (1.002-1.030) 09/18/17 09:39 Urine Protein NEGATIVE mg/dL (NEGATIVE) 09/18/17 09:39 Urine Glucose (UA) NEGATIVE mg/dL (NEGATIVE) 09/18/17 09:39 Urine Ketones NEGATIVE mg/dL (NEGATIVE) 09/18/17 09:39 Urine Occult Blood NEGATIVE (NEGATIVE) 09/18/17 09:39 Urine Nitrite NEGATIVE (NEGATIVE) 09/18/17 09:39 Urine Bilirubin NEGATIVE (NEGATIVE) 09/18/17 09:39 Urine Urobilinogen 2 E.U./dL (NORMAL) H 09/18/17 09:39 Ur Leukocyte Esterase NEGATIVE (NEGATIVE) 09/18/17 09:39 Urine RBC 0-5 /HPF (0-5) 09/15/17 16:00 Urine WBC 4-5 /HPF (0-5) 09/15/17 16:00 Ur Squamous Epith Cells MOD Squamous (<= Few) H 09/15/17 16:00 Urine Bacteria Few /HPF (None Seen) 09/15/17 16:00 Urine Mucus Few Strands 09/15/17 16:00 Ur Microscopic Review NOT INDICATED 09/18/17 09:39 Urine Culture Comments NOT INDICATED 09/18/17 09:39 Salicylates < 6.0 mg/dL 09/15/17 15:00 Urine Opiates Screen NEGATIVE (NEGATIVE) 09/15/17 16:00 Ur Oxycodone Screen NEGATIVE (NEGATIVE) 09/15/17 16:00 Urine Methadone Screen NEGATIVE (NEGATIVE) 09/15/17 16:00 Ur Propoxyphene Screen NEGATIVE (NEGATIVE) 09/15/17 16:00 Acetaminophen < 10 ug/mL (10-30) L 09/15/17 15:00 Ur Barbiturates Screen NEGATIVE (NEGATIVE) 09/15/17 16:00 Ur Tricyclics Screen NEGATIVE (NEGATIVE) 09/15/17 16:00 Ur Phencyclidine Scrn NEGATIVE (NEGATIVE) 09/15/17 16:00 Ur Amphetamine Screen NEGATIVE (NEGATIVE) 09/15/17 16:00 U Methamphetamines Scrn NEGATIVE (NEGATIVE) 09/15/17 16:00 U Benzodiazepines Scrn NEGATIVE (NEGATIVE) 09/15/17 16:00 Urine Cocaine Screen NEGATIVE (NEGATIVE) 09/15/17 16:00 U Cannabinoids Screen NEGATIVE (NEGATIVE) 09/15/17 16:00 Ethyl Alcohol < 5.0 mg/dL 09/15/17 15:00 - Procedures Procedures: Procedures ESOPHAGOGASTRODUODENOSCOPY [EGD] W/CLOSED BIOPSY (02/12/14) EXCISION OF STOMACH, ENDO, DIAGN (08/26/17)
[2017-09-28] MEDS: DONEPEZIL 5 MG TABLET PO SCH (20:50)
[2017-09-28] MEDS: ZOLPIDEM 5 MG TABLET PO PRN (23:28)
[2017-09-29] MEDS: METOPROLOL TARTRATE 25 MG TABLET PO SCH ×2 (09:01→20:20)
[2017-09-29] MEDS: POLYETHYLENE GLYCOL 3350 17 GM PACKET PO SCH (09:02)
[2017-09-29] MEDS: FOLIC ACID 1 MG TABLET PO SCH (09:02)
--- NOTE | 2017-09-29 12:27 | PROVIDER PROGRESS NOTE ---
Assessment/Plan - Problem List (1) Dementia Qualifiers: Alzheimer's disease onset: unspecified onset Assessment/Plan: Continue to work toward permanent NH placement. - Current Meds Current Meds: Current Medications Generic Name Dose Route Start Last Admin Trade Name Freq PRN Reason Stop Dose Admin Acetaminophen 650 mg 09/18/17 15:43 09/27/17 22:48 Tylenol PO 650 mg Q4HR PRN Administration Pain 1 to 4 Donepezil HCl 5 mg 09/18/17 21:00 09/28/17 20:50 Aricept PO 5 mg QPM NAYELI Administration Folic Acid 1 mg 09/21/17 14:00 09/29/17 09:02 PO 1 mg DAILY NAYELI Administration Lorazepam 1 mg 09/21/17 15:30 09/25/17 20:02 Ativan PO 1 mg Q6H PRN Administration Anxiety Metoprolol Tartrate 25 mg 09/22/17 08:00 09/29/17 09:01 Lopressor PO 25 mg BID NAYELI Administration Polyethylene Glycol 17 gm 09/19/17 09:00 09/29/17 09:02 Miralax PO Not Given DAILY NAYELI Promethazine HCl 12.5 mg 09/18/17 15:57 09/24/17 20:14 Phenergan PO 12.5 mg Q6H PRN Administration Nausea / Vomiting Zolpidem Tartrate 5 mg 09/21/17 15:30 09/28/17 23:28 Ambien PO 5 mg QPM PRN Administration Insomnia - Lab Result Fish Bone Diagrams: 09/15/17 15:00 09/15/17 15:00 Subjective - Subjective Patient Reports: No Complaints Nursing Reports: No Complaints Objective Vital Signs: Vital Signs - 24 hr 09/28/17 09/28/17 09/28/17 15:58 20:50 23:52 Temperature 36.6 C 36.8 C Heart Rate [ 85 84 Brachial] Respiratory 18 18 Rate Blood Pressure 136/62 H Blood Pressure 134/61 H 128/68 [Right Brachial artery] O2 Saturation 97 97 09/29/17 09/29/17 09/29/17 05:29 08:00 09:01 Temperature 36.5 C 36.2 C L Heart Rate [ 94 105 H Brachial] Respiratory 18 20 Rate Blood Pressure 125/68 Blood Pressure 138/66 H 125/68 [Right Brachial artery] O2 Saturation 97 98 Oxygen O2 Source Room air I&O (Last 24 Hrs): Intake and Output Totals x24h 09/27/17 09/28/17 09/29/17 23:59 23:59 23:59 Intake Total 1310 1780 890 Balance 1310 1780 890 General: Alert, Other (Same disorientation and clinical exam) HEENT: Mucous membr. moist/pink Neck: Supple Neuro: Disoriented Cardiovascular: Regular rate Respiratory: No respiratory distress Extremities: No edema - Results Results: Laboratory Results WBC 13.5 x10^3/uL (4.8-10.8) H 09/15/17 15:00 RBC 4.80 10^6/uL (4.20-5.40) 09/15/17 15:00 Hgb 15.0 g/dL (12.0-16.0) 09/15/17 15:00 Hct 44.5 % (37.0-47.0) 09/15/17 15:00 MCV 92.6 fL (81.0-99.0) 09/15/17 15:00 MCH 31.3 pg (27.0-31.0) H 09/15/17 15:00 MCHC 33.8 g/dL (32.0-36.0) 09/15/17 15:00 RDW 13.5 % (12.0-15.0) 09/15/17 15:00 Plt Count 294 10^3/uL (130-450) 09/15/17 15:00 MPV 7.3 fL (7.9-10.8) L 09/15/17 15:00 Neut # 10.8 10^3/uL (1.5-6.6) H 09/15/17 15:00 Lymph # 1.4 10^3/uL (1.5-3.5) L 09/15/17 15:00 [place] # 1.2 10^3/uL (0.0-1.0) H 09/15/17 15:00 Eos # 0.1 10^3/uL (0.0-0.7) 09/15/17 15:00 Baso # 0.0 10^3/uL (0.0-0.1) 09/15/17 15:00 Absolute Nucleated RBC 0.01 x10^3/uL 09/15/17 15:00 Nucleated RBC % 0.0 /100WBC 09/15/17 15:00 PT 11.6 secs (9.9-12.6) 09/15/17 15:00 INR 1.0 (0.8-1.2) 09/15/17 15:00 Sodium 135 mmol/L (135-145) 09/15/17 15:00 Potassium 3.4 mmol/L (3.5-5.0) L 09/15/17 15:00 Chloride 93 mmol/L (101-111) L 09/15/17 15:00 Carbon Dioxide 27 mmol/L (21-32) 09/15/17 15:00 Anion Gap 15.0 (6-13) H 09/15/17 15:00 BUN 15 mg/dL (6-20) 09/15/17 15:00 Creatinine 0.8 mg/dL (0.4-1.0) 09/15/17 15:00 Estimated GFR (MDRD) 71 (>89) L 09/15/17 15:00 Glucose 143 mg/dL (70-100) H 09/15/17 15:00 Calcium 9.8 mg/dL (8.5-10.3) 09/15/17 15:00 Magnesium 1.9 mg/dL (1.7-2.8) 09/15/17 15:00 Total Bilirubin 1.3 mg/dL (0.2-1.0) H 09/15/17 15:00 AST 24 IU/L (10-42) 09/15/17 15:00 ALT 17 IU/L (10-60) 09/15/17 15:00 Alkaline Phosphatase 72 IU/L (42-121) 09/15/17 15:00 Ammonia 9.0 umol/L (7-35) 09/15/17 15:00 Total Creatine Kinase 18 IU/L (22-269) L 09/15/17 15:00 Troponin I < 0.04 ng/mL (<0.49) 09/15/17 15:00 Total Protein 7.2 g/dL (6.7-8.2) 09/15/17 15:00 Albumin 3.9 g/dL (3.2-5.5) 09/15/17 15:00 Globulin 3.3 g/dL (2.1-4.2) 09/15/17 15:00 Albumin/Globulin Ratio 1.2 (1.0-2.2) 09/15/17 15:00 Lipase 28 U/L (22-51) 09/15/17 15:00 Whole Bld Vitamin B1 >1200 nmol/L (78-185) H 09/18/17 09:50 Folate 3.20 ng/mL (5.90 - >24.8) L 09/18/17 09:50 TSH 1.91 uIU/mL (0.34-5.60) 09/15/17 15:00 Urine Color YELLOW 09/18/17 09:39 Urine Clarity CLEAR (CLEAR) 09/18/17 09:39 Urine pH 6.0 PH (5.0-7.5) 09/18/17 09:39 Ur Specific [place] 1.020 (1.002-1.030) 09/18/17 09:39 Urine Protein NEGATIVE mg/dL (NEGATIVE) 09/18/17 09:39 Urine Glucose (UA) NEGATIVE mg/dL (NEGATIVE) 09/18/17 09:39 Urine Ketones NEGATIVE mg/dL (NEGATIVE) 09/18/17 09:39 Urine Occult Blood NEGATIVE (NEGATIVE) 09/18/17 09:39 Urine Nitrite NEGATIVE (NEGATIVE) 09/18/17 09:39 Urine Bilirubin NEGATIVE (NEGATIVE) 09/18/17 09:39 Urine Urobilinogen 2 E.U./dL (NORMAL) H 09/18/17 09:39 Ur Leukocyte Esterase NEGATIVE (NEGATIVE) 09/18/17 09:39 Urine RBC 0-5 /HPF (0-5) 09/15/17 16:00 Urine WBC 4-5 /HPF (0-5) 09/15/17 16:00 Ur Squamous Epith Cells MOD Squamous (<= Few) H 09/15/17 16:00 Urine Bacteria Few /HPF (None Seen) 09/15/17 16:00 Urine Mucus Few Strands 09/15/17 16:00 Ur Microscopic Review NOT INDICATED 09/18/17 09:39 Urine Culture Comments NOT INDICATED 09/18/17 09:39 Salicylates < 6.0 mg/dL 09/15/17 15:00 Urine Opiates Screen NEGATIVE (NEGATIVE) 09/15/17 16:00 Ur Oxycodone Screen NEGATIVE (NEGATIVE) 09/15/17 16:00 Urine Methadone Screen NEGATIVE (NEGATIVE) 09/15/17 16:00 Ur Propoxyphene Screen NEGATIVE (NEGATIVE) 09/15/17 16:00 Acetaminophen < 10 ug/mL (10-30) L 09/15/17 15:00 Ur Barbiturates Screen NEGATIVE (NEGATIVE) 09/15/17 16:00 Ur Tricyclics Screen NEGATIVE (NEGATIVE) 09/15/17 16:00 Ur Phencyclidine Scrn NEGATIVE (NEGATIVE) 09/15/17 16:00 Ur Amphetamine Screen NEGATIVE (NEGATIVE) 09/15/17 16:00 U Methamphetamines Scrn NEGATIVE (NEGATIVE) 09/15/17 16:00 U Benzodiazepines Scrn NEGATIVE (NEGATIVE) 09/15/17 16:00 Urine Cocaine Screen NEGATIVE (NEGATIVE) 09/15/17 16:00 U Cannabinoids Screen NEGATIVE (NEGATIVE) 09/15/17 16:00 Ethyl Alcohol < 5.0 mg/dL 09/15/17 15:00 - Procedures Procedures: Procedures ESOPHAGOGASTRODUODENOSCOPY [EGD] W/CLOSED BIOPSY (02/12/14) EXCISION OF STOMACH, ENDO, DIAGN (08/26/17)
[2017-09-29] MEDS: DONEPEZIL 5 MG TABLET PO SCH (20:20)
[2017-09-29] MEDS: ACETAMINOPHEN 325 MG TABLET PO PRN (20:21)
[2017-09-30] MEDS: ZOLPIDEM 5 MG TABLET PO PRN ×2 (01:04→20:21)
[2017-09-30] MEDS: FOLIC ACID 1 MG TABLET PO SCH (10:12)
[2017-09-30] MEDS: METOPROLOL TARTRATE 25 MG TABLET PO SCH ×2 (10:12→20:21)
[2017-09-30] MEDS: POLYETHYLENE GLYCOL 3350 17 GM PACKET PO SCH (10:15)
--- NOTE | 2017-09-30 14:51 | PROVIDER PROGRESS NOTE ---
Assessment/Plan - Problem List (1) Dementia Qualifiers: Alzheimer's disease onset: unspecified onset Assessment/Plan: Awaiting placement fo marked disability due to dementia. - Current Meds Current Meds: Current Medications Generic Name Dose Route Start Last Admin Trade Name Freq PRN Reason Stop Dose Admin Acetaminophen 650 mg 09/18/17 15:43 09/29/17 20:21 Tylenol PO 650 mg Q4HR PRN Administration Pain 1 to 4 Donepezil HCl 5 mg 09/18/17 21:00 09/29/17 20:20 Aricept PO 5 mg QPM NAYELI Administration Folic Acid 1 mg 09/21/17 14:00 09/30/17 10:12 PO 1 mg DAILY NAYELI Administration Lorazepam 1 mg 09/21/17 15:30 09/25/17 20:02 Ativan PO 1 mg Q6H PRN Administration Anxiety Metoprolol Tartrate 25 mg 09/22/17 08:00 09/30/17 10:12 Lopressor PO 25 mg BID NAYELI Administration Polyethylene Glycol 17 gm 09/19/17 09:00 09/30/17 10:15 Miralax PO Not Given DAILY NAYELI Promethazine HCl 12.5 mg 09/18/17 15:57 09/24/17 20:14 Phenergan PO 12.5 mg Q6H PRN Administration Nausea / Vomiting Zolpidem Tartrate 5 mg 09/21/17 15:30 09/30/17 01:04 Ambien PO 5 mg QPM PRN Administration Insomnia - Lab Result Fish Bone Diagrams: 09/15/17 15:00 09/15/17 15:00 Subjective - Subjective Patient Reports: No Complaints Nursing Reports: No Complaints Objective Vital Signs: Vital Signs - 24 hr 09/29/17 09/29/17 09/30/17 16:00 20:20 00:00 Temperature 36.5 C 36.2 C L Heart Rate [ 87 74 Brachial] Respiratory 18 18 Rate Blood Pressure 166/72 H Blood Pressure 113/68 132/73 H [Right Brachial artery] O2 Saturation 96 100 09/30/17 09/30/17 09/30/17 07:47 10:12 12:16 Temperature 36.6 C Heart Rate [ 89 89 Brachial] Respiratory 18 Rate Blood Pressure 121/50 L Blood Pressure 144/66 H 121/72 [Right Brachial artery] O2 Saturation 94 Oxygen O2 Source Room air I&O (Last 24 Hrs): Intake and Output Totals x24h 09/28/17 09/29/17 09/30/17 23:59 23:59 23:59 Intake Total 1780 1540 900 Output Total 2 Balance 1780 1538 900 General: Alert HEENT: Mucous membr. moist/pink Respiratory: No respiratory distress Extremities: No edema - Results Results: Laboratory Results WBC 13.5 x10^3/uL (4.8-10.8) H 09/15/17 15:00 RBC 4.80 10^6/uL (4.20-5.40) 09/15/17 15:00 Hgb 15.0 g/dL (12.0-16.0) 09/15/17 15:00 Hct 44.5 % (37.0-47.0) 09/15/17 15:00 MCV 92.6 fL (81.0-99.0) 09/15/17 15:00 MCH 31.3 pg (27.0-31.0) H 09/15/17 15:00 MCHC 33.8 g/dL (32.0-36.0) 09/15/17 15:00 RDW 13.5 % (12.0-15.0) 09/15/17 15:00 Plt Count 294 10^3/uL (130-450) 09/15/17 15:00 MPV 7.3 fL (7.9-10.8) L 09/15/17 15:00 Neut # 10.8 10^3/uL (1.5-6.6) H 09/15/17 15:00 Lymph # 1.4 10^3/uL (1.5-3.5) L 09/15/17 15:00 [place] # 1.2 10^3/uL (0.0-1.0) H 09/15/17 15:00 Eos # 0.1 10^3/uL (0.0-0.7) 09/15/17 15:00 Baso # 0.0 10^3/uL (0.0-0.1) 09/15/17 15:00 Absolute Nucleated RBC 0.01 x10^3/uL 09/15/17 15:00 Nucleated RBC % 0.0 /100WBC 09/15/17 15:00 PT 11.6 secs (9.9-12.6) 09/15/17 15:00 INR 1.0 (0.8-1.2) 09/15/17 15:00 Sodium 135 mmol/L (135-145) 09/15/17 15:00 Potassium 3.4 mmol/L (3.5-5.0) L 09/15/17 15:00 Chloride 93 mmol/L (101-111) L 09/15/17 15:00 Carbon Dioxide 27 mmol/L (21-32) 09/15/17 15:00 Anion Gap 15.0 (6-13) H 09/15/17 15:00 BUN 15 mg/dL (6-20) 09/15/17 15:00 Creatinine 0.8 mg/dL (0.4-1.0) 09/15/17 15:00 Estimated GFR (MDRD) 71 (>89) L 09/15/17 15:00 Glucose 143 mg/dL (70-100) H 09/15/17 15:00 Calcium 9.8 mg/dL (8.5-10.3) 09/15/17 15:00 Magnesium 1.9 mg/dL (1.7-2.8) 09/15/17 15:00 Total Bilirubin 1.3 mg/dL (0.2-1.0) H 09/15/17 15:00 AST 24 IU/L (10-42) 09/15/17 15:00 ALT 17 IU/L (10-60) 09/15/17 15:00 Alkaline Phosphatase 72 IU/L (42-121) 09/15/17 15:00 Ammonia 9.0 umol/L (7-35) 09/15/17 15:00 Total Creatine Kinase 18 IU/L (22-269) L 09/15/17 15:00 Troponin I < 0.04 ng/mL (<0.49) 09/15/17 15:00 Total Protein 7.2 g/dL (6.7-8.2) 09/15/17 15:00 Albumin 3.9 g/dL (3.2-5.5) 09/15/17 15:00 Globulin 3.3 g/dL (2.1-4.2) 09/15/17 15:00 Albumin/Globulin Ratio 1.2 (1.0-2.2) 09/15/17 15:00 Lipase 28 U/L (22-51) 09/15/17 15:00 Whole Bld Vitamin B1 >1200 nmol/L (78-185) H 09/18/17 09:50 Folate 3.20 ng/mL (5.90 - >24.8) L 09/18/17 09:50 TSH 1.91 uIU/mL (0.34-5.60) 09/15/17 15:00 Urine Color YELLOW 09/18/17 09:39 Urine Clarity CLEAR (CLEAR) 09/18/17 09:39 Urine pH 6.0 PH (5.0-7.5) 09/18/17 09:39 Ur Specific [place] 1.020 (1.002-1.030) 09/18/17 09:39 Urine Protein NEGATIVE mg/dL (NEGATIVE) 09/18/17 09:39 Urine Glucose (UA) NEGATIVE mg/dL (NEGATIVE) 09/18/17 09:39 Urine Ketones NEGATIVE mg/dL (NEGATIVE) 09/18/17 09:39 Urine Occult Blood NEGATIVE (NEGATIVE) 09/18/17 09:39 Urine Nitrite NEGATIVE (NEGATIVE) 09/18/17 09:39 Urine Bilirubin NEGATIVE (NEGATIVE) 09/18/17 09:39 Urine Urobilinogen 2 E.U./dL (NORMAL) H 09/18/17 09:39 Ur Leukocyte Esterase NEGATIVE (NEGATIVE) 09/18/17 09:39 Urine RBC 0-5 /HPF (0-5) 09/15/17 16:00 Urine WBC 4-5 /HPF (0-5) 09/15/17 16:00 Ur Squamous Epith Cells MOD Squamous (<= Few) H 09/15/17 16:00 Urine Bacteria Few /HPF (None Seen) 09/15/17 16:00 Urine Mucus Few Strands 09/15/17 16:00 Ur Microscopic Review NOT INDICATED 09/18/17 09:39 Urine Culture Comments NOT INDICATED 09/18/17 09:39 Salicylates < 6.0 mg/dL 09/15/17 15:00 Urine Opiates Screen NEGATIVE (NEGATIVE) 09/15/17 16:00 Ur Oxycodone Screen NEGATIVE (NEGATIVE) 09/15/17 16:00 Urine Methadone Screen NEGATIVE (NEGATIVE) 09/15/17 16:00 Ur Propoxyphene Screen NEGATIVE (NEGATIVE) 09/15/17 16:00 Acetaminophen < 10 ug/mL (10-30) L 09/15/17 15:00 Ur Barbiturates Screen NEGATIVE (NEGATIVE) 09/15/17 16:00 Ur Tricyclics Screen NEGATIVE (NEGATIVE) 09/15/17 16:00 Ur Phencyclidine Scrn NEGATIVE (NEGATIVE) 09/15/17 16:00 Ur Amphetamine Screen NEGATIVE (NEGATIVE) 09/15/17 16:00 U Methamphetamines Scrn NEGATIVE (NEGATIVE) 09/15/17 16:00 U Benzodiazepines Scrn NEGATIVE (NEGATIVE) 09/15/17 16:00 Urine Cocaine Screen NEGATIVE (NEGATIVE) 09/15/17 16:00 U Cannabinoids Screen NEGATIVE (NEGATIVE) 09/15/17 16:00 Ethyl Alcohol < 5.0 mg/dL 09/15/17 15:00 - Procedures Procedures: Procedures ESOPHAGOGASTRODUODENOSCOPY [EGD] W/CLOSED BIOPSY (02/12/14) EXCISION OF STOMACH, ENDO, DIAGN (08/26/17)
[2017-09-30] MEDS: ACETAMINOPHEN 325 MG TABLET PO PRN (20:21)
[2017-09-30] MEDS: LORazepam 0.5 MG TABLET PO PRN (20:21)
[2017-09-30] MEDS: DONEPEZIL 5 MG TABLET PO SCH (20:21)
[2017-10-01] MEDS: FOLIC ACID 1 MG TABLET PO SCH (10:51)
[2017-10-01] MEDS: POLYETHYLENE GLYCOL 3350 17 GM PACKET PO SCH (10:51)
[2017-10-01] MEDS: METOPROLOL TARTRATE 25 MG TABLET PO SCH ×2 (10:52→20:24)
[2017-10-01] MEDS: ACETAMINOPHEN 325 MG TABLET PO PRN ×2 (12:28→20:24)
--- NOTE | 2017-10-01 17:44 | PROVIDER PROGRESS NOTE ---
Assessment/Plan - Problem List (1) Dementia Qualifiers: Alzheimer's disease onset: unspecified onset Assessment/Plan: Clinically stable except for dementia. Awaiting placement - Current Meds Current Meds: Current Medications Generic Name Dose Route Start Last Admin Trade Name Freq PRN Reason Stop Dose Admin Acetaminophen 650 mg 09/18/17 15:43 10/01/17 12:28 Tylenol PO 650 mg Q4HR PRN Administration Pain 1 to 4 Donepezil HCl 5 mg 09/18/17 21:00 09/30/17 20:21 Aricept PO 5 mg QPM NAYELI Administration Folic Acid 1 mg 09/21/17 14:00 10/01/17 10:51 PO 1 mg DAILY NAYELI Administration Lorazepam 1 mg 09/21/17 15:30 09/30/17 20:21 Ativan PO 1 mg Q6H PRN Administration Anxiety Metoprolol Tartrate 25 mg 09/22/17 08:00 10/01/17 10:52 Lopressor PO 25 mg BID NAYELI Administration Polyethylene Glycol 17 gm 09/19/17 09:00 10/01/17 10:51 Miralax PO 17 gm DAILY NAYELI Administration Promethazine HCl 12.5 mg 09/18/17 15:57 09/24/17 20:14 Phenergan PO 12.5 mg Q6H PRN Administration Nausea / Vomiting Zolpidem Tartrate 5 mg 09/21/17 15:30 09/30/17 20:21 Ambien PO 5 mg QPM PRN Administration Insomnia - Lab Result Fish Bone Diagrams: 09/15/17 15:00 09/15/17 15:00 Subjective - Subjective Patient Reports: No Complaints Objective Vital Signs: Vital Signs - 24 hr 09/30/17 10/01/17 10/01/17 23:19 07:45 10:52 Temperature 36.3 C L 36.5 C Heart Rate [ 81 83 Brachial] Respiratory 16 12 Rate Blood Pressure 112/57 L Blood Pressure 142/64 H 130/58 L [Right Brachial artery] O2 Saturation 98 96 10/01/17 16:00 Temperature 36.3 C L Heart Rate [ 84 Brachial] Respiratory 19 Rate Blood Pressure Blood Pressure 133/59 H [Right Brachial artery] O2 Saturation 100 Oxygen O2 Source Room air I&O (Last 24 Hrs): Intake and Output Totals x24h 09/29/17 09/30/17 10/01/17 23:59 23:59 23:59 Intake Total 1540 1580 1280 Output Total 2 Balance 1538 1580 1280 - Results Results: Laboratory Results WBC 13.5 x10^3/uL (4.8-10.8) H 09/15/17 15:00 RBC 4.80 10^6/uL (4.20-5.40) 09/15/17 15:00 Hgb 15.0 g/dL (12.0-16.0) 09/15/17 15:00 Hct 44.5 % (37.0-47.0) 09/15/17 15:00 MCV 92.6 fL (81.0-99.0) 09/15/17 15:00 MCH 31.3 pg (27.0-31.0) H 09/15/17 15:00 MCHC 33.8 g/dL (32.0-36.0) 09/15/17 15:00 RDW 13.5 % (12.0-15.0) 09/15/17 15:00 Plt Count 294 10^3/uL (130-450) 09/15/17 15:00 MPV 7.3 fL (7.9-10.8) L 09/15/17 15:00 Neut # 10.8 10^3/uL (1.5-6.6) H 09/15/17 15:00 Lymph # 1.4 10^3/uL (1.5-3.5) L 09/15/17 15:00 [place] # 1.2 10^3/uL (0.0-1.0) H 09/15/17 15:00 Eos # 0.1 10^3/uL (0.0-0.7) 09/15/17 15:00 Baso # 0.0 10^3/uL (0.0-0.1) 09/15/17 15:00 Absolute Nucleated RBC 0.01 x10^3/uL 09/15/17 15:00 Nucleated RBC % 0.0 /100WBC 09/15/17 15:00 PT 11.6 secs (9.9-12.6) 09/15/17 15:00 INR 1.0 (0.8-1.2) 09/15/17 15:00 Sodium 135 mmol/L (135-145) 09/15/17 15:00 Potassium 3.4 mmol/L (3.5-5.0) L 09/15/17 15:00 Chloride 93 mmol/L (101-111) L 09/15/17 15:00 Carbon Dioxide 27 mmol/L (21-32) 09/15/17 15:00 Anion Gap 15.0 (6-13) H 09/15/17 15:00 BUN 15 mg/dL (6-20) 09/15/17 15:00 Creatinine 0.8 mg/dL (0.4-1.0) 09/15/17 15:00 Estimated GFR (MDRD) 71 (>89) L 09/15/17 15:00 Glucose 143 mg/dL (70-100) H 09/15/17 15:00 Calcium 9.8 mg/dL (8.5-10.3) 09/15/17 15:00 Magnesium 1.9 mg/dL (1.7-2.8) 09/15/17 15:00 Total Bilirubin 1.3 mg/dL (0.2-1.0) H 09/15/17 15:00 AST 24 IU/L (10-42) 09/15/17 15:00 ALT 17 IU/L (10-60) 09/15/17 15:00 Alkaline Phosphatase 72 IU/L (42-121) 09/15/17 15:00 Ammonia 9.0 umol/L (7-35) 09/15/17 15:00 Total Creatine Kinase 18 IU/L (22-269) L 09/15/17 15:00 Troponin I < 0.04 ng/mL (<0.49) 09/15/17 15:00 Total Protein 7.2 g/dL (6.7-8.2) 09/15/17 15:00 Albumin 3.9 g/dL (3.2-5.5) 09/15/17 15:00 Globulin 3.3 g/dL (2.1-4.2) 09/15/17 15:00 Albumin/Globulin Ratio 1.2 (1.0-2.2) 09/15/17 15:00 Lipase 28 U/L (22-51) 09/15/17 15:00 Whole Bld Vitamin B1 >1200 nmol/L (78-185) H 09/18/17 09:50 Folate 3.20 ng/mL (5.90 - >24.8) L 09/18/17 09:50 TSH 1.91 uIU/mL (0.34-5.60) 09/15/17 15:00 Urine Color YELLOW 09/18/17 09:39 Urine Clarity CLEAR (CLEAR) 09/18/17 09:39 Urine pH 6.0 PH (5.0-7.5) 09/18/17 09:39 Ur Specific [place] 1.020 (1.002-1.030) 09/18/17 09:39 Urine Protein NEGATIVE mg/dL (NEGATIVE) 09/18/17 09:39 Urine Glucose (UA) NEGATIVE mg/dL (NEGATIVE) 09/18/17 09:39 Urine Ketones NEGATIVE mg/dL (NEGATIVE) 09/18/17 09:39 Urine Occult Blood NEGATIVE (NEGATIVE) 09/18/17 09:39 Urine Nitrite NEGATIVE (NEGATIVE) 09/18/17 09:39 Urine Bilirubin NEGATIVE (NEGATIVE) 09/18/17 09:39 Urine Urobilinogen 2 E.U./dL (NORMAL) H 09/18/17 09:39 Ur Leukocyte Esterase NEGATIVE (NEGATIVE) 09/18/17 09:39 Urine RBC 0-5 /HPF (0-5) 09/15/17 16:00 Urine WBC 4-5 /HPF (0-5) 09/15/17 16:00 Ur Squamous Epith Cells MOD Squamous (<= Few) H 09/15/17 16:00 Urine Bacteria Few /HPF (None Seen) 09/15/17 16:00 Urine Mucus Few Strands 09/15/17 16:00 Ur Microscopic Review NOT INDICATED 09/18/17 09:39 Urine Culture Comments NOT INDICATED 09/18/17 09:39 Salicylates < 6.0 mg/dL 09/15/17 15:00 Urine Opiates Screen NEGATIVE (NEGATIVE) 09/15/17 16:00 Ur Oxycodone Screen NEGATIVE (NEGATIVE) 09/15/17 16:00 Urine Methadone Screen NEGATIVE (NEGATIVE) 09/15/17 16:00 Ur Propoxyphene Screen NEGATIVE (NEGATIVE) 09/15/17 16:00 Acetaminophen < 10 ug/mL (10-30) L 09/15/17 15:00 Ur Barbiturates Screen NEGATIVE (NEGATIVE) 09/15/17 16:00 Ur Tricyclics Screen NEGATIVE (NEGATIVE) 09/15/17 16:00 Ur Phencyclidine Scrn NEGATIVE (NEGATIVE) 09/15/17 16:00 Ur Amphetamine Screen NEGATIVE (NEGATIVE) 09/15/17 16:00 U Methamphetamines Scrn NEGATIVE (NEGATIVE) 09/15/17 16:00 U Benzodiazepines Scrn NEGATIVE (NEGATIVE) 09/15/17 16:00 Urine Cocaine Screen NEGATIVE (NEGATIVE) 09/15/17 16:00 U Cannabinoids Screen NEGATIVE (NEGATIVE) 09/15/17 16:00 Ethyl Alcohol < 5.0 mg/dL 09/15/17 15:00 - Procedures Procedures: Procedures ESOPHAGOGASTRODUODENOSCOPY [EGD] W/CLOSED BIOPSY (02/12/14) EXCISION OF STOMACH, ENDO, DIAGN (08/26/17)
[2017-10-01] MEDS: LORazepam 0.5 MG TABLET PO PRN (20:24)
[2017-10-01] MEDS: DONEPEZIL 5 MG TABLET PO SCH (20:24)
[2017-10-01] MEDS: ZOLPIDEM 5 MG TABLET PO PRN (21:47)
[2017-10-01] MEDS: diphenhydrAMINE 25 MG CAPSULE PO PRN (21:47)
[2017-10-02] MEDS: METOPROLOL TARTRATE 25 MG TABLET PO SCH ×2 (10:04→20:10)
[2017-10-02] MEDS: FOLIC ACID 1 MG TABLET PO SCH (10:05)
[2017-10-02] MEDS: POLYETHYLENE GLYCOL 3350 17 GM PACKET PO SCH (10:06)
--- NOTE | 2017-10-02 18:37 | PROVIDER PROGRESS NOTE ---
Assessment/Plan - Problem List (1) Dementia Qualifiers: Alzheimer's disease onset: unspecified onset Assessment/Plan: Continue present care - Current Meds Current Meds: Current Medications Generic Name Dose Route Start Last Admin Trade Name Freq PRN Reason Stop Dose Admin Acetaminophen 650 mg 09/18/17 15:43 10/01/17 20:24 Tylenol PO 650 mg Q4HR PRN Administration Pain 1 to 4 Diphenhydramine HCl 25 mg 10/01/17 20:34 10/01/17 21:47 Benadryl PO 25 mg QPM PRN Administration Insomnia Donepezil HCl 5 mg 09/18/17 21:00 10/01/17 20:24 Aricept PO 5 mg QPM NAYELI Administration Folic Acid 1 mg 09/21/17 14:00 10/02/17 10:05 PO 1 mg DAILY NAYELI Administration Lorazepam 1 mg 09/21/17 15:30 10/01/17 20:24 Ativan PO 1 mg Q6H PRN Administration Anxiety Metoprolol Tartrate 25 mg 09/22/17 08:00 10/02/17 10:04 Lopressor PO 25 mg BID NAYELI Administration Polyethylene Glycol 17 gm 09/19/17 09:00 10/02/17 10:06 Miralax PO 17 gm DAILY NAYELI Administration Promethazine HCl 12.5 mg 09/18/17 15:57 09/24/17 20:14 Phenergan PO 12.5 mg Q6H PRN Administration Nausea / Vomiting Zolpidem Tartrate 5 mg 09/21/17 15:30 10/01/17 21:47 Ambien PO 5 mg QPM PRN Administration Insomnia - Lab Result Fish Bone Diagrams: 09/15/17 15:00 09/15/17 15:00 Subjective - Subjective Patient Reports: No Complaints Objective Vital Signs: Vital Signs - 24 hr 10/02/17 10/02/17 10/02/17 00:10 07:43 10:04 Temperature 36.8 C 36.8 C Heart Rate [ 81 83 Brachial] Respiratory 20 12 Rate Blood Pressure 104/66 Blood Pressure 134/77 H 131/63 H [Right Brachial artery] O2 Saturation 100 97 10/02/17 15:42 Temperature 36.8 C Heart Rate [ 78 Brachial] Respiratory 19 Rate Blood Pressure Blood Pressure 138/57 H [Right Brachial artery] O2 Saturation 97 Oxygen O2 Source Room air I&O (Last 24 Hrs): Intake and Output Totals x24h 09/30/17 10/01/17 10/02/17 23:59 23:59 23:59 Intake Total 1580 1630 1350 Balance 1580 1630 1350 General: No acute distress - Results Results: Laboratory Results WBC 13.5 x10^3/uL (4.8-10.8) H 09/15/17 15:00 RBC 4.80 10^6/uL (4.20-5.40) 09/15/17 15:00 Hgb 15.0 g/dL (12.0-16.0) 09/15/17 15:00 Hct 44.5 % (37.0-47.0) 09/15/17 15:00 MCV 92.6 fL (81.0-99.0) 09/15/17 15:00 MCH 31.3 pg (27.0-31.0) H 09/15/17 15:00 MCHC 33.8 g/dL (32.0-36.0) 09/15/17 15:00 RDW 13.5 % (12.0-15.0) 09/15/17 15:00 Plt Count 294 10^3/uL (130-450) 09/15/17 15:00 MPV 7.3 fL (7.9-10.8) L 09/15/17 15:00 Neut # 10.8 10^3/uL (1.5-6.6) H 09/15/17 15:00 Lymph # 1.4 10^3/uL (1.5-3.5) L 09/15/17 15:00 [place] # 1.2 10^3/uL (0.0-1.0) H 09/15/17 15:00 Eos # 0.1 10^3/uL (0.0-0.7) 09/15/17 15:00 Baso # 0.0 10^3/uL (0.0-0.1) 09/15/17 15:00 Absolute Nucleated RBC 0.01 x10^3/uL 09/15/17 15:00 Nucleated RBC % 0.0 /100WBC 09/15/17 15:00 PT 11.6 secs (9.9-12.6) 09/15/17 15:00 INR 1.0 (0.8-1.2) 09/15/17 15:00 Sodium 135 mmol/L (135-145) 09/15/17 15:00 Potassium 3.4 mmol/L (3.5-5.0) L 09/15/17 15:00 Chloride 93 mmol/L (101-111) L 09/15/17 15:00 Carbon Dioxide 27 mmol/L (21-32) 09/15/17 15:00 Anion Gap 15.0 (6-13) H 09/15/17 15:00 BUN 15 mg/dL (6-20) 09/15/17 15:00 Creatinine 0.8 mg/dL (0.4-1.0) 09/15/17 15:00 Estimated GFR (MDRD) 71 (>89) L 09/15/17 15:00 Glucose 143 mg/dL (70-100) H 09/15/17 15:00 Calcium 9.8 mg/dL (8.5-10.3) 09/15/17 15:00 Magnesium 1.9 mg/dL (1.7-2.8) 09/15/17 15:00 Total Bilirubin 1.3 mg/dL (0.2-1.0) H 09/15/17 15:00 AST 24 IU/L (10-42) 09/15/17 15:00 ALT 17 IU/L (10-60) 09/15/17 15:00 Alkaline Phosphatase 72 IU/L (42-121) 09/15/17 15:00 Ammonia 9.0 umol/L (7-35) 09/15/17 15:00 Total Creatine Kinase 18 IU/L (22-269) L 09/15/17 15:00 Troponin I < 0.04 ng/mL (<0.49) 09/15/17 15:00 Total Protein 7.2 g/dL (6.7-8.2) 09/15/17 15:00 Albumin 3.9 g/dL (3.2-5.5) 09/15/17 15:00 Globulin 3.3 g/dL (2.1-4.2) 09/15/17 15:00 Albumin/Globulin Ratio 1.2 (1.0-2.2) 09/15/17 15:00 Lipase 28 U/L (22-51) 09/15/17 15:00 Whole Bld Vitamin B1 >1200 nmol/L (78-185) H 09/18/17 09:50 Folate 3.20 ng/mL (5.90 - >24.8) L 09/18/17 09:50 TSH 1.91 uIU/mL (0.34-5.60) 09/15/17 15:00 Urine Color YELLOW 09/18/17 09:39 Urine Clarity CLEAR (CLEAR) 09/18/17 09:39 Urine pH 6.0 PH (5.0-7.5) 09/18/17 09:39 Ur Specific [place] 1.020 (1.002-1.030) 09/18/17 09:39 Urine Protein NEGATIVE mg/dL (NEGATIVE) 09/18/17 09:39 Urine Glucose (UA) NEGATIVE mg/dL (NEGATIVE) 09/18/17 09:39 Urine Ketones NEGATIVE mg/dL (NEGATIVE) 09/18/17 09:39 Urine Occult Blood NEGATIVE (NEGATIVE) 09/18/17 09:39 Urine Nitrite NEGATIVE (NEGATIVE) 09/18/17 09:39 Urine Bilirubin NEGATIVE (NEGATIVE) 09/18/17 09:39 Urine Urobilinogen 2 E.U./dL (NORMAL) H 09/18/17 09:39 Ur Leukocyte Esterase NEGATIVE (NEGATIVE) 09/18/17 09:39 Urine RBC 0-5 /HPF (0-5) 09/15/17 16:00 Urine WBC 4-5 /HPF (0-5) 09/15/17 16:00 Ur Squamous Epith Cells MOD Squamous (<= Few) H 09/15/17 16:00 Urine Bacteria Few /HPF (None Seen) 09/15/17 16:00 Urine Mucus Few Strands 09/15/17 16:00 Ur Microscopic Review NOT INDICATED 09/18/17 09:39 Urine Culture Comments NOT INDICATED 09/18/17 09:39 Salicylates < 6.0 mg/dL 09/15/17 15:00 Urine Opiates Screen NEGATIVE (NEGATIVE) 09/15/17 16:00 Ur Oxycodone Screen NEGATIVE (NEGATIVE) 09/15/17 16:00 Urine Methadone Screen NEGATIVE (NEGATIVE) 09/15/17 16:00 Ur Propoxyphene Screen NEGATIVE (NEGATIVE) 09/15/17 16:00 Acetaminophen < 10 ug/mL (10-30) L 09/15/17 15:00 Ur Barbiturates Screen NEGATIVE (NEGATIVE) 09/15/17 16:00 Ur Tricyclics Screen NEGATIVE (NEGATIVE) 09/15/17 16:00 Ur Phencyclidine Scrn NEGATIVE (NEGATIVE) 09/15/17 16:00 Ur Amphetamine Screen NEGATIVE (NEGATIVE) 09/15/17 16:00 U Methamphetamines Scrn NEGATIVE (NEGATIVE) 09/15/17 16:00 U Benzodiazepines Scrn NEGATIVE (NEGATIVE) 09/15/17 16:00 Urine Cocaine Screen NEGATIVE (NEGATIVE) 09/15/17 16:00 U Cannabinoids Screen NEGATIVE (NEGATIVE) 09/15/17 16:00 Ethyl Alcohol < 5.0 mg/dL 09/15/17 15:00 - Procedures Procedures: Procedures ESOPHAGOGASTRODUODENOSCOPY [EGD] W/CLOSED BIOPSY (02/12/14) EXCISION OF STOMACH, ENDO, DIAGN (08/26/17)
[2017-10-02] MEDS: DONEPEZIL 5 MG TABLET PO SCH (20:10)
[2017-10-02] MEDS: LORazepam 0.5 MG TABLET PO PRN (20:11)
[2017-10-02] MEDS: ACETAMINOPHEN 325 MG TABLET PO PRN (20:18)
[2017-10-03] MEDS: POLYETHYLENE GLYCOL 3350 17 GM PACKET PO SCH (10:20)
[2017-10-03] MEDS: METOPROLOL TARTRATE 25 MG TABLET PO SCH ×2 (10:21→21:20)
[2017-10-03] MEDS: FOLIC ACID 1 MG TABLET PO SCH (10:22)
--- NOTE | 2017-10-03 14:09 | PROVIDER PROGRESS NOTE ---
Assessment/Plan - Problem List (1) Dementia Qualifiers: Alzheimer's disease onset: unspecified onset Assessment/Plan: Unchanged mentation. Will increase dose of Aricept. Will check routine labs on Mon (tomorrow). Awaiting placement. I spoke to daughter Brittani Ortiz today and updated her on the patient's consition. Brittani said she is done with paperwork and wonders where she gets a letter stating the patient's condition. I spoke to our Drapery Sewer Hand, Sandra, then called the daughter back, stating that Marg[facility] from [facility] is reviewing the chart and will be stating in her record, what the patient's condition is and what the patient's care needs are and that the report will be filed after the petition for guardianship is submitted by the daughter. The daughter stated that she would be handing in the petition tomorrow in [facility]. - Current Meds Current Meds: Current Medications Generic Name Dose Route Start Last Admin Trade Name Freq PRN Reason Stop Dose Admin Acetaminophen 650 mg 09/18/17 15:43 10/02/17 20:18 Tylenol PO 650 mg Q4HR PRN Administration Pain 1 to 4 Diphenhydramine HCl 25 mg 10/01/17 20:34 10/01/17 21:47 Benadryl PO 25 mg QPM PRN Administration Insomnia Donepezil HCl 5 mg 09/18/17 21:00 10/02/17 20:10 Aricept PO 5 mg QPM NAYELI Administration Folic Acid 1 mg 09/21/17 14:00 10/03/17 10:22 PO 1 mg DAILY NAYELI Administration Lorazepam 1 mg 09/21/17 15:30 10/02/17 20:11 Ativan PO 1 mg Q6H PRN Administration Anxiety Metoprolol Tartrate 25 mg 09/22/17 08:00 10/03/17 10:21 Lopressor PO 25 mg BID NAYELI Administration Polyethylene Glycol 17 gm 09/19/17 09:00 10/03/17 10:20 Miralax PO 17 gm DAILY NAYELI Administration Promethazine HCl 12.5 mg 09/18/17 15:57 09/24/17 20:14 Phenergan PO 12.5 mg Q6H PRN Administration Nausea / Vomiting Zolpidem Tartrate 5 mg 09/21/17 15:30 10/01/17 21:47 Ambien PO 5 mg QPM PRN Administration Insomnia - Lab Result Fish Bone Diagrams: 09/15/17 15:00 09/15/17 15:00 Subjective - Subjective Patient Reports: No Complaints Nursing Reports: No Complaints Objective Vital Signs: Vital Signs - 24 hr 10/02/17 10/02/17 10/02/17 15:42 19:26 20:06 Temperature 36.8 C 36.5 C Heart Rate [ 78 81 87 Brachial] Respiratory 19 20 20 Rate Blood Pressure Blood Pressure 138/57 H 130/54 L 104/84 H [Right Brachial artery] O2 Saturation 97 99 99 10/02/17 10/02/17 10/03/17 20:10 23:33 04:57 Temperature 36.1 C L 36.4 C L Heart Rate [ 82 79 Brachial] Respiratory 18 18 Rate Blood Pressure 104/84 H Blood Pressure 147/70 H 116/44 L [Right Brachial artery] O2 Saturation 100 98 10/03/17 10/03/17 07:48 10:21 Temperature 36.5 C Heart Rate [ 82 Brachial] Respiratory 16 Rate Blood Pressure 124/65 Blood Pressure 143/64 H [Right Brachial artery] O2 Saturation 97 Oxygen O2 Source Room air I&O (Last 24 Hrs): Intake and Output Totals x24h 10/01/17 10/02/17 10/03/17 23:59 23:59 23:59 Intake Total 1630 1800 700 Balance 1630 1800 700 General: Alert Respiratory: No respiratory distress - Results Results: Laboratory Results WBC 13.5 x10^3/uL (4.8-10.8) H 09/15/17 15:00 RBC 4.80 10^6/uL (4.20-5.40) 09/15/17 15:00 Hgb 15.0 g/dL (12.0-16.0) 09/15/17 15:00 Hct 44.5 % (37.0-47.0) 09/15/17 15:00 MCV 92.6 fL (81.0-99.0) 09/15/17 15:00 MCH 31.3 pg (27.0-31.0) H 09/15/17 15:00 MCHC 33.8 g/dL (32.0-36.0) 09/15/17 15:00 RDW 13.5 % (12.0-15.0) 09/15/17 15:00 Plt Count 294 10^3/uL (130-450) 09/15/17 15:00 MPV 7.3 fL (7.9-10.8) L 09/15/17 15:00 Neut # 10.8 10^3/uL (1.5-6.6) H 09/15/17 15:00 Lymph # 1.4 10^3/uL (1.5-3.5) L 09/15/17 15:00 [place] # 1.2 10^3/uL (0.0-1.0) H 09/15/17 15:00 Eos # 0.1 10^3/uL (0.0-0.7) 09/15/17 15:00 Baso # 0.0 10^3/uL (0.0-0.1) 09/15/17 15:00 Absolute Nucleated RBC 0.01 x10^3/uL 09/15/17 15:00 Nucleated RBC % 0.0 /100WBC 09/15/17 15:00 PT 11.6 secs (9.9-12.6) 09/15/17 15:00 INR 1.0 (0.8-1.2) 09/15/17 15:00 Sodium 135 mmol/L (135-145) 09/15/17 15:00 Potassium 3.4 mmol/L (3.5-5.0) L 09/15/17 15:00 Chloride 93 mmol/L (101-111) L 09/15/17 15:00 Carbon Dioxide 27 mmol/L (21-32) 09/15/17 15:00 Anion Gap 15.0 (6-13) H 09/15/17 15:00 BUN 15 mg/dL (6-20) 09/15/17 15:00 Creatinine 0.8 mg/dL (0.4-1.0) 09/15/17 15:00 Estimated GFR (MDRD) 71 (>89) L 09/15/17 15:00 Glucose 143 mg/dL (70-100) H 09/15/17 15:00 Calcium 9.8 mg/dL (8.5-10.3) 09/15/17 15:00 Magnesium 1.9 mg/dL (1.7-2.8) 09/15/17 15:00 Total Bilirubin 1.3 mg/dL (0.2-1.0) H 09/15/17 15:00 AST 24 IU/L (10-42) 09/15/17 15:00 ALT 17 IU/L (10-60) 09/15/17 15:00 Alkaline Phosphatase 72 IU/L (42-121) 09/15/17 15:00 Ammonia 9.0 umol/L (7-35) 09/15/17 15:00 Total Creatine Kinase 18 IU/L (22-269) L 09/15/17 15:00 Troponin I < 0.04 ng/mL (<0.49) 09/15/17 15:00 Total Protein 7.2 g/dL (6.7-8.2) 09/15/17 15:00 Albumin 3.9 g/dL (3.2-5.5) 09/15/17 15:00 Globulin 3.3 g/dL (2.1-4.2) 09/15/17 15:00 Albumin/Globulin Ratio 1.2 (1.0-2.2) 09/15/17 15:00 Lipase 28 U/L (22-51) 09/15/17 15:00 Whole Bld Vitamin B1 >1200 nmol/L (78-185) H 09/18/17 09:50 Folate 3.20 ng/mL (5.90 - >24.8) L 09/18/17 09:50 TSH 1.91 uIU/mL (0.34-5.60) 09/15/17 15:00 Urine Color YELLOW 09/18/17 09:39 Urine Clarity CLEAR (CLEAR) 09/18/17 09:39 Urine pH 6.0 PH (5.0-7.5) 09/18/17 09:39 Ur Specific [place] 1.020 (1.002-1.030) 09/18/17 09:39 Urine Protein NEGATIVE mg/dL (NEGATIVE) 09/18/17 09:39 Urine Glucose (UA) NEGATIVE mg/dL (NEGATIVE) 09/18/17 09:39 Urine Ketones NEGATIVE mg/dL (NEGATIVE) 09/18/17 09:39 Urine Occult Blood NEGATIVE (NEGATIVE) 09/18/17 09:39 Urine Nitrite NEGATIVE (NEGATIVE) 09/18/17 09:39 Urine Bilirubin NEGATIVE (NEGATIVE) 09/18/17 09:39 Urine Urobilinogen 2 E.U./dL (NORMAL) H 09/18/17 09:39 Ur Leukocyte Esterase NEGATIVE (NEGATIVE) 09/18/17 09:39 Urine RBC 0-5 /HPF (0-5) 09/15/17 16:00 Urine WBC 4-5 /HPF (0-5) 09/15/17 16:00 Ur Squamous Epith Cells MOD Squamous (<= Few) H 09/15/17 16:00 Urine Bacteria Few /HPF (None Seen) 09/15/17 16:00 Urine Mucus Few Strands 09/15/17 16:00 Ur Microscopic Review NOT INDICATED 09/18/17 09:39 Urine Culture Comments NOT INDICATED 09/18/17 09:39 Salicylates < 6.0 mg/dL 09/15/17 15:00 Urine Opiates Screen NEGATIVE (NEGATIVE) 09/15/17 16:00 Ur Oxycodone Screen NEGATIVE (NEGATIVE) 09/15/17 16:00 Urine Methadone Screen NEGATIVE (NEGATIVE) 09/15/17 16:00 Ur Propoxyphene Screen NEGATIVE (NEGATIVE) 09/15/17 16:00 Acetaminophen < 10 ug/mL (10-30) L 09/15/17 15:00 Ur Barbiturates Screen NEGATIVE (NEGATIVE) 09/15/17 16:00 Ur Tricyclics Screen NEGATIVE (NEGATIVE) 09/15/17 16:00 Ur Phencyclidine Scrn NEGATIVE (NEGATIVE) 09/15/17 16:00 Ur Amphetamine Screen NEGATIVE (NEGATIVE) 09/15/17 16:00 U Methamphetamines Scrn NEGATIVE (NEGATIVE) 09/15/17 16:00 U Benzodiazepines Scrn NEGATIVE (NEGATIVE) 09/15/17 16:00 Urine Cocaine Screen NEGATIVE (NEGATIVE) 09/15/17 16:00 U Cannabinoids Screen NEGATIVE (NEGATIVE) 09/15/17 16:00 Ethyl Alcohol < 5.0 mg/dL 09/15/17 15:00 - Procedures Procedures: Procedures ESOPHAGOGASTRODUODENOSCOPY [EGD] W/CLOSED BIOPSY (02/12/14) EXCISION OF STOMACH, ENDO, DIAGN (08/26/17)
[2017-10-03] MEDS: PROMETHAZINE 12.5 MG TABLET PO PRN (18:51)
[2017-10-03] MEDS: LORazepam 0.5 MG TABLET PO PRN (18:51)
[2017-10-03] MEDS: DONEPEZIL 5 MG TABLET PO SCH (21:20)
[2017-10-03] MEDS: diphenhydrAMINE 25 MG CAPSULE PO PRN (21:20)
[2017-10-04] MEDS: ZOLPIDEM 5 MG TABLET PO PRN
[2017-10-04] MEDS: ACETAMINOPHEN 325 MG TABLET PO PRN ×2 (01:54→16:48)
[2017-10-04 05:47] LABS: BASOPHILS # (AUTO) 0.1 10^3/uL (0.0-0.1); BASOPHILS % (AUTO) 1.4 %; EOSINOPHILS # (AUTO) 0.1 10^3/uL (0.0-0.7); EOSINOPHILS % (AUTO) 1.4 %; HGB - HEMOGLOBIN 12.7 g/dL (12.0-16.0); LYMPHOCYTES # (AUTO) 2.3 10^3/uL (1.5-3.5); LYMPHOCYTES % (AUTO) 25.7 %; MEAN CORPUSCULAR HEMOGLOBIN 32.1 pg (27.0-31.0); MEAN CORPUSCULAR HGB CONC 33.5 g/dL (32.0-36.0); MEAN CORPUSCULAR VOLUME 95.9 fL (81.0-99.0); MEAN PLATELET VOLUME 7.3 fL (7.9-10.8); MONOCYTES # (AUTO) 0.8 10^3/uL (0.0-1.0); MONOCYTES % (AUTO) 9.2 %; NEUTROPHILS # (AUTO) 5.5 10^3/uL (1.5-6.6); NEUTROPHILS % (AUTO) 62.3 %; RED BLOOD COUNT 3.96 10^6/uL (4.20-5.40); RED CELL DISTRIBUTION WIDTH 14.2 % (12.0-15.0); UNCORRECTED WHITE BLOOD COUNT 8.8 x10^3/uL; WHITE BLOOD COUNT 8.8 x10^3/uL (4.8-10.8)
[2017-10-04 05:51] LABS: ALBUMIN/GLOBULIN RATIO 1.2 (1.0-2.2); BILIRUBIN,TOTAL 0.5 mg/dL (0.2-1.0); CALCIUM 8.8 mg/dL (8.5-10.3); CREATININE 0.7 mg/dL (0.4-1.0); MAGNESIUM 1.7 mg/dL (1.7-2.8); POTASSIUM 3.8 mmol/L (3.5-5.0)
[2017-10-04] MEDS: POLYETHYLENE GLYCOL 3350 17 GM PACKET PO SCH (08:22)
[2017-10-04] MEDS: METOPROLOL TARTRATE 25 MG TABLET PO SCH ×2 (08:23→20:11)
[2017-10-04] MEDS: FOLIC ACID 1 MG TABLET PO SCH ×2 (08:23→20:10)
--- NOTE | 2017-10-04 15:08 | PROVIDER PROGRESS NOTE ---
Assessment/Plan - Problem List (1) Dementia Qualifiers: Alzheimer's disease onset: unspecified onset Assessment/Plan: Awaiting filing of guardianship papers by daughter, mauricio [facility], to be accepted at SNF and eventual NH. I will DC Ativan and Phenergan, which could be having her paradoxical symptoms ( disinhibitory). (3) Low folate Assessment/Plan: Will increase po Folate replacement. - Current Meds Current Meds: Current Medications Generic Name Dose Route Start Last Admin Trade Name Freq PRN Reason Stop Dose Admin Acetaminophen 650 mg 09/18/17 15:43 10/04/17 01:54 Tylenol PO 650 mg Q4HR PRN Administration Pain 1 to 4 Diphenhydramine HCl 25 mg 10/01/17 20:34 10/03/17 21:20 Benadryl PO 25 mg QPM PRN Administration Insomnia Donepezil HCl 10 mg 10/03/17 21:00 10/03/17 21:20 Aricept PO 10 mg QPM NAYELI Administration Metoprolol Tartrate 25 mg 09/22/17 08:00 10/04/17 08:23 Lopressor PO 25 mg BID NAYELI Administration Polyethylene Glycol 17 gm 09/19/17 09:00 10/04/17 08:22 Miralax PO 17 gm DAILY NAYELI Administration Zolpidem Tartrate 5 mg 09/21/17 15:30 10/01/17 21:47 Ambien PO 5 mg QPM PRN Administration Insomnia - Lab Result Fish Bone Diagrams: 10/04/17 05:28 10/04/17 05:28 - Additional Planning My Orders: My Active Orders 10/03/17 21:00 Donepezil [Aricept] 10 mg PO QPM 10/04/17 21:00 Folic Acid 1 mg PO BID Subjective - Subjective Nursing Reports: Confused (Pt wide awake all night after Ativan dose) Objective Vital Signs: Vital Signs - 24 hr 10/03/17 10/03/17 10/04/17 18:10 23:34 05:33 Temperature 36.5 C 36.6 C 36.4 C L Heart Rate [ 91 75 79 Brachial] Respiratory 18 16 16 Rate Blood Pressure 128/62 138/51 H 134/65 H [Right Brachial artery] O2 Saturation 99 98 98 10/04/17 07:30 Temperature 36.3 C L Heart Rate [ 72 Brachial] Respiratory 16 Rate Blood Pressure 128/55 L [Right Brachial artery] O2 Saturation 97 Oxygen O2 Source Room air I&O (Last 24 Hrs): Intake and Output Totals x24h 10/02/17 10/03/17 10/04/17 23:59 23:59 23:59 Intake Total 1800 1172 1090 Balance 1800 1172 1090 Respiratory: No respiratory distress - Results Results: Laboratory Results WBC 8.8 x10^3/uL (4.8-10.8) 10/04/17 05:28 RBC 3.96 10^6/uL (4.20-5.40) L 10/04/17 05:28 Hgb 12.7 g/dL (12.0-16.0) 10/04/17 05:28 Hct 38.0 % (37.0-47.0) 10/04/17 05:28 MCV 95.9 fL (81.0-99.0) 10/04/17 05:28 MCH 32.1 pg (27.0-31.0) H 10/04/17 05:28 MCHC 33.5 g/dL (32.0-36.0) 10/04/17 05:28 RDW 14.2 % (12.0-15.0) 10/04/17 05:28 Plt Count 234 10^3/uL (130-450) 10/04/17 05:28 MPV 7.3 fL (7.9-10.8) L 10/04/17 05:28 Neut # 5.5 10^3/uL (1.5-6.6) 10/04/17 05:28 Lymph # 2.3 10^3/uL (1.5-3.5) 10/04/17 05:28 [place] # 0.8 10^3/uL (0.0-1.0) 10/04/17 05:28 Eos # 0.1 10^3/uL (0.0-0.7) 10/04/17 05:28 Baso # 0.1 10^3/uL (0.0-0.1) 10/04/17 05:28 Absolute Nucleated RBC 0.00 x10^3/uL 10/04/17 05:28 Nucleated RBC % 0.0 /100WBC 10/04/17 05:28 PT 11.6 secs (9.9-12.6) 09/15/17 15:00 INR 1.0 (0.8-1.2) 09/15/17 15:00 Sodium 137 mmol/L (135-145) 10/04/17 05:28 Potassium 3.8 mmol/L (3.5-5.0) 10/04/17 05:28 Chloride 105 mmol/L (101-111) 10/04/17 05:28 Carbon Dioxide 23 mmol/L (21-32) 10/04/17 05:28 Anion Gap 9.0 (6-13) 10/04/17 05:28 BUN 8 mg/dL (6-20) 10/04/17 05:28 Creatinine 0.7 mg/dL (0.4-1.0) 10/04/17 05:28 Estimated GFR (MDRD) 83 (>89) L 10/04/17 05:28 Glucose 87 mg/dL (70-100) 10/04/17 05:28 Calcium 8.8 mg/dL (8.5-10.3) 10/04/17 05:28 Magnesium 1.7 mg/dL (1.7-2.8) 10/04/17 05:28 Total Bilirubin 0.5 mg/dL (0.2-1.0) 10/04/17 05:28 AST 20 IU/L (10-42) 10/04/17 05:28 ALT 13 IU/L (10-60) 10/04/17 05:28 Alkaline Phosphatase 48 IU/L (42-121) 10/04/17 05:28 Ammonia 9.0 umol/L (7-35) 09/15/17 15:00 Total Creatine Kinase 18 IU/L (22-269) L 09/15/17 15:00 Troponin I < 0.04 ng/mL (<0.49) 09/15/17 15:00 Total Protein 6.0 g/dL (6.7-8.2) L 10/04/17 05:28 Albumin 3.3 g/dL (3.2-5.5) 10/04/17 05:28 Globulin 2.7 g/dL (2.1-4.2) 10/04/17 05:28 Albumin/Globulin Ratio 1.2 (1.0-2.2) 10/04/17 05:28 Lipase 28 U/L (22-51) 09/15/17 15:00 Whole Bld Vitamin B1 >1200 nmol/L (78-185) H 09/18/17 09:50 Folate 3.20 ng/mL (5.90 - >24.8) L 09/18/17 09:50 TSH 1.91 uIU/mL (0.34-5.60) 09/15/17 15:00 Urine Color YELLOW 09/18/17 09:39 Urine Clarity CLEAR (CLEAR) 09/18/17 09:39 Urine pH 6.0 PH (5.0-7.5) 09/18/17 09:39 Ur Specific [place] 1.020 (1.002-1.030) 09/18/17 09:39 Urine Protein NEGATIVE mg/dL (NEGATIVE) 09/18/17 09:39 Urine Glucose (UA) NEGATIVE mg/dL (NEGATIVE) 09/18/17 09:39 Urine Ketones NEGATIVE mg/dL (NEGATIVE) 09/18/17 09:39 Urine Occult Blood NEGATIVE (NEGATIVE) 09/18/17 09:39 Urine Nitrite NEGATIVE (NEGATIVE) 09/18/17 09:39 Urine Bilirubin NEGATIVE (NEGATIVE) 09/18/17 09:39 Urine Urobilinogen 2 E.U./dL (NORMAL) H 09/18/17 09:39 Ur Leukocyte Esterase NEGATIVE (NEGATIVE) 09/18/17 09:39 Urine RBC 0-5 /HPF (0-5) 09/15/17 16:00 Urine WBC 4-5 /HPF (0-5) 09/15/17 16:00 Ur Squamous Epith Cells MOD Squamous (<= Few) H 09/15/17 16:00 Urine Bacteria Few /HPF (None Seen) 09/15/17 16:00 Urine Mucus Few Strands 09/15/17 16:00 Ur Microscopic Review NOT INDICATED 09/18/17 09:39 Urine Culture Comments NOT INDICATED 09/18/17 09:39 Salicylates < 6.0 mg/dL 09/15/17 15:00 Urine Opiates Screen NEGATIVE (NEGATIVE) 09/15/17 16:00 Ur Oxycodone Screen NEGATIVE (NEGATIVE) 09/15/17 16:00 Urine Methadone Screen NEGATIVE (NEGATIVE) 09/15/17 16:00 Ur Propoxyphene Screen NEGATIVE (NEGATIVE) 09/15/17 16:00 Acetaminophen < 10 ug/mL (10-30) L 09/15/17 15:00 Ur Barbiturates Screen NEGATIVE (NEGATIVE) 09/15/17 16:00 Ur Tricyclics Screen NEGATIVE (NEGATIVE) 09/15/17 16:00 Ur Phencyclidine Scrn NEGATIVE (NEGATIVE) 09/15/17 16:00 Ur Amphetamine Screen NEGATIVE (NEGATIVE) 09/15/17 16:00 U Methamphetamines Scrn NEGATIVE (NEGATIVE) 09/15/17 16:00 U Benzodiazepines Scrn NEGATIVE (NEGATIVE) 09/15/17 16:00 Urine Cocaine Screen NEGATIVE (NEGATIVE) 09/15/17 16:00 U Cannabinoids Screen NEGATIVE (NEGATIVE) 09/15/17 16:00 Ethyl Alcohol < 5.0 mg/dL 09/15/17 15:00 - Procedures Procedures: Procedures ESOPHAGOGASTRODUODENOSCOPY [EGD] W/CLOSED BIOPSY (02/12/14) EXCISION OF STOMACH, ENDO, DIAGN (08/26/17)
[2017-10-04] MEDS: DONEPEZIL 5 MG TABLET PO SCH (20:10)
[2017-10-05] MEDS: POLYETHYLENE GLYCOL 3350 17 GM PACKET PO SCH (09:00)
[2017-10-05] MEDS: METOPROLOL TARTRATE 25 MG TABLET PO SCH ×2 (09:00→21:03)
[2017-10-05] MEDS: FOLIC ACID 1 MG TABLET PO SCH ×2 (09:00→21:05)
--- NOTE | 2017-10-05 18:42 | PROVIDER PROGRESS NOTE ---
Assessment/Plan - Problem List (1) Dementia Qualifiers: Alzheimer's disease onset: unspecified onset Assessment/Plan: Continue with current plan May need Haldol prn agitation - Current Meds Current Meds: Current Medications Generic Name Dose Route Start Last Admin Trade Name Freq PRN Reason Stop Dose Admin Acetaminophen 650 mg 09/18/17 15:43 10/04/17 16:48 Tylenol PO 650 mg Q4HR PRN Administration Pain 1 to 4 Diphenhydramine HCl 25 mg 10/01/17 20:34 10/03/17 21:20 Benadryl PO 25 mg QPM PRN Administration Insomnia Donepezil HCl 10 mg 10/03/17 21:00 10/04/17 20:10 Aricept PO 10 mg QPM NAYELI Administration Folic Acid 1 mg 10/04/17 21:00 10/05/17 09:00 PO 1 mg BID NAYELI Administration Metoprolol Tartrate 25 mg 09/22/17 08:00 10/05/17 09:00 Lopressor PO 25 mg BID NAYELI Administration Polyethylene Glycol 17 gm 09/19/17 09:00 10/05/17 09:00 Miralax PO 17 gm DAILY NAYELI Administration Zolpidem Tartrate 5 mg 09/21/17 15:30 10/01/17 21:47 Ambien PO 5 mg QPM PRN Administration Insomnia - Lab Result Fish Bone Diagrams: 10/04/17 05:28 10/04/17 05:28 - Additional Planning My Orders: My Active Orders 10/04/17 21:00 Folic Acid 1 mg PO BID 10/05/17 Dinner Gluten Free Diet [DIET] Subjective - Subjective Patient Reports: No Complaints Nursing Reports: Other (Pt more aggressive and "mcleod" today) Objective Vital Signs: Vital Signs - 24 hr 10/04/17 10/04/17 10/05/17 20:11 23:24 04:33 Temperature 36.4 C L 36.3 C L Heart Rate [ 78 86 Brachial] Respiratory 18 18 Rate Blood Pressure 131/97 H Blood Pressure 135/61 H 146/62 H [Right Brachial artery] O2 Saturation 97 98 10/05/17 10/05/17 10/05/17 08:56 09:00 16:10 Temperature 36.4 C L 36.5 C Heart Rate [ 92 71 Brachial] Respiratory 18 18 Rate Blood Pressure 123/59 L Blood Pressure 123/59 L 118/63 [Right Brachial artery] O2 Saturation 100 98 Oxygen O2 Source Room air I&O (Last 24 Hrs): Intake and Output Totals x24h 10/03/17 10/04/17 10/05/17 23:59 23:59 23:59 Intake Total 1172 1530 1040 Balance 1172 1530 1040 General: No acute distress - Results Results: Laboratory Results WBC 8.8 x10^3/uL (4.8-10.8) 10/04/17 05:28 RBC 3.96 10^6/uL (4.20-5.40) L 10/04/17 05:28 Hgb 12.7 g/dL (12.0-16.0) 10/04/17 05:28 Hct 38.0 % (37.0-47.0) 10/04/17 05:28 MCV 95.9 fL (81.0-99.0) 10/04/17 05:28 MCH 32.1 pg (27.0-31.0) H 10/04/17 05:28 MCHC 33.5 g/dL (32.0-36.0) 10/04/17 05:28 RDW 14.2 % (12.0-15.0) 10/04/17 05:28 Plt Count 234 10^3/uL (130-450) 10/04/17 05:28 MPV 7.3 fL (7.9-10.8) L 10/04/17 05:28 Neut # 5.5 10^3/uL (1.5-6.6) 10/04/17 05:28 Lymph # 2.3 10^3/uL (1.5-3.5) 10/04/17 05:28 [place] # 0.8 10^3/uL (0.0-1.0) 10/04/17 05:28 Eos # 0.1 10^3/uL (0.0-0.7) 10/04/17 05:28 Baso # 0.1 10^3/uL (0.0-0.1) 10/04/17 05:28 Absolute Nucleated RBC 0.00 x10^3/uL 10/04/17 05:28 Nucleated RBC % 0.0 /100WBC 10/04/17 05:28 PT 11.6 secs (9.9-12.6) 09/15/17 15:00 INR 1.0 (0.8-1.2) 09/15/17 15:00 Sodium 137 mmol/L (135-145) 10/04/17 05:28 Potassium 3.8 mmol/L (3.5-5.0) 10/04/17 05:28 Chloride 105 mmol/L (101-111) 10/04/17 05:28 Carbon Dioxide 23 mmol/L (21-32) 10/04/17 05:28 Anion Gap 9.0 (6-13) 10/04/17 05:28 BUN 8 mg/dL (6-20) 10/04/17 05:28 Creatinine 0.7 mg/dL (0.4-1.0) 10/04/17 05:28 Estimated GFR (MDRD) 83 (>89) L 10/04/17 05:28 Glucose 87 mg/dL (70-100) 10/04/17 05:28 Calcium 8.8 mg/dL (8.5-10.3) 10/04/17 05:28 Magnesium 1.7 mg/dL (1.7-2.8) 10/04/17 05:28 Total Bilirubin 0.5 mg/dL (0.2-1.0) 10/04/17 05:28 AST 20 IU/L (10-42) 10/04/17 05:28 ALT 13 IU/L (10-60) 10/04/17 05:28 Alkaline Phosphatase 48 IU/L (42-121) 10/04/17 05:28 Ammonia 9.0 umol/L (7-35) 09/15/17 15:00 Total Creatine Kinase 18 IU/L (22-269) L 09/15/17 15:00 Troponin I < 0.04 ng/mL (<0.49) 09/15/17 15:00 Total Protein 6.0 g/dL (6.7-8.2) L 10/04/17 05:28 Albumin 3.3 g/dL (3.2-5.5) 10/04/17 05:28 Globulin 2.7 g/dL (2.1-4.2) 10/04/17 05:28 Albumin/Globulin Ratio 1.2 (1.0-2.2) 10/04/17 05:28 Lipase 28 U/L (22-51) 09/15/17 15:00 Whole Bld Vitamin B1 >1200 nmol/L (78-185) H 09/18/17 09:50 Folate 28.00 ng/mL (5.90 - >24.8) 10/05/17 15:18 TSH 1.91 uIU/mL (0.34-5.60) 09/15/17 15:00 Urine Color YELLOW 09/18/17 09:39 Urine Clarity CLEAR (CLEAR) 09/18/17 09:39 Urine pH 6.0 PH (5.0-7.5) 09/18/17 09:39 Ur Specific [place] 1.020 (1.002-1.030) 09/18/17 09:39 Urine Protein NEGATIVE mg/dL (NEGATIVE) 09/18/17 09:39 Urine Glucose (UA) NEGATIVE mg/dL (NEGATIVE) 09/18/17 09:39 Urine Ketones NEGATIVE mg/dL (NEGATIVE) 09/18/17 09:39 Urine Occult Blood NEGATIVE (NEGATIVE) 09/18/17 09:39 Urine Nitrite NEGATIVE (NEGATIVE) 09/18/17 09:39 Urine Bilirubin NEGATIVE (NEGATIVE) 09/18/17 09:39 Urine Urobilinogen 2 E.U./dL (NORMAL) H 09/18/17 09:39 Ur Leukocyte Esterase NEGATIVE (NEGATIVE) 09/18/17 09:39 Urine RBC 0-5 /HPF (0-5) 09/15/17 16:00 Urine WBC 4-5 /HPF (0-5) 09/15/17 16:00 Ur Squamous Epith Cells MOD Squamous (<= Few) H 09/15/17 16:00 Urine Bacteria Few /HPF (None Seen) 09/15/17 16:00 Urine Mucus Few Strands 09/15/17 16:00 Ur Microscopic Review NOT INDICATED 09/18/17 09:39 Urine Culture Comments NOT INDICATED 09/18/17 09:39 Salicylates < 6.0 mg/dL 09/15/17 15:00 Urine Opiates Screen NEGATIVE (NEGATIVE) 09/15/17 16:00 Ur Oxycodone Screen NEGATIVE (NEGATIVE) 09/15/17 16:00 Urine Methadone Screen NEGATIVE (NEGATIVE) 09/15/17 16:00 Ur Propoxyphene Screen NEGATIVE (NEGATIVE) 09/15/17 16:00 Acetaminophen < 10 ug/mL (10-30) L 09/15/17 15:00 Ur Barbiturates Screen NEGATIVE (NEGATIVE) 09/15/17 16:00 Ur Tricyclics Screen NEGATIVE (NEGATIVE) 09/15/17 16:00 Ur Phencyclidine Scrn NEGATIVE (NEGATIVE) 09/15/17 16:00 Ur Amphetamine Screen NEGATIVE (NEGATIVE) 09/15/17 16:00 U Methamphetamines Scrn NEGATIVE (NEGATIVE) 09/15/17 16:00 U Benzodiazepines Scrn NEGATIVE (NEGATIVE) 09/15/17 16:00 Urine Cocaine Screen NEGATIVE (NEGATIVE) 09/15/17 16:00 U Cannabinoids Screen NEGATIVE (NEGATIVE) 09/15/17 16:00 Ethyl Alcohol < 5.0 mg/dL 09/15/17 15:00 - Procedures Procedures: Procedures ESOPHAGOGASTRODUODENOSCOPY [EGD] W/CLOSED BIOPSY (02/12/14) EXCISION OF STOMACH, ENDO, DIAGN (08/26/17)
[2017-10-05] MEDS: DONEPEZIL 5 MG TABLET PO SCH (21:03)
[2017-10-06] MEDS: diphenhydrAMINE 25 MG CAPSULE PO PRN (01:07)
[2017-10-06] MEDS: METOPROLOL TARTRATE 25 MG TABLET PO SCH ×2 (09:50→20:18)
[2017-10-06] MEDS: POLYETHYLENE GLYCOL 3350 17 GM PACKET PO SCH (09:50)
[2017-10-06] MEDS: DOCUSATE SODIUM 250 MG CAPSULE PO SCH (09:50)
[2017-10-06] MEDS: FOLIC ACID 1 MG TABLET PO SCH (09:50)
[2017-10-06] MEDS: ACETAMINOPHEN 325 MG TABLET PO PRN (18:33)
[2017-10-06] MEDS: DONEPEZIL 5 MG TABLET PO SCH (20:18)
[2017-10-06] MEDS: ZOLPIDEM 5 MG TABLET PO PRN (20:18)
--- NOTE | 2017-10-07 08:50 | PROVIDER PROGRESS NOTE ---
Subjective - Prog Note Date Prog Note Date: 10/07/17 Prog Note Time: 08:50 - Subjective Pt reports feeling: No change Subjective: she has dementia and is cooperative. but no real understanding of why and where , etc. Current Medications - Current Medications Current Medications: Active Medications Acetaminophen (Tylenol) 650 mg PO Q4HR PRN PRN Reason: Pain 1 to 4 Last Admin: 10/06/17 18:33 Dose: 650 mg Diphenhydramine HCl (Benadryl) 25 mg PO QPM PRN PRN Reason: Insomnia Last Admin: 10/06/17 01:07 Dose: 25 mg Docusate Sodium (Colace 250mg Capsule) 250 - 500 mg PO DAILY [facility] Last Admin: 10/06/17 09:50 Dose: 250 mg Donepezil HCl (Aricept) 10 mg PO QPM [facility] Last Admin: 10/06/17 20:18 Dose: 10 mg Metoprolol Tartrate (Lopressor) 25 mg PO BID [facility] Last Admin: 10/06/17 20:18 Dose: 25 mg Polyethylene Glycol (Miralax) 17 gm PO DAILY [facility] Last Admin: 10/06/17 09:50 Dose: 17 gm Prochlorperazine Edisylate (Compazine Inj) 10 mg IVP Q6HR PRN PRN Reason: Nausea / Vomiting Zolpidem Tartrate (Ambien) 5 mg PO QPM PRN PRN Reason: Insomnia Last Admin: 10/06/17 20:18 Dose: 5 mg Clarithromycin 500 mg PO BID 09/17/17 Metronidazole 1 tab PO [id number] 09/17/17 Omeprazole [PriLOSEC] 20 mg PO DAILY 09/17/17 Objective - Vital Signs/Intake & Output Reviewed Vital Signs: Yes Vital Signs: Vital Signs x48h Temp Pulse Resp BP Pulse Ox 10/07/17 01:42 36.6 C 84 18 144/85 H 98 Intake & Output: Intake & Output 10/04/17 10/05/17 10/06/17 10/07/17 23:59 23:59 23:59 23:59 Intake Total 1530 1160 1350 50 Balance 1530 1160 1350 50 - Objective General Appearance: positive: No acute distress, Alert Eyes Bilateral: positive: PERRL ENT: positive: Pharynx nml Neck: positive: No JVD. negative: Stiff neck, Carotid bruit Respiratory: positive: Chest non-tender. negative: Wheezes, Rales, Rhonchi Cardiovascular: positive: Regular rate & rhythm, No murmur. negative: Gallop/S4 , Friction rub Abdomen: positive: Non-tender, No organomegaly, Nml bowel sounds, No distention Skin: positive: Warm, Dry Extremities: positive: Non-tender, Full ROM, No pedal edema Neurologic/Psychiatric: positive: Motor nml, Disoriented to person, Disoriented to place, Disoriented to time, Other (walking in the hallways, eating.) - Lab Results Fish Bones: 10/04/17 05:28 10/04/17 05:28 Assessment/Plan - Problem List (1) Dementia Impression: This bean elderly female was found wandering around in her neighborhood. Disheveled, malnourished. She really had no close relatives near her. As such she was brought into the hospital because it is unsafe to discharge her. She has now been here since September 15. Social work is attempting to get family to assume power of contract attorney and then we can get the paperwork on going for finances and then eventually placement. Qualifiers: Dementia type: Alzheimer's disease Alzheimer's disease onset: unspecified onset
[2017-10-07] MEDS: METOPROLOL TARTRATE 25 MG TABLET PO SCH ×2 (10:38→21:44)
[2017-10-07] MEDS: DOCUSATE SODIUM 250 MG CAPSULE PO SCH (10:41)
[2017-10-07] MEDS: POLYETHYLENE GLYCOL 3350 17 GM PACKET PO SCH (10:41)
[2017-10-07] MEDS: PRENATAL VITAMIN TABLET PO SCH (16:56)
[2017-10-07] MEDS: ZOLPIDEM 5 MG TABLET PO PRN (21:44)
[2017-10-07] MEDS: DONEPEZIL 5 MG TABLET PO SCH (21:44)
[2017-10-08] MEDS: METOPROLOL TARTRATE 25 MG TABLET PO SCH ×2 (08:29→20:40)
[2017-10-08] MEDS: PRENATAL VITAMIN TABLET PO SCH (08:29)
[2017-10-08] MEDS: DOCUSATE SODIUM 250 MG CAPSULE PO SCH (08:29)
[2017-10-08] MEDS: ACETAMINOPHEN 325 MG TABLET PO PRN ×2 (08:30→20:39)
[2017-10-08] MEDS: POLYETHYLENE GLYCOL 3350 17 GM PACKET PO SCH (08:30)
--- NOTE | 2017-10-08 13:36 | PROVIDER PROGRESS NOTE ---
Subjective - Prog Note Date Prog Note Date: 10/08/17 Prog Note Time: 13:34 - Subjective Pt reports feeling: No change Subjective: she thinks she's on her way to the hospital to meet with a physician and hopes they don't keep her waiting too long. denies any problems. no pain at all. eating. ambulating in room and rangel w/o issue. Current Medications - Current Medications Current Medications: Active Medications Acetaminophen (Tylenol) 650 mg PO Q4HR PRN PRN Reason: Pain 1 to 4 Last Admin: 10/08/17 08:30 Dose: 650 mg Diphenhydramine HCl (Benadryl) 25 mg PO QPM PRN PRN Reason: Insomnia Last Admin: 10/06/17 01:07 Dose: 25 mg Docusate Sodium (Colace 250mg Capsule) 250 - 500 mg PO DAILY [facility] Last Admin: 10/08/17 08:29 Dose: 250 mg Donepezil HCl (Aricept) 10 mg PO QPM [facility] Last Admin: 10/07/17 21:44 Dose: 10 mg Metoprolol Tartrate (Lopressor) 25 mg PO BID [facility] Last Admin: 10/08/17 08:29 Dose: 25 mg Polyethylene Glycol (Miralax) 17 gm PO DAILY [facility] Last Admin: 10/08/17 08:30 Dose: Not Given Multivit/Folic Acid/Iron (Trinatal Rx 1) 1 tab PO DAILYWM [facility] Last Admin: 10/08/17 08:29 Dose: 1 tab Prochlorperazine Edisylate (Compazine Inj) 10 mg IVP Q6HR PRN PRN Reason: Nausea / Vomiting Zolpidem Tartrate (Ambien) 5 mg PO QPM PRN PRN Reason: Insomnia Last Admin: 10/07/17 21:44 Dose: 5 mg Clarithromycin 500 mg PO BID 09/17/17 Metronidazole 1 tab PO [id number] 09/17/17 Omeprazole [PriLOSEC] 20 mg PO DAILY 09/17/17 Objective - Vital Signs/Intake & Output Reviewed Vital Signs: Yes Vital Signs: Vital Signs x48h Temp Pulse Resp BP BP Pulse Ox 10/08/17 08:29 130/63 10/08/17 08:09 36.3 C L 99 18 130/63 99 Intake & Output: Intake & Output 10/05/17 10/06/17 10/07/17 10/08/17 23:59 23:59 23:59 23:59 Intake Total 1160 1350 1551 170 Balance 1160 1350 1551 170 - Objective General Appearance: positive: No acute distress, Alert, Other (middled aged white female, WN,WD who looks younger than stated age.) Eyes Bilateral: positive: PERRL, EOMI ENT: positive: Pharynx nml, No signs of dehydration Neck: positive: No JVD. negative: Stiff neck, Carotid bruit Respiratory: positive: Chest non-tender. negative: Wheezes, Rales, Rhonchi Cardiovascular: positive: Regular rate & rhythm, No murmur. negative: Gallop/S4 , Friction rub Abdomen: positive: Non-tender, No organomegaly, Nml bowel sounds, No distention Skin: positive: Warm, Dry Extremities: positive: Non-tender, Full ROM, No pedal edema Neurologic/Psychiatric: positive: CN's nml (2-12), Motor nml, Disoriented to place, Disoriented to time. negative: Slurred/abnml speech - Lab Results Fish Bones: 10/04/17 05:28 10/04/17 05:28 Assessment/Plan - Problem List (1) Dementia Impression: 67yo woman brought in by EMS for welfare check on 09/15/17. Hx from Dr Christianson, has H/O EtOH. Charts shows she was a reasonable historian recently and recent endoscopy with H. Pylori. Seems like an subacute decrease in mental status. Does use EtOH. Per Dr. Christianson she thinks probably a long history of alcohol abuse has caused this. She had a head CT a few days prior to admission that was grossly negative. Stayed in ER since no criteria for acute care admission and transitioned to [facility] on 09/18 to our service. Since she's been here, had MRI head 09/18 and negative. UA negative. Laboratory Tests 09/15/17 09/18/17 09/18/17 15:00 09:50 09:50 Whole Bld Vitamin B1 >1200 H Folate 3.20 L TSH 1.91 10/05/17 15:18 Whole Bld Vitamin B1 Folate 28.00 TSH Urine toxicology negative for recreational substances. 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 waiting for placement and Social Service keeping us up to date with that. Please see their notes. Qualifiers: Dementia type: Alzheimer's disease Alzheimer's disease onset: unspecified onset (2) H. pylori infection Impression: completed therapy 09/24/17
[2017-10-08] MEDS: DONEPEZIL 5 MG TABLET PO SCH (20:39)
--- NOTE | 2017-10-09 07:38 | Discharge Plan ---
"Discharge Plan for SNF / [facility] - DC Plan and Transition Orders Disposition: 61 [facility] DC/Xfer Condition: Stable SNF Transition Orders: Admit to: [facility] under the care of assigned provider by facility. Discharge Diagnosis: dementia, related to alcohol abuse low folic acid levels H pylori infection with treatment completed 09/25/17 celiac disease Medicare Certification: I certify that Post Hospital custodial care is medically necessary on a continuing basis for any of the conditions for which she/he is receiving care during hospitalization. Notify PCP of admission and forward orders to primary provider for signature. Weight on admission and monthly. Call PCP immediately if weight increases by 7 pounds or if patient develops dyspnea, chest pain/tightness or edema. House Bowel Program: yes If no BM after 2 days, nurse may give M.O.M. 30ml PO PRN and /or ducolax Supp 1 NC and /or STEVIE 250mg P.O., and/or senna 1-2 tabs PO. On day 3 nurse may give repeat above order until residents constipation is resolved. Immunizations: Annual Influenza Vaccine: yes. (between Jul 23 and February 19.) Unless allergy or already given Two-Step PPD: yes per [facility] [id number] or appropriate documentation of approved exceptions Treatments & Other Orders: none Oxygen Orders: none Lab Tests or X-Rays Orders: none Orthopedic Orders: none. Medications: PLEASE REFER TO THE DISCHARGE MEDICATION LIST. Insulin Orders? no Diagnosis: Diabetes Initiate hypo and hyperglycemia protocols for BG <70 and BG >375. May check BG prn for signs/symptoms of dysglycemia. Frequency of BG checks: [AC/Meal/HS] Basal Insulin: Lantus 100 units / ml inject subq as follows: [] [] Other: [] Correction Insulin: - Select the type of insulin below [Choose: Novolog/Humalog]100 units /ml insulin inject subq per orders indicate below [] LOW DOSE [] MODERATE DOSE [] MODERATE/HIGH DOSE [] HIGH DOSE GB UNITS GB UNITS GB UNITS GB UNITS 61-140 0 UNITS 61-140 0 UNITS 61-140 0 UNITS 61-140 0 UNITS 141-175 1 UNITS 141-175 1 UNITS 141-175 2 UNITS 141-175 3 UNITS 176-225 2 UNITS 176-225 3 UNITS 176-225 4 UNITS 176-225 5 UNITS 226-275 3 UNITS 226-275 5 UNITS 226-275 6 UNITS 226-275 7 UNITS 276-325 4 UNITS 276-325 7 UNITS 276-325 8 UNITS 276-325 9 UNITS 326-375 5 UNITS 326-375 9 UNITS 326-375 10 UNITS 326-375 11 UNITS >375 CONTACT MD >375 CONTACT MD >375 CONTACT MD >375 CONTACT MD Custom Dosing: [Choose: None/Novolog/Humalog] 100 units/ml Insulin inject subq as follows: GB Units 61-140 [] Units 141-175 [] Units 176-225 [] Units 226-275 [] Units 276-325 []Units 326-375 [] Units >375 Contact MD Allergies and Adverse Reactions: Allergies Allergy/AdvReac Type Severity Reaction Status Date / Time erythromycin base Allergy Severe Cramps Verified 09/15/17 19:18 [Erythromycin Base] Penicillins Allergy Severe Rash Verified 09/15/17 19:18 gluten Allergy Cramps Verified 09/18/17 16:44 codeine AdvReac Severe Nausea Verified 09/15/17 19:18 - Diet Type: Geriatric Texture: Regular Liquids: Thin May have monthly special meal: Yes - Therapies | Activity Rehabilitation Potential: Maximize functional status Activity: Activity as Tolerated Weight Bearing: Full Weight"
[2017-10-09] MEDS: POLYETHYLENE GLYCOL 3350 17 GM PACKET PO SCH (08:43)
[2017-10-09] MEDS: METOPROLOL TARTRATE 25 MG TABLET PO SCH ×2 (09:11→22:22)
[2017-10-09] MEDS: PRENATAL VITAMIN TABLET PO SCH (09:11)
[2017-10-09] MEDS: DOCUSATE SODIUM 250 MG CAPSULE PO SCH (09:11)
--- NOTE | 2017-10-09 10:59 | DISCHARGE SUMMARY ---
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 H. pylori gastritis 3. low folic acid level 4. history of celiac disease. - HPI History of Present Illness: 67yo woman brought in by EMS for welfare check on 09/15/17. Hx from Dr Christianson, has H/O EtOH. Charts shows she was a reasonable historian up until recently recently and had recent endoscopy with H. Pylori. Seems like an subacute decrease in mental status. Does use EtOH. Per Dr. Christianson she thinks probably a long history of alcohol abuse has caused this. She had a head CT a few days prior to admission that was grossly negative. Stayed in ER since no criteria for acute care admission and transitioned to [facility] on 09/18 to our service. - CONSULTS | PROCEDURES Consultations: none Procedures: 1. Bilateral hip films done because of history of fall in the outpatient setting. No acute fractures, no acute changes, no osteoarthritis 2. Brain MRI showing only senescent changes. No acute intracranial abnormalities 3. TSH is 1.91 4. Folate level low at 3.20 5. Hold blood vitamin B1 greater than 1200 6. Ammonia level 9 7. Salicylate level less than 6, acetaminophen level less than 10, ethyl alcohol less than 5, urine toxicology negative for all substances - HOSPITAL COURSE Hospital Course: The patient was in the emergency room for 3 days because no acute care criteria were met for admission. After 3 days, family was not able to pick her up and placement was not able to be found (she is unsafe to return to live alone) and she was placed under observation in the hospital. During her stay temperature was controlled at 36.1-36.6. Blood pressure was lowest at 104 systolic and highest 151 systolic. For the most part, she stayed in the 120's systolic. She is alert but disoriented middle-aged female who looks younger than stated age. Speech is fragmented. She is pleasant and cooperative but from one moment to the next does not remember who I am, where she is or why she is here. There are no focal neurological deficits. Workup was done to make sure there were no reversible causes of dementia. 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 Procedures were as above. Placement has now been found in [facility] and rehab. She is transferred in stable condition. On examination temperature is 36.8 pulse is 101 blood pressure is 151/76 respirations are 18 she is 96% on room air. She is a well-nourished well- developed middle-aged female who actually looks younger than stated age. Neck is supple. Lungs are completely clear to auscultation and percussion and there is no increased respiratory effort with talking or walking. She has a regular rate and rhythm without any murmurs rubs or gallops. The abdomen is benign and there is no fluid wave, no hepatomegaly, normal bowel sounds, no masses. Extremities are warm without clubbing cyanosis or edema. Neurologic exam confirms her fractured incoherent speech. Affect is that of a calm cooperative middle-aged female. She is disoriented to person, place, time. Upper extremity and lower extremity strength testing is normal. There are no tremors , and reflexes are normal. Mild ataxia with finger to nose. she ambulates in her room and the hallway without any assist. She is accompanied by aides at all times because of her memory loss. She feeds herself, and goes into the shower with only standby supervision but no assist. Greater than 30 minutes was spent in coordinating discharge. It is anticipated the power of defense attorney will be obtained by her daughter. Papers were filed Wednesday10/08/19 at 11 am as stated by her to Social Service. Since the patient is being transferred [place] an area that [place] specialty [place], neurology consultation may be appropriate if it is available in her facility. - ALLERGIES Allergies/Adverse Reactions: Allergies Allergy/AdvReac Type Severity Reaction Status Date / Time erythromycin base Allergy Severe Cramps Verified 09/15/17 19:18 [Erythromycin Base] Penicillins Allergy Severe Rash Verified 09/15/17 19:18 gluten Allergy Cramps Verified 09/18/17 16:44 codeine AdvReac Severe Nausea Verified 09/15/17 19:18 - MEDICATIONS Home Medications: Ambulatory Orders Medication Instructions Recorded Confirmed Omeprazole [PriLOSEC] 20 mg PO DAILY 09/17/17 09/17/17 Acetaminophen [Tylenol] 650 mg PO Q4HR PRN tablet 10/09/17 Donepezil [Aricept] 10 mg PO QPM tablet 10/09/17 Metoprolol Tartrate [Lopressor] 25 mg PO BID tablet 10/09/17 Vitamin [Trinatal Rx 1] 1 tab PO DAILYWM tablet 10/09/17 diphenhydrAMINE [Benadryl] 25 mg PO QPM PRN capsule 10/09/17 - LABS Result Diagrams: 10/04/17 05:28 10/04/17 05:28 - TIME SPENT Time Spent in Discharge (Minutes): 40"
--- NOTE | 2017-10-09 18:49 | PROVIDER PROGRESS NOTE ---
Subjective - Prog Note Date Prog Note Date: 10/09/17 Prog Note Time: 18:47 - Subjective Subjective: We got her ready for discharge, unfortunately her ride did not show up. She was supposed to go to a group home facility in [place]. Now the plan is for her t to go to the SNF tomorrow Current Medications - Current Medications Current Medications: Active Medications Acetaminophen (Tylenol) 650 mg PO Q4HR PRN PRN Reason: Pain 1 to 4 Last Admin: 10/08/17 20:39 Dose: 650 mg Diphenhydramine HCl (Benadryl) 25 mg PO QPM PRN PRN Reason: Insomnia Last Admin: 10/06/17 01:07 Dose: 25 mg Docusate Sodium (Colace 250mg Capsule) 250 - 500 mg PO DAILY [facility] Last Admin: 10/09/17 09:11 Dose: 250 mg Donepezil HCl (Aricept) 10 mg PO QPM [facility] Last Admin: 10/08/17 20:39 Dose: 10 mg Metoprolol Tartrate (Lopressor) 25 mg PO BID [facility] Last Admin: 10/09/17 09:11 Dose: 25 mg Polyethylene Glycol (Miralax) 17 gm PO DAILY [facility] Last Admin: 10/09/17 08:43 Dose: Not Given Multivit/Folic Acid/Iron (Trinatal Rx 1) 1 tab PO DAILYWM [facility] Last Admin: 10/09/17 09:11 Dose: 1 tab Prochlorperazine Edisylate (Compazine Inj) 10 mg IVP Q6HR PRN PRN Reason: Nausea / Vomiting Zolpidem Tartrate (Ambien) 5 mg PO QPM PRN PRN Reason: Insomnia Last Admin: 10/07/17 21:44 Dose: 5 mg Omeprazole [PriLOSEC] 20 mg PO DAILY 09/17/17 Objective - Vital Signs/Intake & Output Reviewed Vital Signs: Yes Intake & Output: Intake & Output 10/06/17 10/07/17 10/08/17 10/09/17 23:59 23:59 23:59 23:59 Intake Total 1350 1551 670 530 Balance 1350 1551 670 530 - Objective General Appearance: positive: No acute distress, Alert Eyes Bilateral: positive: PERRL, EOMI ENT: positive: Pharynx nml Neck: positive: No JVD. negative: Carotid bruit Respiratory: positive: Chest non-tender. negative: Wheezes, Rales, Rhonchi Cardiovascular: positive: Regular rate & rhythm. negative: Gallop/S4, Friction rub Abdomen: positive: Non-tender, No organomegaly, Nml bowel sounds, No distention Skin: positive: Warm, Dry Extremities: positive: Non-tender, Full ROM Neurologic/Psychiatric: positive: Motor nml, Sensation nml, Mood/affect nml, Disoriented to person, Disoriented to place, Disoriented to time - Lab Results Fish Bones: 10/04/17 05:28 10/04/17 05:28 Assessment/Plan - Problem List (1) Wernicke-Korsakoff syndrome Impression: with dementia. plan is [facility] placment in SNF. found one but no ride today, so goes tomorrow.
[2017-10-09] MEDS: DONEPEZIL 5 MG TABLET PO SCH (22:22)
[2017-10-10] MEDS: ZOLPIDEM 5 MG TABLET PO PRN (00:48)
[2017-10-10] MEDS: diphenhydrAMINE 25 MG CAPSULE PO PRN (00:48)
[2017-10-10 08:11] VITALS: BP 122/58
[2017-10-10] MEDS: METOPROLOL TARTRATE 25 MG TABLET PO SCH (08:32)
[2017-10-10] MEDS: DOCUSATE SODIUM 250 MG CAPSULE PO SCH (08:34)
[2017-10-10] MEDS: POLYETHYLENE GLYCOL 3350 17 GM PACKET PO SCH (08:35)
[2017-10-10] MEDS: PRENATAL VITAMIN TABLET PO SCH (08:37)
== END 2017-10-10 11:55 ==
LOC: EDUNIT# → ED 14:07 → INTOOBSV 09-17 15:43 → MS3 09-17 15:43 → OBSVTOIN 09-18 15:43 → ED 09-18 15:43 → INTOOBSV 09-18 15:43 → MS3 09-18 15:44 → ED 09-18 15:44 → OBS 09-18 21:06
PROVIDERS: ADMIT Internal Medicine; ATTEND Specialist
DX: F03.90 Unspecified dementia, unspecified severity, without behavioral disturbance, psychotic disturbance, mood disturbance, and anxiety (principal); F10.188 Alcohol abuse with other alcohol-induced disorder; K29.70 Gastritis, unspecified, without bleeding; B96.81 Helicobacter pylori [H. pylori] as the cause of diseases classified elsewhere; K90.0 Celiac disease; I10 Essential (primary) hypertension; Y90.0 Blood alcohol level of less than 20 mg/100 ml; Z60.2 Problems related to living alone; Z91.81 History of falling; Z68.20 Body mass index [BMI] 20.0-20.9, adult; Z91.83 Wandering in diseases classified elsewhere; Z87.39 Personal history of other diseases of the musculoskeletal system and connective tissue
CPT/HCPCS: 36415; 51701; 70551; 73521; 80053; 80306; 80307; 81001; 81003; 82140; 82550; 82746; 83690; 83735; 84425; 84443; 84484; 85025; 85610; 93005; 96372; 99285; A9270; G0480; J1650; J3411; 80320; 80329; 87086